=== PATIENT | male | born 1960 | race Caucasian/White ===

== ENCOUNTER 2018-08-11 12:07 | Inpatient (IN) | payer OTHER ==
--- NOTE | 2018-08-11 12:32 | PDOC ---
Rapid Medical Evaluation Chief Complaint: Edema Time Seen by Provider: 08/11/18 12:29 Medical Evaluation: Allergies Allergy/AdvReac Type Severity Reaction Status Date / Time No Known Allergies Allergy Verified 08/06/18 10:28 08/11/18 12:29 I have performed a brief in-person evaluation of this patient The patient present with a chief complaint of: wound to both lower extremities x [address] Madsen to admit to Dr. Mondragon service for iv antibiotics and further evaluation of wound Pertinent physical exam findings: NAD even and unlabored breathing dressing in place I have ordered the following: labs ordered The patient will proceed to the ED for further evaluation. Discharge Disposition - Diagnosis Wound infection - Referrals - Patient Instructions - Post Discharge Activity
[2018-08-11] MEDS ORDERED: VANCOMYCIN 1 GM in D5W (PRE-DOCKED) 1,000 MG/250 ML IVPB ONE (14:03)
[2018-08-11] MEDS ORDERED: PIPERACILLIN/TAZOB 3.375 GM 3.375 GM in DEXTROSE 5%-WATER - 50 ML IVPB SCH (14:15)
--- NOTE | 2018-08-11 15:05 | CON.ID ---
Consult Consult Specialty:: infectious diseases Referred by:: Reason for Consultation:: wound on both legs,probably osteo of the rt leg - History of Present Illness Chief Complaint: non healing wounds of the legs History of Present Illness: 57-year-old male presents with 2 wounds to his lower extremity one to his right foot and went to his left ankle both which he has received wound care and oral antibiotics without improvement. Patient denies fever but states his glucose has been in the 300s and states pain has increased to the areas. Patient denies fever, chills or weakness patient wound has been evaluated the wound on the right on the small toe with a hole beneath it which when probed reaches to bone which is osteo patient is going to get worked up with cx and also with mri to see how many bones are affected patient otherwise doing well - History Source History Provided By: Patient Limitations to Obtaining History: No Limitations - Alcohol/Substance Use Hx Alcohol Use: No - Smoking History Smoking history: Never smoked Have you smoked in the past 12 months: No Home Medications - Allergies Allergies/Adverse Reactions: Allergies Allergy/AdvReac Type Severity Reaction Status Date / Time No Known Allergies Allergy Verified 08/11/18 17:22 - Home Medications Home Medications: Ambulatory Orders RX: Ertapenem Sodium [Invanz -] 1 gm IVPB DAILY #30 vial 08/15/18 RX: Vancomycin HCl 1,250 mg IVPB Q24H #30 vial 08/15/18 Review of Systems - Review of Systems Constitutional: reports: No Symptoms Eyes: reports: No Symptoms HENT: reports: No Symptoms Neck: reports: No Symptoms Cardiovascular: reports: No Symptoms Respiratory: reports: No Symptoms Gastrointestinal: reports: No Symptoms Genitourinary: reports: No Symptoms Musculoskeletal: reports: Extremity Pain Integumentary: reports: Erythema, Wound, Other Neurological: reports: No Symptoms Endocrine: reports: No Symptoms Hematology/Lymphatic: reports: No Symptoms Psychiatric: reports: No Symptoms Physical Exam Vital Signs: Vital Signs Temperature 97.9 F 08/11/18 12:29 Pulse Rate 93 H 08/11/18 12:29 Respiratory Rate 20 08/11/18 12:29 Blood Pressure 111/77 08/11/18 12:29 O2 Sat by Pulse Oximetry (%) 98 08/11/18 12:29 Constitutional: Yes: Well Nourished, No Distress, Calm Eyes: Yes: Conjunctiva Clear Neck: Yes: Supple, Trachea Midline Cardiovascular: Yes: Regular Rate and Rhythm Respiratory: Yes: Regular, CTA Bilaterally Gastrointestinal: Yes: Normal Bowel Sounds, Soft Musculoskeletal: Yes: WNL Extremities: Yes: Erythema (left leg), Other Wound/Incision: Yes: Other (rt) Neurological: Yes: Alert, Oriented Psychiatric: Yes: Alert, Oriented Imaging - Results Chest X-ray: Report Reviewed, Image Reviewed Assessment/Plan wound infection rt foot osteo cellulitis of the left foot dm plan we will get mri of the foot will start on abx await for cx reports rest as per the team wound care
--- NOTE | 2018-08-11 15:16 | PDOC ---
History of Present Illness - General Chief Complaint: Wound Stated Complaint: ALEXANDREA SWOLLEN LEGS Time Seen by Provider: 08/11/18 12:29 History Source: Patient Exam Limitations: No Limitations - History of Present Illness Initial Comments: 08/11/18 14:17 57-year-old male presents to the ED for evaluation and admission sent over from wound care. Patient currently with 2 wounds to his lower extremity one to his right foot and went to his left ankle both which he has received wound care for an antibiotics without improvement. Patient denies fever but states his glucose has been in the 300s and states pain has increased to the areas. Patient denies fever, chills or weakness Timing/Duration: getting worse Severity: moderate Associated Symptoms: reports: other Past History - Travel Traveled outside of the country in the last 30 days: No Close contact w/someone who was outside of country & ill: No - Past Medical History Allergies/Adverse Reactions: Allergies Allergy/AdvReac Type Severity Reaction Status Date / Time No Known Allergies Allergy Verified 08/06/18 10:28 Home Medications: Ambulatory Orders Aspirin 81 mg PO DAILY 08/06/18 Humalog 10 units SCJ AC 08/06/18 Lantus 25 units SCJ DAILY 08/06/18 Lisinopril 1 tab PO DAILY 08/06/18 Torsemide DAILY 08/06/18 Cardiac Disorders: Yes (PPM/DEFIBRILLATOR) Diabetes: Yes HTN: Yes - Surgical History Cardiac Surgery: Yes (poacemaker/defibrillator) - Suicide/Smoking/Psychosocial Hx Smoking History: Never smoked Have you smoked in the past 12 months: No Information on smoking cessation initiated: No Hx Alcohol Use: No Drug/Substance Use Hx: No Patient Lives Alone: No Lives with/in: spouse/SO Review of Systems - Review of Systems Able to Perform ROS?: No Is the patient limited Lao proficient: No Constitutional: No: Symptoms Reported Respiratory: No: Symptoms reported Cardiac (ROS): No: Symptoms Reported Musculoskeletal: No: Symptoms Reported Integumentary: Yes: Other (open wounds) Hematologic/Lymphatic: No: Symptoms Reported *Physical Exam - Vital Signs Last Vital Signs Temp Pulse Resp BP Pulse Ox 97.9 F 93 H 20 111/77 98 08/11/18 12:29 08/11/18 12:29 08/11/18 12:29 08/11/18 12:29 08/11/18 12:29 - Physical Exam General Appearance: Yes: Nourished, Appropriately Dressed. No: Apparent Distress Respiratory/Chest: positive: Lungs Clear, Normal Breath Sounds. negative: Respiratory Distress, Accessory Muscle Use Cardiovascular: positive: Regular Rhythm, Regular Rate. negative: Murmur Vascular Pulses: Dorsalis-Pedis (R): 2+, Doralis-Pedis (L): 2+ Extremity: positive: Normal Capillary Refill. negative: Pedal Edema Integumentary: positive: Other (noted 1 x 2 cm open moist wound to the base of his right fifth toe. Surrounding skin intact. lateral aspect of left malleolus with open 4 x 4 cm moist wound without odor) ED Treatment Course - RADIOLOGY Radiology Studies Ordered: Category Date Time Status DUPLEX VASCUL US-1 LEG [US] Stat Ultrasound 08/11/18 13:58 Ordered Medical Decision Making - Medical Decision Making 08/11/18 14:22 Complaint: Nonhealing diabetic wound to his right foot and left ankle. Labs reviewed in patient with elevated CRP and ESR concerning for infection. X-ray reviewed with no obvious findings recommending MRI Exam. Patient with 2 nonhealing moist wounds to his right foot and left ankle. Plan: Labs, blood cultures, IV antibiotics, urine and will contact infectious disease as per wound care clinic recommendations 08/11/18 15:25 Negative for acute findings. Patient was seen by infectious disease physician and agrees with workup. Case discussed with Dr. wilde and accepted to service. *DC/Admit/Observation/Transfer Diagnosis at time of Disposition: Wound infection - Discharge Dispostion Decision to Admit order: Yes - Referrals - Patient Instructions - Post Discharge Activity
[2018-08-11] MEDS ORDERED: PIPERACILLIN/TAZOB 3.375 GM 3.375 GM/50 ML BAG IVPB ONE (15:56)
[2018-08-11 16:38] LABS: VENOUS PC02 59.1 mmHg (41-51); VENOUS PH 7.33 (7.31-7.41); VENOUS PO2 28.2 mmHg (30-40)
[2018-08-11 17:04] LABS: ALBUMIN 3.4 g/dl (3.4-5.0); ALK PHOS 141 U/L (45-117); ANION GAP 5 MMOL/L (8-16); BILIRUBIN,TOTAL 0.5 mg/dL (0.2-1); BLOOD UREA NITROGEN 34 mg/dL (7-18); CALCIUM 9.2 mg/dL (8.5-10.1); CHLORIDE 94 mmol/L (98-107); CO2 30 mmol/L (21-32); CREATININE 1.8 mg/dL (0.55-1.3); POTASSIUM 5.2 mmol/L (3.5-5.1); SGOT/AST 13 U/L (15-37); SGPT/ALT 18 U/L (13-61); SODIUM 129 mmol/L (136-145); TOT PROT 7.9 g/dl (6.4-8.2)
[2018-08-11 17:06] LABS: INR 1.09 (0.83-1.09); PROTHROMBIN TIME (PATIENT) 12.9 SEC (9.7-13.0)
[2018-08-11 17:14] LABS: GLUCOSE,RANDOM 398 mg/dL (74-106)
[2018-08-11] MEDS ORDERED: SODIUM CHLORIDE 1,000 ML IV STA (17:28)
[2018-08-11 18:29] LABS: BASO % 4.1 % (0-2.0); EOS % 3.7 % (0-4.5); HEMOGLOBIN 12.7 GM/dL (11.7-16.9); LYMPH % 17.6 % (8-40); MCHC 31.7 g/dl (32.0-35.9); MEAN CELL VOLUME 72.5 fl (80-96); MEAN PLT VOLUME 7.7 fl (7.5-11.1); MONO % 9.3 % (3.8-10.2); NEUT % 65.3 % (42.8-82.8); PLATELET COUNT 421 K/MM3 (134-434); RBC 5.52 M/mm3 (4.00-5.60); RDW 15.5 % (11.9-15.9); WHITE BLOOD COUNT 10.1 K/mm3 (4.0-10.0)
--- NOTE | 2018-08-11 20:06 | HP ---
Admitting History and Physical - Primary Care Physician PCP: Tyshawn Reynolds - Admission History of Present Illness: 57-year-old male presents to the ED for evaluation and admission sent over from wound care. Patient currently with 2 wounds to his lower extremity one to his right foot and went to his left ankle both which he has received wound care for an antibiotics without improvement. Patient denies fever but states his glucose has been in the 300s and states pain has increased to the areas. Patient denies fever, chills or weakness - Smoking History Smoking history: Never smoked Have you smoked in the past 12 months: No - Alcohol/Substance Use Hx Alcohol Use: No Home Medications - Allergies Allergies/Adverse Reactions: Allergies Allergy/AdvReac Type Severity Reaction Status Date / Time No Known Allergies Allergy Verified 08/11/18 17:22 - Home Medications Home Medications: Ambulatory Orders Unobtainable 08/11/18 Physical Examination Vital Signs: Vital Signs Temperature 98.0 F 08/11/18 18:23 Pulse Rate 90 08/11/18 18:23 Respiratory Rate 18 08/11/18 18:23 Blood Pressure 108/71 08/11/18 18:23 O2 Sat by Pulse Oximetry (%) 97 08/11/18 18:23 Constitutional: Yes: No Distress HENT: Yes: Atraumatic Neck: Yes: Supple Cardiovascular: Yes: Regular Rate and Rhythm Respiratory: Yes: CTA Bilaterally Gastrointestinal: Yes: Normal Bowel Sounds Extremities: Yes: Other (L ankle and R foot wound) Neurological: Yes: Alert, Oriented Labs: CBC, BMP 08/11/18 16:00 08/11/18 16:00 Problem List - Problems (1) Wound infection Assessment/Plan: L ankles r foot on abx wound care Code(s): T14.8XXA - OTHER INJURY OF UNSPECIFIED BODY REGION, INITIAL ENCOUNTER; L08.9 - LOCAL INFECTION OF THE SKIN AND SUBCUTANEOUS TISSUE, UNSP (2) Diabetes Assessment/Plan: on insulin and bgms Code(s): E11.9 - TYPE 2 DIABETES MELLITUS WITHOUT COMPLICATIONS Assessment/Plan Laboratory Tests 08/11/18 08/11/18 08/11/18 16:00 16:00 16:00 WBC 10.1 H RBC 5.52 Hgb 12.7 Hct 40.0 MCV 72.5 L MCH 23.0 L MCHC 31.7 L RDW 15.5 Plt Count 421 MPV 7.7 Absolute Neuts (auto) 6.6 Neutrophils % 65.3 Lymphocytes % 17.6 D Monocytes % 9.3 Eosinophils % 3.7 Basophils % 4.1 H D Nucleated RBC % 0 PT with INR 12.90 INR 1.09 PTT (Actin FS) 40.0 H VBG pH 7.33 POC VBG pCO2 59.1 H POC VBG pO2 28.2 L VBG HCO3 30.5 H VBG O2 Sat (John) 43.6 L VBG Base Excess 3.6 H Sodium Potassium Chloride Carbon Dioxide Anion Gap BUN Creatinine Creat Clearance w eGFR Random Glucose Calcium Total Bilirubin AST ALT Alkaline Phosphatase Total Protein Albumin 08/11/18 16:00 WBC RBC Hgb Hct MCV MCH MCHC RDW Plt Count MPV Absolute Neuts (auto) Neutrophils % Lymphocytes % Monocytes % Eosinophils % Basophils % Nucleated RBC % PT with INR INR PTT (Actin FS) VBG pH POC VBG pCO2 POC VBG pO2 VBG HCO3 VBG O2 Sat (John) VBG Base Excess Sodium 129 L Potassium 5.2 H Chloride 94 L Carbon Dioxide 30 Anion Gap 5 L BUN 34 H Creatinine 1.8 H Creat Clearance w eGFR 39.37 Random Glucose 398 H* Calcium 9.2 Total Bilirubin 0.5 AST 13 L ALT 18 Alkaline Phosphatase 141 H Total Protein 7.9 Albumin 3.4 Laboratory Tests 08/11/18 08/11/18 08/11/18 16:00 16:00 16:00 WBC 10.1 H RBC 5.52 Hgb 12.7 Hct 40.0 MCV 72.5 L MCH 23.0 L MCHC 31.7 L RDW 15.5 Plt Count 421 MPV 7.7 Absolute Neuts (auto) 6.6 Neutrophils % 65.3 Lymphocytes % 17.6 D Monocytes % 9.3 Eosinophils % 3.7 Basophils % 4.1 H D Nucleated RBC % 0 PT with INR 12.90 INR 1.09 PTT (Actin FS) 40.0 H VBG pH 7.33 POC VBG pCO2 59.1 H POC VBG pO2 28.2 L VBG HCO3 30.5 H VBG O2 Sat (John) 43.6 L VBG Base Excess 3.6 H Sodium Potassium Chloride Carbon Dioxide Anion Gap BUN Creatinine Creat Clearance w eGFR Random Glucose Calcium Total Bilirubin AST ALT Alkaline Phosphatase Total Protein Albumin 08/11/18 16:00 WBC RBC Hgb Hct MCV MCH MCHC RDW Plt Count MPV Absolute Neuts (auto) Neutrophils % Lymphocytes % Monocytes % Eosinophils % Basophils % Nucleated RBC % PT with INR INR PTT (Actin FS) VBG pH POC VBG pCO2 POC VBG pO2 VBG HCO3 VBG O2 Sat (John) VBG Base Excess Sodium 129 L Potassium 5.2 H Chloride 94 L Carbon Dioxide 30 Anion Gap 5 L BUN 34 H Creatinine 1.8 H Creat Clearance w eGFR 39.37 Random Glucose 398 H* Calcium 9.2 Total Bilirubin 0.5 AST 13 L ALT 18 Alkaline Phosphatase 141 H Total Protein 7.9 Albumin 3.4 Active Medications Generic Name Dose Route Start Last Admin Trade Name Freq PRN Reason Stop Dose Admin Acetaminophen 650 mg 08/11/18 20:07 Tylenol - PO Q6H PRN FEVER Al Hydroxide/Mg Hydroxide 30 ml 08/12/18 13:23 08/13/18 08:57 Mylanta Oral Suspension - PO 30 ml Q6H PRN Administration INDIGESTION Heparin Sodium (Porcine) 5,000 unit 08/11/18 22:00 08/14/18 10:18 Heparin - SQ 5,000 unit BID ANGELICA Administration Piperacillin Sod/Tazobactam 50 mls @ 100 mls/hr 08/11/18 21:30 08/14/18 13:59 Sod 2.25 gm/ Dextrose IVPB 100 mls/hr Q6H-IV ANGELICA Administration Protocol Insulin Aspart 1 vial 08/13/18 22:00 08/14/18 11:45 Novolog Vial Sliding Scale - SQ 8 units ACHS ANGELICA Administration Protocol Ondansetron HCl 4 mg 08/12/18 13:23 08/12/18 14:14 Zofran Injection IVPUSH 4 mg Q6H PRN Administration NAUSEA AND/OR VOMITING Pantoprazole Sodium 40 mg 08/12/18 13:30 08/14/18 10:18 Protonix - PO 40 mg DAILY ANGELICA Administration
[2018-08-11] MEDS ORDERED: ACETAMINOPHEN 325 MG TABLET (FP) PO PRN (20:07)
[2018-08-11] MEDS ORDERED: HEPARIN NA (PORCINE) 5,000 UNITS/ML 1ML VIAL SQ SCH (22:00)
[2018-08-11] MEDS ORDERED: DEXTROSE 5%-WATER - 50 ML IVPB ONE (22:31)
[2018-08-11] MEDS ORDERED: PIPERACILLIN/TAZOBACTAM 2.25 GM VIAL IVPB ONE (22:31)
[2018-08-11] MEDS: HEPARIN NA (PORCINE) 5,000 UNITS/ML 1ML VIAL SQ SCH (22:38)
[2018-08-11] MEDS: PIPERACILLIN/TAZOB 2.25 GM 2.25 GM in DEXTROSE 5%-WATER - 50 ML IVPB SCH (22:38)
[2018-08-12] MEDS ORDERED: PIPERACILLIN/TAZOBACTAM 2.25 GM VIAL IVPB ONE ×3 (02:29→14:30)
[2018-08-12] MEDS ORDERED: DEXTROSE 5%-WATER - 50 ML IVPB ONE ×3 (02:30→14:30)
[2018-08-12] MEDS: PIPERACILLIN/TAZOB 2.25 GM 2.25 GM in DEXTROSE 5%-WATER - 50 ML IVPB SCH ×4 (02:45→15:59)
[2018-08-12] MEDS: HEPARIN NA (PORCINE) 5,000 UNITS/ML 1ML VIAL SQ SCH (09:54)
--- NOTE | 2018-08-12 12:39 | PN ---
Progress Note, Physician History of Present Illness: patient feeling nauseous says he is throwing up - Current Medication List Current Medications: Active Medications Acetaminophen (Tylenol -) 650 mg PO Q6H PRN PRN Reason: FEVER Heparin Sodium (Porcine) (Heparin -) 5,000 unit SQ BID ANGELICA Last Admin: 08/12/18 09:54 Dose: 5,000 unit Piperacillin Sod/Tazobactam (Sod 2.25 gm/ Dextrose) 50 mls @ 100 mls/hr IVPB Q6H-IV ANGELICA; Protocol Last Admin: 08/12/18 09:54 Dose: 100 mls/hr - Objective Vital Signs: Vital Signs Temperature 99 F 08/12/18 05:48 Pulse Rate 90 08/12/18 05:48 Respiratory Rate 20 08/12/18 05:48 Blood Pressure 147/78 08/12/18 05:48 O2 Sat by Pulse Oximetry (%) 97 08/11/18 18:23 Constitutional: Yes: No Distress, Calm Cardiovascular: Yes: Regular Rate and Rhythm Respiratory: Yes: Regular, CTA Bilaterally Gastrointestinal: Yes: Normal Bowel Sounds, Soft Musculoskeletal: Yes: WNL Extremities: Yes: Other (osteo of the rt foot wounds on the left foot) Wound/Incision: Yes: Dressing Dry and Intact Neurological: Yes: Alert, Oriented Labs: CBC, BMP 08/11/18 16:00 08/11/18 16:00 INR, PTT INR 1.09 (0.83-1.09) 08/11/18 16:00 Assessment/Plan this patient with multiple medical problems who has wound going to the bone who was growing pseudomonas from the outside wound plan we will continue zosyn will get a mri of the leg rest as per the team will order esr and crp
[2018-08-12] MEDS ORDERED: ONDANSETRON 4 MG/2 ML VIAL IVPUSH PRN (13:23)
[2018-08-12] MEDS: MAG HYDROX/AL HYDROX/SIMETH 30 ML UNIT-DOSE CUP PO PRN (14:15)
[2018-08-12] MEDS: PANTOPRAZOLE 40 MG TABLET (FP) PO SCH (14:15)
--- NOTE | 2018-08-12 18:22 | PN ---
Progress Note, Physician - Current Medication List Current Medications: Active Medications Acetaminophen (Tylenol -) 650 mg PO Q6H PRN PRN Reason: FEVER Al Hydroxide/Mg Hydroxide (Mylanta Oral Suspension -) 30 ml PO Q6H PRN PRN Reason: INDIGESTION Last Admin: 08/12/18 14:15 Dose: 30 ml Heparin Sodium (Porcine) (Heparin -) 5,000 unit SQ BID ANGELICA Last Admin: 08/12/18 09:54 Dose: 5,000 unit Piperacillin Sod/Tazobactam (Sod 2.25 gm/ Dextrose) 50 mls @ 100 mls/hr IVPB Q6H-IV ANGELICA; Protocol Last Admin: 08/12/18 15:59 Dose: 100 mls/hr Ondansetron HCl (Zofran Injection) 4 mg IVPUSH Q6H PRN PRN Reason: NAUSEA AND/OR VOMITING Last Admin: 08/12/18 14:14 Dose: 4 mg Pantoprazole Sodium (Protonix -) 40 mg PO DAILY ANGELICA Last Admin: 08/12/18 14:15 Dose: 40 mg - Objective Vital Signs: Vital Signs Temperature 99 F 08/12/18 05:48 Pulse Rate 90 08/12/18 05:48 Respiratory Rate 20 08/12/18 05:48 Blood Pressure 147/78 08/12/18 05:48 O2 Sat by Pulse Oximetry (%) 97 08/11/18 18:23 Constitutional: Yes: No Distress HENT: Yes: Atraumatic Neck: Yes: Supple Cardiovascular: Yes: Regular Rate and Rhythm Respiratory: Yes: CTA Bilaterally Gastrointestinal: Yes: Normal Bowel Sounds Extremities: Yes: Other (b/l ankle wounds) Neurological: Yes: Alert, Oriented Labs: CBC, BMP 08/11/18 16:00 08/11/18 16:00 INR, PTT INR 1.09 (0.83-1.09) 08/11/18 16:00 Problem List - Problems (1) Wound infection Assessment/Plan: L ankles r foot on abx wound care Code(s): T14.8XXA - OTHER INJURY OF UNSPECIFIED BODY REGION, INITIAL ENCOUNTER; L08.9 - LOCAL INFECTION OF THE SKIN AND SUBCUTANEOUS TISSUE, UNSP (2) Diabetes Assessment/Plan: on insulin and bgms Code(s): E11.9 - TYPE 2 DIABETES MELLITUS WITHOUT COMPLICATIONS
[2018-08-13] MEDS ORDERED: PIPERACILLIN/TAZOBACTAM 2.25 GM VIAL IVPB ONE ×5 (00:31→21:42)
[2018-08-13] MEDS ORDERED: DEXTROSE 5%-WATER - 50 ML IVPB ONE ×5 (00:31→21:42)
[2018-08-13] MEDS: HEPARIN NA (PORCINE) 5,000 UNITS/ML 1ML VIAL SQ SCH ×3 (00:52→22:00)
[2018-08-13] MEDS: PIPERACILLIN/TAZOB 2.25 GM 2.25 GM in DEXTROSE 5%-WATER - 50 ML IVPB SCH ×5 (00:52→21:52)
[2018-08-13 07:09] LABS: EOS % 9.1 % (0-4.5); HEMATOCRIT 38.1 % (35.4-49); HEMOGLOBIN 12.2 GM/dL (11.7-16.9); LYMPH % 24.8 % (8-40); MCHC 32.1 g/dl (32.0-35.9); MEAN CELL VOLUME 71.8 fl (80-96); MEAN PLT VOLUME 7.7 fl (7.5-11.1); MONO % 8.6 % (3.8-10.2); NEUT % 56.5 % (42.8-82.8); PLATELET COUNT 447 K/MM3 (134-434); RBC 5.31 M/mm3 (4.00-5.60); RDW 15.7 % (11.9-15.9); WHITE BLOOD COUNT 8.5 K/mm3 (4.0-10.0)
[2018-08-13 07:37] LABS: ALBUMIN 3.1 g/dl (3.4-5.0); ALK PHOS 118 U/L (45-117); ANION GAP 7 MMOL/L (8-16); BILIRUBIN,TOTAL 0.5 mg/dL (0.2-1); BLOOD UREA NITROGEN 15 mg/dL (7-18); CALCIUM 8.6 mg/dL (8.5-10.1); CHLORIDE 103 mmol/L (98-107); CO2 26 mmol/L (21-32); CREATININE 1.5 mg/dL (0.55-1.3); GLUCOSE,RANDOM 213 mg/dL (74-106); POTASSIUM 4.7 mmol/L (3.5-5.1); SGOT/AST 13 U/L (15-37); SGPT/ALT 16 U/L (13-61); SODIUM 135 mmol/L (136-145); TOT PROT 7.1 g/dl (6.4-8.2)
[2018-08-13] MEDS: MAG HYDROX/AL HYDROX/SIMETH 30 ML UNIT-DOSE CUP PO PRN (08:57)
[2018-08-13] MEDS: PANTOPRAZOLE 40 MG TABLET (FP) PO SCH (09:00)
--- NOTE | 2018-08-13 10:58 | PN ---
Progress Note, Physician History of Present Illness: stable no new issues - Current Medication List Current Medications: Active Medications Acetaminophen (Tylenol -) 650 mg PO Q6H PRN PRN Reason: FEVER Al Hydroxide/Mg Hydroxide (Mylanta Oral Suspension -) 30 ml PO Q6H PRN PRN Reason: INDIGESTION Last Admin: 08/13/18 08:57 Dose: 30 ml Heparin Sodium (Porcine) (Heparin -) 5,000 unit SQ BID ANGELICA Last Admin: 08/13/18 09:11 Dose: 5,000 unit Piperacillin Sod/Tazobactam (Sod 2.25 gm/ Dextrose) 50 mls @ 100 mls/hr IVPB Q6H-IV ANGELICA; Protocol Last Admin: 08/13/18 08:58 Dose: 100 mls/hr Ondansetron HCl (Zofran Injection) 4 mg IVPUSH Q6H PRN PRN Reason: NAUSEA AND/OR VOMITING Last Admin: 08/12/18 14:14 Dose: 4 mg Pantoprazole Sodium (Protonix -) 40 mg PO DAILY ANGELICA Last Admin: 08/13/18 09:00 Dose: 40 mg - Objective Vital Signs: Vital Signs Temperature 98.3 F 08/13/18 09:00 Pulse Rate 72 08/13/18 09:00 Respiratory Rate 20 08/13/18 09:00 Blood Pressure 141/88 08/13/18 09:00 O2 Sat by Pulse Oximetry (%) 97 08/11/18 18:23 Constitutional: Yes: No Distress, Calm Cardiovascular: Yes: Regular Rate and Rhythm Respiratory: Yes: Regular, CTA Bilaterally Gastrointestinal: Yes: Normal Bowel Sounds, Soft Musculoskeletal: Yes: WNL Extremities: Yes: Other Wound/Incision: Yes: Dressing Dry and Intact Neurological: Yes: Alert, Oriented Psychiatric: Yes: Alert, Oriented Labs: CBC, BMP 08/13/18 05:30 08/13/18 05:30 INR, PTT INR 1.09 (0.83-1.09) 08/11/18 16:00 Assessment/Plan wound infection rt foot osteo cellulitis of the left foot dm plan will switch for patient to get a nuclear scan continue abx wound care await for cx once we have cx will decide final plan
[2018-08-13] MEDS ORDERED: INSULIN (NOVOLOG) ASPART 100 UNITS/ML 10ML VIAL SQ ONE (12:45)
[2018-08-13 15:26] VITALS: BMI 26.7
--- NOTE | 2018-08-13 17:26 | PN ---
Progress Note, Physician - Current Medication List Current Medications: Active Medications Acetaminophen (Tylenol -) 650 mg PO Q6H PRN PRN Reason: FEVER Al Hydroxide/Mg Hydroxide (Mylanta Oral Suspension -) 30 ml PO Q6H PRN PRN Reason: INDIGESTION Last Admin: 08/13/18 08:57 Dose: 30 ml Heparin Sodium (Porcine) (Heparin -) 5,000 unit SQ BID ANGELICA Last Admin: 08/13/18 09:11 Dose: 5,000 unit Piperacillin Sod/Tazobactam (Sod 2.25 gm/ Dextrose) 50 mls @ 100 mls/hr IVPB Q6H-IV ANGELICA; Protocol Last Admin: 08/13/18 14:42 Dose: 100 mls/hr Ondansetron HCl (Zofran Injection) 4 mg IVPUSH Q6H PRN PRN Reason: NAUSEA AND/OR VOMITING Last Admin: 08/12/18 14:14 Dose: 4 mg Pantoprazole Sodium (Protonix -) 40 mg PO DAILY ANGELICA Last Admin: 08/13/18 09:00 Dose: 40 mg - Objective Vital Signs: Vital Signs Temperature 98.3 F 08/13/18 09:00 Pulse Rate 72 08/13/18 09:00 Respiratory Rate 20 08/13/18 09:00 Blood Pressure 141/88 08/13/18 09:00 O2 Sat by Pulse Oximetry (%) 97 08/13/18 09:00 HENT: Yes: Atraumatic Neck: Yes: Supple Cardiovascular: Yes: Regular Rate and Rhythm Respiratory: Yes: CTA Bilaterally Gastrointestinal: Yes: Normal Bowel Sounds Extremities: Yes: Other (wound left ankle r foot) Edema: No Neurological: Yes: Alert, Oriented Labs: CBC, BMP 08/13/18 05:30 08/13/18 05:30 INR, PTT INR 1.09 (0.83-1.09) 08/11/18 16:00 Problem List - Problems (1) Wound infection Assessment/Plan: both ankles on abx wound care Code(s): T14.8XXA - OTHER INJURY OF UNSPECIFIED BODY REGION, INITIAL ENCOUNTER; L08.9 - LOCAL INFECTION OF THE SKIN AND SUBCUTANEOUS TISSUE, UNSP
[2018-08-13] MEDS: INSULIN SLIDING SCALE (NOVOLOG) 1 VIAL SQ SCH (22:01)
[2018-08-14] MEDS ORDERED: PIPERACILLIN/TAZOBACTAM 2.25 GM VIAL IVPB ONE ×3 (02:42→21:15)
[2018-08-14] MEDS ORDERED: DEXTROSE 5%-WATER - 50 ML IVPB ONE ×2 (02:43→21:16)
[2018-08-14] MEDS: PIPERACILLIN/TAZOB 2.25 GM 2.25 GM in DEXTROSE 5%-WATER - 50 ML IVPB SCH ×4 (02:49→21:28)
[2018-08-14] MEDS ORDERED: INSULIN (NOVOLOG) ASPART 100 UNITS/ML 10ML VIAL ONE (06:33)
[2018-08-14] MEDS: INSULIN SLIDING SCALE (NOVOLOG) 1 VIAL SQ SCH ×4 (06:37→21:28)
[2018-08-14] MEDS ORDERED: DEXTROSE 5%-WATER - 100 ML IVPB ONE (10:10)
[2018-08-14] MEDS: HEPARIN NA (PORCINE) 5,000 UNITS/ML 1ML VIAL SQ SCH ×2 (10:18→21:28)
[2018-08-14] MEDS: PANTOPRAZOLE 40 MG TABLET (FP) PO SCH (10:18)
--- NOTE | 2018-08-14 16:56 | PN ---
Progress Note, Physician - Current Medication List Current Medications: Active Medications Acetaminophen (Tylenol -) 650 mg PO Q6H PRN PRN Reason: FEVER Al Hydroxide/Mg Hydroxide (Mylanta Oral Suspension -) 30 ml PO Q6H PRN PRN Reason: INDIGESTION Last Admin: 08/13/18 08:57 Dose: 30 ml Heparin Sodium (Porcine) (Heparin -) 5,000 unit SQ BID [facility] Last Admin: 08/14/18 10:18 Dose: 5,000 unit Piperacillin Sod/Tazobactam (Sod 2.25 gm/ Dextrose) 50 mls @ 100 mls/hr IVPB Q6H-IV ANGELICA; Protocol Last Admin: 08/14/18 13:59 Dose: 100 mls/hr Insulin Aspart (Novolog Vial Sliding Scale -) 1 vial SQ ACHS [facility]; Protocol Last Admin: 08/14/18 11:45 Dose: 8 units Ondansetron HCl (Zofran Injection) 4 mg IVPUSH Q6H PRN PRN Reason: NAUSEA AND/OR VOMITING Last Admin: 08/12/18 14:14 Dose: 4 mg Pantoprazole Sodium (Protonix -) 40 mg PO DAILY [facility] Last Admin: 08/14/18 10:18 Dose: 40 mg - Objective Vital Signs: Vital Signs Temperature 97.5 F L 08/14/18 14:40 Pulse Rate 81 08/14/18 14:40 Respiratory Rate 20 08/14/18 06:00 Blood Pressure 148/83 08/14/18 14:40 O2 Sat by Pulse Oximetry (%) 97 08/13/18 09:00 Constitutional: Yes: No Distress HENT: Yes: Atraumatic Neck: Yes: Supple Cardiovascular: Yes: Regular Rate and Rhythm Respiratory: Yes: CTA Bilaterally Gastrointestinal: Yes: Normal Bowel Sounds Extremities: Yes: Other (left and and R foot wound) Neurological: Yes: Alert, Oriented Labs: CBC, BMP 08/13/18 05:30 08/13/18 05:30 INR, PTT INR 1.09 (0.83-1.09) 08/11/18 16:00 Problem List - Problems (1) Wound infection Assessment/Plan: L ankles..r foot on abx wound care Code(s): T14.8XXA - OTHER INJURY OF UNSPECIFIED BODY REGION, INITIAL ENCOUNTER; L08.9 - LOCAL INFECTION OF THE SKIN AND SUBCUTANEOUS TISSUE, UNSP (2) Diabetes Assessment/Plan: on insulin and bgms Code(s): E11.9 - TYPE 2 DIABETES MELLITUS WITHOUT COMPLICATIONS
--- NOTE | 2018-08-14 17:46 | PN ---
Progress Note, Physician History of Present Illness: patient doing well no new issues patient cannot get a mri calustrophobic - Current Medication List Current Medications: Active Medications Acetaminophen (Tylenol -) 650 mg PO Q6H PRN PRN Reason: FEVER Al Hydroxide/Mg Hydroxide (Mylanta Oral Suspension -) 30 ml PO Q6H PRN PRN Reason: INDIGESTION Last Admin: 08/13/18 08:57 Dose: 30 ml Heparin Sodium (Porcine) (Heparin -) 5,000 unit SQ BID ANGELICA Last Admin: 08/14/18 10:18 Dose: 5,000 unit Piperacillin Sod/Tazobactam (Sod 2.25 gm/ Dextrose) 50 mls @ 100 mls/hr IVPB Q6H-IV ANGELICA; Protocol Last Admin: 08/14/18 13:59 Dose: 100 mls/hr Insulin Aspart (Novolog Vial Sliding Scale -) 1 vial SQ ACHS ANGELICA; Protocol Last Admin: 08/14/18 17:22 Dose: 10 units Ondansetron HCl (Zofran Injection) 4 mg IVPUSH Q6H PRN PRN Reason: NAUSEA AND/OR VOMITING Last Admin: 08/12/18 14:14 Dose: 4 mg Pantoprazole Sodium (Protonix -) 40 mg PO DAILY ANGELICA Last Admin: 08/14/18 10:18 Dose: 40 mg - Objective Vital Signs: Vital Signs Temperature 97.5 F L 08/14/18 14:40 Pulse Rate 81 08/14/18 14:40 Respiratory Rate 20 08/14/18 06:00 Blood Pressure 148/83 08/14/18 14:40 O2 Sat by Pulse Oximetry (%) 97 08/13/18 09:00 Constitutional: Yes: Well Nourished, No Distress Neck: Yes: Supple Cardiovascular: Yes: Regular Rate and Rhythm Respiratory: Yes: Regular, CTA Bilaterally Musculoskeletal: Yes: WNL Extremities: Yes: Other Neurological: Yes: Alert, Oriented Psychiatric: Yes: Alert, Oriented Labs: CBC, BMP 08/13/18 05:30 08/13/18 05:30 INR, PTT INR 1.09 (0.83-1.09) 08/11/18 16:00 Assessment/Plan this patient with multiple medical problems who has wound going to the bone who was growing pseudomonas from the outside wound plan we will continue zosyn cannot get a mri ordered a stat triphase scan will also get a picc line tomorrow plan treatment rest as per the team
[2018-08-15] MEDS ORDERED: PIPERACILLIN/TAZOBACTAM 2.25 GM VIAL IVPB ONE ×2 (03:06→09:05)
[2018-08-15] MEDS ORDERED: DEXTROSE 5%-WATER - 50 ML IVPB ONE ×2 (03:06→09:06)
[2018-08-15] MEDS: PIPERACILLIN/TAZOB 2.25 GM 2.25 GM in DEXTROSE 5%-WATER - 50 ML IVPB SCH ×2 (03:07→09:19)
[2018-08-15] MEDS: INSULIN SLIDING SCALE (NOVOLOG) 1 VIAL SQ SCH ×3 (06:00→16:41)
[2018-08-15] MEDS: PANTOPRAZOLE 40 MG TABLET (FP) PO SCH (09:19)
[2018-08-15] MEDS: HEPARIN NA (PORCINE) 5,000 UNITS/ML 1ML VIAL SQ SCH (09:19)
[2018-08-15] MEDS ORDERED: INSULIN (NOVOLOG) ASPART 100 UNITS/ML 10ML VIAL ONE ×2 (11:18→16:37)
--- NOTE | 2018-08-15 12:53 | PN ---
Progress Note, Physician - Current Medication List Current Medications: Active Medications Acetaminophen (Tylenol -) 650 mg PO Q6H PRN PRN Reason: FEVER Al Hydroxide/Mg Hydroxide (Mylanta Oral Suspension -) 30 ml PO Q6H PRN PRN Reason: INDIGESTION Last Admin: 08/13/18 08:57 Dose: 30 ml Heparin Sodium (Porcine) (Heparin -) 5,000 unit SQ BID ANGELICA Last Admin: 08/15/18 09:19 Dose: 5,000 unit Piperacillin Sod/Tazobactam (Sod 2.25 gm/ Dextrose) 50 mls @ 100 mls/hr IVPB Q6H-IV ANGELICA; Protocol Last Admin: 08/15/18 09:19 Dose: 100 mls/hr Insulin Aspart (Novolog Vial Sliding Scale -) 1 vial SQ ACHS [facility]; Protocol Last Admin: 08/15/18 11:42 Dose: 4 units Ondansetron HCl (Zofran Injection) 4 mg IVPUSH Q6H PRN PRN Reason: NAUSEA AND/OR VOMITING Last Admin: 08/12/18 14:14 Dose: 4 mg Pantoprazole Sodium (Protonix -) 40 mg PO DAILY [facility] Last Admin: 08/15/18 09:19 Dose: 40 mg - Objective Vital Signs: Vital Signs Temperature 98.1 F 08/15/18 09:00 Pulse Rate 75 08/15/18 09:00 Respiratory Rate 20 08/15/18 09:00 Blood Pressure 143/83 08/15/18 09:00 O2 Sat by Pulse Oximetry (%) 97 08/13/18 09:00 Labs: CBC, BMP 08/13/18 05:30 08/13/18 05:30 INR, PTT INR 1.09 (0.83-1.09) 08/11/18 16:00 Problem List - Problems (1) Wound infection Code(s): T14.8XXA - OTHER INJURY OF UNSPECIFIED BODY REGION, INITIAL ENCOUNTER; L08.9 - LOCAL INFECTION OF THE SKIN AND SUBCUTANEOUS TISSUE, UNSP (2) Diabetes Code(s): E11.9 - TYPE 2 DIABETES MELLITUS WITHOUT COMPLICATIONS
--- NOTE | 2018-08-15 13:20 | PN ---
Progress Note, Physician History of Present Illness: patient stable no issues 1 st phase of scan done awaiting second phase - Current Medication List Current Medications: Active Medications Acetaminophen (Tylenol -) 650 mg PO Q6H PRN PRN Reason: FEVER Al Hydroxide/Mg Hydroxide (Mylanta Oral Suspension -) 30 ml PO Q6H PRN PRN Reason: INDIGESTION Last Admin: 08/13/18 08:57 Dose: 30 ml Heparin Sodium (Porcine) (Heparin -) 5,000 unit SQ BID ANGELICA Last Admin: 08/15/18 09:19 Dose: 5,000 unit Piperacillin Sod/Tazobactam (Sod 2.25 gm/ Dextrose) 50 mls @ 100 mls/hr IVPB Q6H-IV [facility]ELICA; Protocol Last Admin: 08/15/18 09:19 Dose: 100 mls/hr Insulin Aspart (Novolog Vial Sliding Scale -) 1 vial SQ ACHS [facility]; Protocol Last Admin: 08/15/18 11:42 Dose: 4 units Ondansetron HCl (Zofran Injection) 4 mg IVPUSH Q6H PRN PRN Reason: NAUSEA AND/OR VOMITING Last Admin: 08/12/18 14:14 Dose: 4 mg Pantoprazole Sodium (Protonix -) 40 mg PO DAILY ANGELICA Last Admin: 08/15/18 09:19 Dose: 40 mg - Objective Vital Signs: Vital Signs Temperature 98.1 F 08/15/18 09:00 Pulse Rate 75 08/15/18 09:00 Respiratory Rate 20 08/15/18 09:00 Blood Pressure 143/83 08/15/18 09:00 O2 Sat by Pulse Oximetry (%) 97 08/13/18 09:00 Constitutional: Yes: No Distress, Calm Cardiovascular: Yes: Regular Rate and Rhythm Respiratory: Yes: Regular, CTA Bilaterally Gastrointestinal: Yes: Normal Bowel Sounds, Soft Musculoskeletal: Yes: WNL Extremities: Yes: Other Neurological: Yes: Alert, Oriented Psychiatric: Yes: Alert, Oriented Labs: CBC, BMP 08/13/18 05:30 08/13/18 05:30 INR, PTT INR 1.09 (0.83-1.09) 08/11/18 16:00 Assessment/Plan patients repeat cx result noted all organisms noted no pseudomonas noted rt foot osteo Wound infection Code(s): T14.8XXA - OTHER INJURY OF UNSPECIFIED BODY REGION, INITIAL ENCOUNTER; L08.9 - LOCAL INFECTION OF THE SKIN AND SUBCUTANEOUS TISSUE, UNSP cellulitis of the leg pain legs plan after looking at all the cx reports patient will need two abx vanco daily and ertapenam daily both for a total duration of 5 weeks wound care rest as per the team patient will need cbc esr crp bmp weekly wound care rest as per the team
[2018-08-15] MEDS ORDERED: VANCOMYCIN HCL 1,250 MG in DEXTROSE 5%-WATER - 250 ML IVPB SCH (14:00)
[2018-08-15] MEDS ORDERED: ERTAPENEM SODIUM 1 GM in SODIUM CHLORIDE 50 ML IVPB SCH (14:00)
--- NOTE | 2018-08-15 14:06 | DS ---
Physical Examination Vital Signs: Vital Signs Temperature 98.1 F 08/15/18 09:00 Pulse Rate 75 08/15/18 09:00 Respiratory Rate 20 08/15/18 09:00 Blood Pressure 143/83 08/15/18 09:00 O2 Sat by Pulse Oximetry (%) 97 08/13/18 09:00 Labs: CBC, BMP 08/13/18 05:30 08/13/18 05:30 Discharge Summary Reason For Visit: LOCAL INFECTION OF WOUND Current Active Problems Diabetes (Acute) Wound infection (Acute) - Instructions Diet, Activity, Other Instructions: duration of iv antibiotics per ID - Home Medications Comprehensive Discharge Medication List: Ambulatory Orders Ertapenem Sodium [Invanz -] 1 gm IVPB DAILY #30 vial 08/15/18 Vancomycin HCl 1,250 mg IVPB Q24H #30 vial 08/15/18 dc
[2018-08-15 15:29] VITALS: BP 148/73; PULSE 94; TEMP 97.5
[2018-08-15] MEDS ORDERED: PT OWN MED DRAWER 7, Y5N ONE (16:17)
== END 2018-08-15 19:35 | disposition home or self-care (01) | DRG 638 ==
LOC: JER 12:07 → JERBED 15:16 → J6S 19:19
PROVIDERS: ADMIT Internal Medicine; ATTEND Internal Medicine
PROC: 02HV33Z Insertion of Infusion Device into Superior Vena Cava, Percutaneous Approach (ICD-10-PCS; principal; 2018-08-15)
PROC: B518ZZA Fluoroscopy of Superior Vena Cava, Guidance (ICD-10-PCS; 2018-08-15)
DX: E11.622 Type 2 diabetes mellitus with other skin ulcer (principal); L97.428 Non-pressure chronic ulcer of left heel and midfoot with other specified severity; L97.918 Non-pressure chronic ulcer of unspecified part of right lower leg with other specified severity; L03.116 Cellulitis of left lower limb; M86.8X7 Other osteomyelitis, ankle and foot; E11.621 Type 2 diabetes mellitus with foot ulcer; E11.65 Type 2 diabetes mellitus with hyperglycemia; B96.5 Pseudomonas (aeruginosa) (mallei) (pseudomallei) as the cause of diseases classified elsewhere; L08.9 Local infection of the skin and subcutaneous tissue, unspecified; Z95.810 Presence of automatic (implantable) cardiac defibrillator
CPT/HCPCS: 36415; 36558; 71046-TC-FY; 77001-TC-FY; 78315-TC; 80053; 82803; 82962; 83036; 85025; 85610; 85651; 85730; 86140; 87040; 87070; 87077; 87186; 87205; 93971-TC; 99283-25; A9503; C1751; G0463-25; J1644; J7030

== ENCOUNTER 2018-08-16 09:18 | Day surgery (SDC) | payer OTHER ==
[2018-08-16] MEDS ORDERED: ERTAPENEM SODIUM 1 GM in DEXTROSE 5%-WATER - 50 ML IVPB ONE (10:00)
[2018-08-16] MEDS ORDERED: VANCOMYCIN HCL 1,250 MG in DEXTROSE 5%-WATER - 250 ML IVPB ONE (10:00)
[2018-08-16] MEDS ORDERED: ERTAPENEM SODIUM 1 GM in SODIUM CHLORIDE 50 ML IVPB ONE (10:00)
[2018-08-16 12:59] VITALS: BP 130/69; PULSE 91; TEMP 98.1
== END 2018-08-16 12:30 | disposition home or self-care (01) ==
LOC: JINFUSION 09:18 → J7W 09:25 → JINFUSION 12:30
PROVIDERS: ATTEND Internal Medicine Infectious Disease
DX: E11.621 Type 2 diabetes mellitus with foot ulcer (principal); L97.428 Non-pressure chronic ulcer of left heel and midfoot with other specified severity; L97.918 Non-pressure chronic ulcer of unspecified part of right lower leg with other specified severity; L03.116 Cellulitis of left lower limb; M86.8X7 Other osteomyelitis, ankle and foot; B96.5 Pseudomonas (aeruginosa) (mallei) (pseudomallei) as the cause of diseases classified elsewhere
CPT/HCPCS: 96365; 96366; 96367

== ENCOUNTER 2018-08-17 08:31 | Day surgery (SDC) | payer OTHER ==
[2018-08-17] MEDS ORDERED: ERTAPENEM SODIUM 1 GM in SODIUM CHLORIDE 50 ML IVPB ONE (09:30)
[2018-08-17] MEDS ORDERED: VANCOMYCIN HCL 1,250 MG in DEXTROSE 5%-WATER - 250 ML IVPB ONE (09:45)
[2018-08-17] MEDS ORDERED: VANCOMYCIN 1 GM PREMIX - 1 GM/200 ML BAG IVPB ONE (09:45)
[2018-08-17 11:43] VITALS: TEMP 98.4
[2018-08-17 12:20] VITALS: BP 141/89; PULSE 91
== END 2018-08-17 12:08 | disposition home or self-care (01) ==
LOC: JINFUSION 08:31 → J7W 08:32 → JINFUSION 12:08
PROVIDERS: ATTEND Internal Medicine Infectious Disease
DX: E11.621 Type 2 diabetes mellitus with foot ulcer (principal); L97.428 Non-pressure chronic ulcer of left heel and midfoot with other specified severity; L97.918 Non-pressure chronic ulcer of unspecified part of right lower leg with other specified severity; L03.116 Cellulitis of left lower limb; M86.8X7 Other osteomyelitis, ankle and foot; B96.5 Pseudomonas (aeruginosa) (mallei) (pseudomallei) as the cause of diseases classified elsewhere
CPT/HCPCS: 96365; 96366; 96367

== ENCOUNTER 2018-08-18 09:50 | Day surgery (SDC) | payer OTHER ==
[2018-08-18] MEDS ORDERED: ERTAPENEM SODIUM 1 GM in SODIUM CHLORIDE 50 ML IVPB ONE (10:45)
[2018-08-18] MEDS ORDERED: VANCOMYCIN HCL 1,250 MG in SODIUM CHLORIDE 250 ML IVPB ONE (10:45)
[2018-08-18 11:06] VITALS: TEMP 97.5
[2018-08-18 13:29] VITALS: BP 114/77; PULSE 99
== END 2018-08-18 13:20 | disposition home or self-care (01) ==
LOC: JINFUSION 09:50
PROVIDERS: ATTEND Internal Medicine Infectious Disease
DX: E11.621 Type 2 diabetes mellitus with foot ulcer (principal); L97.428 Non-pressure chronic ulcer of left heel and midfoot with other specified severity; L97.918 Non-pressure chronic ulcer of unspecified part of right lower leg with other specified severity; L03.116 Cellulitis of left lower limb; M86.8X7 Other osteomyelitis, ankle and foot; B96.5 Pseudomonas (aeruginosa) (mallei) (pseudomallei) as the cause of diseases classified elsewhere
CPT/HCPCS: 96365; 96366; 96367; G0480

== ENCOUNTER 2018-08-19 08:51 | Day surgery (SDC) | payer OTHER ==
[2018-08-19] MEDS ORDERED: ERTAPENEM SODIUM 1 GM in SODIUM CHLORIDE 50 ML IVPB ONE (09:00)
[2018-08-19] MEDS ORDERED: SODIUM CHLORIDE IVPB ONE (09:00)
[2018-08-19] MEDS ORDERED: VANCOMYCIN IVPB ONE (09:00)
[2018-08-19 10:05] VITALS: TEMP 98
[2018-08-19 11:49] VITALS: BP 131/70; PULSE 94
== END 2018-08-19 11:50 | disposition home or self-care (01) ==
LOC: JINFUSION 08:51
PROVIDERS: ATTEND Internal Medicine Infectious Disease
DX: E11.621 Type 2 diabetes mellitus with foot ulcer (principal); L97.428 Non-pressure chronic ulcer of left heel and midfoot with other specified severity; L97.918 Non-pressure chronic ulcer of unspecified part of right lower leg with other specified severity; L03.116 Cellulitis of left lower limb; M86.8X7 Other osteomyelitis, ankle and foot; B96.5 Pseudomonas (aeruginosa) (mallei) (pseudomallei) as the cause of diseases classified elsewhere
CPT/HCPCS: 96365; 96366; 96367

== ENCOUNTER 2018-08-20 09:06 | Day surgery (SDC) | payer OTHER ==
[~2018-08-20 09:06] MED LIST: ERTAPENEM SODIUM 1 GM in SODIUM CHLORIDE 50 ML IVPB ONE; SODIUM CHLORIDE IVPB ONE; VANCOMYCIN IVPB ONE
[2018-08-20 09:34] LABS: HEMATOCRIT 38.5 % (35.4-49); HEMOGLOBIN 12.4 GM/dL (11.7-16.9); MCH 23.3 pg (25.7-33.7); MCHC 32.3 g/dl (32.0-35.9); MEAN CELL VOLUME 72.1 fl (80-96); MEAN PLT VOLUME 7.5 fl (7.5-11.1); PLATELET COUNT 430 K/MM3 (134-434); RBC 5.34 M/mm3 (4.00-5.60); WHITE BLOOD COUNT 9.2 K/mm3 (4.0-10.0)
[2018-08-20 09:53] LABS: ANION GAP 8 MMOL/L (8-16); BLOOD UREA NITROGEN 23 mg/dL (7-18); CALCIUM 8.8 mg/dL (8.5-10.1); CHLORIDE 103 mmol/L (98-107); CO2 27 mmol/L (21-32); CREATININE 1.8 mg/dL (0.55-1.3); GLUCOSE,RANDOM 292 mg/dL (74-106); POTASSIUM 4.7 mmol/L (3.5-5.1); SODIUM 137 mmol/L (136-145)
[2018-08-20 12:14] LABS: ERYTHROCYTE SEDIMENTATION RATE 62 mm/hr (0-20)
[2018-08-20 13:20] VITALS: BP 110/70; PULSE 88; TEMP 97
== END 2018-08-20 12:32 | disposition home or self-care (01) ==
LOC: JINFUSION 09:06
PROVIDERS: ATTEND Internal Medicine Infectious Disease
DX: E11.621 Type 2 diabetes mellitus with foot ulcer (principal); L97.428 Non-pressure chronic ulcer of left heel and midfoot with other specified severity; L97.918 Non-pressure chronic ulcer of unspecified part of right lower leg with other specified severity; L03.116 Cellulitis of left lower limb; M86.8X7 Other osteomyelitis, ankle and foot; B96.5 Pseudomonas (aeruginosa) (mallei) (pseudomallei) as the cause of diseases classified elsewhere
CPT/HCPCS: 11042; 11045; 36415; 80048; 85027; 85651; 86140; 96365; 96366; 96367; 96375; G0480

== ENCOUNTER 2018-08-21 09:16 | Day surgery (SDC) | payer OTHER ==
[2018-08-21 09:58] VITALS: TEMP 97.9
[2018-08-21 12:30] VITALS: BP 106/79; PULSE 96
== END 2018-08-21 12:15 | disposition home or self-care (01) ==
LOC: JINFUSION 09:16
PROVIDERS: ATTEND Internal Medicine Infectious Disease
DX: E11.621 Type 2 diabetes mellitus with foot ulcer (principal); L97.428 Non-pressure chronic ulcer of left heel and midfoot with other specified severity; L97.918 Non-pressure chronic ulcer of unspecified part of right lower leg with other specified severity; L03.116 Cellulitis of left lower limb; M86.8X7 Other osteomyelitis, ankle and foot; B96.5 Pseudomonas (aeruginosa) (mallei) (pseudomallei) as the cause of diseases classified elsewhere
CPT/HCPCS: 96365; 96366; 96367

== ENCOUNTER 2018-08-22 08:43 | Day surgery (SDC) | payer OTHER ==
[2018-08-22] MEDS ORDERED: ERTAPENEM SODIUM 1 GM in SODIUM CHLORIDE 50 ML IVPB ONE (08:45)
[2018-08-22] MEDS ORDERED: SODIUM CHLORIDE IVPB ONE (09:00)
[2018-08-22] MEDS ORDERED: VANCOMYCIN IVPB ONE (09:00)
[2018-08-22 15:38] VITALS: TEMP 98.1
[2018-08-22 15:46] VITALS: BP 112/72; PULSE 88
== END 2018-08-22 12:35 | disposition home or self-care (01) ==
LOC: JINFUSION 08:43
PROVIDERS: ATTEND Internal Medicine Infectious Disease
DX: E11.621 Type 2 diabetes mellitus with foot ulcer (principal); L97.428 Non-pressure chronic ulcer of left heel and midfoot with other specified severity; L97.918 Non-pressure chronic ulcer of unspecified part of right lower leg with other specified severity; L03.116 Cellulitis of left lower limb; M86.8X7 Other osteomyelitis, ankle and foot; B96.5 Pseudomonas (aeruginosa) (mallei) (pseudomallei) as the cause of diseases classified elsewhere
CPT/HCPCS: 96365; 96366; 96367; G0480

== ENCOUNTER 2018-08-23 09:18 | Day surgery (SDC) | payer OTHER ==
[2018-08-23] MEDS ORDERED: VANCOMYCIN HCL 1,250 MG in SODIUM CHLORIDE 250 ML IVPB ONE (10:00)
[2018-08-23] MEDS ORDERED: ERTAPENEM SODIUM 1 GM in SODIUM CHLORIDE 50 ML IVPB ONE (10:00)
[2018-08-23] MEDS ORDERED: SODIUM CHLORIDE IVPB ONE (10:15)
[2018-08-23] MEDS ORDERED: VANCOMYCIN IVPB ONE (10:15)
[2018-08-23 10:35] VITALS: TEMP 97.9
[2018-08-23 13:53] VITALS: BP 114/60; PULSE 78
== END 2018-08-23 14:00 | disposition home or self-care (01) ==
LOC: JINFUSION 09:18 → J7W 09:19 → JINFUSION 14:00
PROVIDERS: ATTEND Internal Medicine Infectious Disease
DX: E11.621 Type 2 diabetes mellitus with foot ulcer (principal); L97.428 Non-pressure chronic ulcer of left heel and midfoot with other specified severity; L97.918 Non-pressure chronic ulcer of unspecified part of right lower leg with other specified severity; L03.116 Cellulitis of left lower limb; M86.8X7 Other osteomyelitis, ankle and foot; B96.5 Pseudomonas (aeruginosa) (mallei) (pseudomallei) as the cause of diseases classified elsewhere
CPT/HCPCS: 96365; 96366; 96367

== ENCOUNTER 2018-08-24 10:06 | Day surgery (SDC) | payer OTHER ==
[2018-08-24] MEDS ORDERED: ERTAPENEM SODIUM 1 GM in SODIUM CHLORIDE 50 ML IVPB ONE (11:00)
[2018-08-24] MEDS ORDERED: SODIUM CHLORIDE IVPB ONE (11:00)
[2018-08-24] MEDS ORDERED: VANCOMYCIN IVPB ONE (11:00)
[2018-08-24 11:29] VITALS: TEMP 97.7
[2018-08-24 13:59] VITALS: BP 108/78; PULSE 85
== END 2018-08-24 13:37 | disposition home or self-care (01) ==
LOC: JINFUSION 10:06 → J7W 10:06 → JINFUSION 13:37
PROVIDERS: ATTEND Internal Medicine Infectious Disease
DX: E11.621 Type 2 diabetes mellitus with foot ulcer (principal); L97.428 Non-pressure chronic ulcer of left heel and midfoot with other specified severity; L97.918 Non-pressure chronic ulcer of unspecified part of right lower leg with other specified severity; L03.116 Cellulitis of left lower limb; M86.8X7 Other osteomyelitis, ankle and foot; B96.5 Pseudomonas (aeruginosa) (mallei) (pseudomallei) as the cause of diseases classified elsewhere
CPT/HCPCS: 96365; 96366; 96367

== ENCOUNTER 2018-08-25 09:28 | Day surgery (SDC) | payer OTHER ==
[2018-08-25] MEDS ORDERED: ERTAPENEM SODIUM 1 GM in SODIUM CHLORIDE 50 ML IVPB ONE (10:00)
[2018-08-25] MEDS ORDERED: SODIUM CHLORIDE IVPB ONE (10:00)
[2018-08-25] MEDS ORDERED: VANCOMYCIN IVPB ONE (10:00)
[2018-08-25 11:13] VITALS: TEMP 98.2
[2018-08-25 13:00] VITALS: BP 120/62
[2018-08-25 13:29] VITALS: PULSE 83
== END 2018-08-25 13:32 | disposition home or self-care (01) ==
LOC: JINFUSION 09:28
PROVIDERS: ATTEND Internal Medicine Infectious Disease
DX: E11.621 Type 2 diabetes mellitus with foot ulcer (principal); L97.428 Non-pressure chronic ulcer of left heel and midfoot with other specified severity; L97.918 Non-pressure chronic ulcer of unspecified part of right lower leg with other specified severity; L03.116 Cellulitis of left lower limb; M86.8X7 Other osteomyelitis, ankle and foot; B96.5 Pseudomonas (aeruginosa) (mallei) (pseudomallei) as the cause of diseases classified elsewhere
CPT/HCPCS: 96365; 96366; 96367

== ENCOUNTER 2018-08-26 09:06 | Day surgery (SDC) | payer OTHER ==
[2018-08-26 10:21] VITALS: TEMP 97.8
[2018-08-26 13:09] VITALS: BP 149/91; PULSE 89
== END 2018-08-26 13:08 | disposition home or self-care (01) ==
LOC: JINFUSION 09:06
PROVIDERS: ATTEND Internal Medicine Infectious Disease
DX: E11.621 Type 2 diabetes mellitus with foot ulcer (principal); L97.428 Non-pressure chronic ulcer of left heel and midfoot with other specified severity; L03.116 Cellulitis of left lower limb; M86.8X7 Other osteomyelitis, ankle and foot; B96.5 Pseudomonas (aeruginosa) (mallei) (pseudomallei) as the cause of diseases classified elsewhere
CPT/HCPCS: 96365; 96366; 96367

== ENCOUNTER 2018-08-27 09:40 | Day surgery (SDC) | payer OTHER ==
[2018-08-27 10:08] VITALS: TEMP 98.4
[2018-08-27 10:50] LABS: HEMATOCRIT 36.8 % (35.4-49); HEMOGLOBIN 11.7 GM/dL (11.7-16.9); MCH 23.1 pg (25.7-33.7); MCHC 31.9 g/dl (32.0-35.9); MEAN CELL VOLUME 72.5 fl (80-96); MEAN PLT VOLUME 8.2 fl (7.5-11.1); PLATELET COUNT 422 K/MM3 (134-434); RBC 5.07 M/mm3 (4.00-5.60); RDW 15.4 % (11.9-15.9); WHITE BLOOD COUNT 8.7 K/mm3 (4.0-10.0)
[2018-08-27 11:16] LABS: ANION GAP 6 MMOL/L (8-16); BLOOD UREA NITROGEN 25 mg/dL (7-18); CALCIUM 9.3 mg/dL (8.5-10.1); CHLORIDE 103 mmol/L (98-107); CO2 27 mmol/L (21-32); CREATININE 2.1 mg/dL (0.55-1.3); GLUCOSE,RANDOM 240 mg/dL (74-106); SODIUM 136 mmol/L (136-145)
[2018-08-27 12:48] LABS: ERYTHROCYTE SEDIMENTATION RATE 64 mm/hr (0-20)
[2018-08-27 12:50] VITALS: BP 113/70; PULSE 72
== END 2018-08-27 13:03 | disposition home or self-care (01) ==
LOC: JINFUSION 09:40
PROVIDERS: ATTEND Internal Medicine Infectious Disease
DX: E11.621 Type 2 diabetes mellitus with foot ulcer (principal); L97.428 Non-pressure chronic ulcer of left heel and midfoot with other specified severity; L03.116 Cellulitis of left lower limb; M86.8X7 Other osteomyelitis, ankle and foot; B96.5 Pseudomonas (aeruginosa) (mallei) (pseudomallei) as the cause of diseases classified elsewhere
CPT/HCPCS: 36415; 80048; 85027; 85651; 86140; 96365; 96366; 96367; G0480

== ENCOUNTER 2018-08-28 08:54 | Day surgery (SDC) | payer OTHER ==
[~2018-08-28 08:54] MED LIST changes: -SODIUM CHLORIDE IVPB ONE; -VANCOMYCIN IVPB ONE
[2018-08-28 10:40] VITALS: TEMP 98.6
[2018-08-28 10:49] VITALS: BP 124/86; PULSE 93
== END 2018-08-28 10:20 | disposition home or self-care (01) ==
LOC: JINFUSION 08:54
PROVIDERS: ATTEND Internal Medicine Infectious Disease
DX: E11.621 Type 2 diabetes mellitus with foot ulcer (principal); L97.428 Non-pressure chronic ulcer of left heel and midfoot with other specified severity; L03.116 Cellulitis of left lower limb; M86.8X7 Other osteomyelitis, ankle and foot; B96.5 Pseudomonas (aeruginosa) (mallei) (pseudomallei) as the cause of diseases classified elsewhere
CPT/HCPCS: 96365

== ENCOUNTER 2018-08-29 09:32 | Day surgery (SDC) | payer OTHER ==
[2018-08-29 10:39] VITALS: TEMP 97.8
[2018-08-29 11:38] VITALS: BP 130/84; PULSE 84
== END 2018-08-29 11:38 | disposition home or self-care (01) ==
LOC: JINFUSION 09:32
PROVIDERS: ATTEND Internal Medicine Infectious Disease
DX: E11.621 Type 2 diabetes mellitus with foot ulcer (principal); L97.428 Non-pressure chronic ulcer of left heel and midfoot with other specified severity; L03.116 Cellulitis of left lower limb; M86.8X7 Other osteomyelitis, ankle and foot; B96.5 Pseudomonas (aeruginosa) (mallei) (pseudomallei) as the cause of diseases classified elsewhere
CPT/HCPCS: 96365

== ENCOUNTER 2018-08-30 08:28 | Day surgery (SDC) | payer OTHER ==
[2018-08-30] MEDS ORDERED: VANCOMYCIN HCL 1,250 MG in DEXTROSE 5%-WATER - 250 ML IVPB SCH (10:00)
[2018-08-30] MEDS ORDERED: VANCOMYCIN HCL 1,250 MG in SODIUM CHLORIDE 250 ML IVPB SCH (10:00)
[2018-08-30] MEDS ORDERED: ERTAPENEM SODIUM 1 GM in SODIUM CHLORIDE 50 ML IVPB SCH (10:00)
[2018-08-30 12:01] VITALS: TEMP 97.8
[2018-08-30 12:03] VITALS: BP 126/74; PULSE 77
== END 2018-08-30 12:00 | disposition home or self-care (01) ==
LOC: J7W 08:28 → JINFUSION 08:28
PROVIDERS: ATTEND Internal Medicine Infectious Disease
DX: E11.621 Type 2 diabetes mellitus with foot ulcer (principal); L97.428 Non-pressure chronic ulcer of left heel and midfoot with other specified severity; L03.116 Cellulitis of left lower limb; M86.8X7 Other osteomyelitis, ankle and foot; B96.5 Pseudomonas (aeruginosa) (mallei) (pseudomallei) as the cause of diseases classified elsewhere
CPT/HCPCS: 96365; 96366; 96367

== ENCOUNTER 2018-08-31 08:58 | Day surgery (SDC) | payer OTHER | END 2018-08-31 13:25 | disposition left against medical advice (07) | LOC: JINFUSION 08:58 → J7W 08:58 → JINFUSION 13:25 ==

== ENCOUNTER 2018-09-01 09:18 | Day surgery (SDC) | payer OTHER | END 2018-09-01 09:55 | disposition still patient (30) | LOC: JINFUSION 09:18 ==

== ENCOUNTER 2018-09-01 10:16 | Observation (INO) | payer OTHER ==
[2018-09-01 10:21] VITALS: BMI 27.0
--- NOTE | 2018-09-01 11:11 | PDOC ---
History of Present Illness - General Chief Complaint: Blood Pressure Problem Stated Complaint: Blood Pressure Problem Time Seen by Provider: 09/01/18 11:10 History Source: Patient - History of Present Illness Initial Comments: 09/01/18 11:35 The patient is a 57 year old male with a PMH of HTN, IDDM, arrthymia (s/p PPM placement in March 2018)and R foot wound (currently recieving daily IV Abx through PICC line) presents to our ED from wound clinic following two low blood pressure readings (90's/70's) at 9:30 and 9:45 this morning. Denies any active medical complaints including lightheadedness, weakness, chest pain or shortness of breath. Endorses 1 week h/o hiccups. States he last took his medications, including his Lisinopril and Toresemide yesterday morning. H/o stress testing @ [facility] last year, does not know the result. Former smoker 1/2 ppd for 15 years. Family h/o significant for cardiac disease in mother. NKDA PMD: in [facility]: @ [facility] Past History - Past Medical History Allergies/Adverse Reactions: Allergies Allergy/AdvReac Type Severity Reaction Status Date / Time No Known Allergies Allergy Verified 09/01/18 10:17 Home Medications: Ambulatory Orders Ertapenem Sodium [Invanz -] 1 gm IVPB DAILY #30 vial 08/15/18 Vancomycin HCl 1,250 mg IVPB Q24H #30 vial 08/15/18 Insulin Lispro [Humalog] 20 unit SQ TID 08/18/18 Lisinopril [Zestril] 40 mg PO DAILY 08/18/18 Torsemide 20 mg PO DAILY 08/18/18 Aspirin Coated [Ecotrin -] 81 mg PO DAILY 09/01/18 Cardiac Disorders: Yes (PPM/DEFIBRILLATOR) COPD: No CHF: Yes Diabetes: Yes HTN: Yes Hypercholesterolemia: Yes - Surgical History Cardiac Surgery: Yes (poacemaker/defibrillator) - Immunization History Immunization Up to Date: Yes - Suicide/Smoking/Psychosocial Hx Smoking History: Former smoker Have you smoked in the past 12 months: No Information on smoking cessation initiated: No Hx Alcohol Use: No Drug/Substance Use Hx: No Review of Systems - Review of Systems Constitutional: No: Chills, Fever HEENTM: No: Recent change in vision Respiratory: No: Cough, Shortness of Breath, Wheezing, Hemoptysis Cardiac (ROS): No: Irregular Heart Rate, Lightheadedness, Palpitations, Syncope ABD/GI: No: Constipated, Diarrhea, Nausea, Vomiting : No: Burning, Dysuria *Physical Exam - Vital Signs Last Vital Signs Temp Pulse Resp BP Pulse Ox 97.8 F 99 H 19 106/78 100 09/01/18 10:18 09/01/18 10:18 09/01/18 10:18 09/01/18 10:18 09/01/18 10:18 - Physical Exam General Appearance: Yes: Nourished, Appropriately Dressed HEENT: positive: Normal Voice, Hearing Grossly Normal Neck: positive: Trachea midline, Supple Respiratory/Chest: positive: Lungs Clear, Normal Breath Sounds. negative: Crackles, Wheezing Cardiovascular: positive: S1, S2. negative: Edema, JVD Gastrointestinal/Abdominal: positive: Normal Bowel Sounds, Soft Musculoskeletal: negative: CVA Tenderness (R), CVA Tenderness (L) Extremity: positive: Normal Capillary Refill, Normal Inspection Integumentary: positive: Normal Color, Dry, Warm Neurologic: positive: emergency medicine medical director II-XII NML intact, Fully Oriented, Alert Heart Score/ECG Review - ECG Impressions Comment:: 09/01/18 13:01 NSR, HR 92 normal intervals, no deviations, RBB, no JD/STD/TWI ED Treatment Course - LABORATORY CBC & Chemistry Diagram: 09/01/18 13:34 09/01/18 13:34 Medical Decision Making - Medical Decision Making 09/01/18 11:35 57 year old male w/isolated episodes of hypotension. Multiple cardiac RF including smoking, IDDM. Hiccups as anginal equivalent? BP stable @ presentation 115/86. Will obtain EKG, Troponin, CBC/CMP, CXR. Likely disposition is admission 09/01/18 13:01 EKG as documented in EMR - no acute ischemia 09/01/18 13:07 Repeat BP 124/98 Patient remains asymptomatic 09/01/18 13:25 Troponin 0.09 - ? ischemic deand CBC, CMP, Mg pending Cardiac monitoring Heart Score 4 Patient requires admission for further cardiac evaluation 09/01/18 14:17 Dr. Bruce @ bedside Case d/w Dr. Reynolds, accepts for tele obs admisison; requests Dr. Haji cardiolgy 09/01/18 14:20 Patient counseled on plan of care; amenable to admission 09/01/18 16:30 Patient's worsening Cr (1.6 --> 2.4) over the last 1 month suggestive of ischemic demand 2/2 to worsening renal function Clinical Impression: Elevated Troponin 2/2 Ischemic Demand vs. possible NSTEMI *DC/Admit/Observation/Transfer Diagnosis at time of Disposition: Elevated troponin - Discharge Dispostion Condition at time of disposition: Fair Decision to Admit order: No - Referrals - Patient Instructions - Post Discharge Activity
[2018-09-01 13:41] LABS: BASO % 1.3 % (0-2.0); EOS % 12.9 % (0-4.5); HEMATOCRIT 38.6 % (35.4-49); HEMOGLOBIN 12.4 GM/dL (11.7-16.9); LYMPH % 17.2 % (8-40); MCH 23.1 pg (25.7-33.7); MCHC 32.1 g/dl (32.0-35.9); MEAN CELL VOLUME 72.1 fl (80-96); MEAN PLT VOLUME 7.5 fl (7.5-11.1); MONO % 10.1 % (3.8-10.2); NEUT % 58.5 % (42.8-82.8); PLATELET COUNT 425 K/MM3 (134-434); RBC 5.36 M/mm3 (4.00-5.60); RDW 15.2 % (11.9-15.9); WHITE BLOOD COUNT 9.1 K/mm3 (4.0-10.0)
[2018-09-01 14:04] LABS: INR 1.07 (0.83-1.09); PROTHROMBIN TIME (PATIENT) 12.6 SEC (9.7-13.0)
[2018-09-01 14:06] LABS: ACTIVATED PTT 41.3 SECONDS (25.2-36.5)
[2018-09-01 14:10] LABS: ALBUMIN 3.4 g/dl (3.4-5.0); ALK PHOS 146 U/L (45-117); ANION GAP 8 MMOL/L (8-16); BILIRUBIN,TOTAL 0.4 mg/dL (0.2-1); BLOOD UREA NITROGEN 35 mg/dL (7-18); CALCIUM 9.5 mg/dL (8.5-10.1); CHLORIDE 101 mmol/L (98-107); CO2 28 mmol/L (21-32); CREATININE 2.4 mg/dL (0.55-1.3); GLUCOSE,RANDOM 281 mg/dL (74-106); MAGNESIUM 2.5 mg/dL (1.8-2.4); POTASSIUM 4.8 mmol/L (3.5-5.1); SGOT/AST 14 U/L (15-37); SGPT/ALT 16 U/L (13-61); SODIUM 137 mmol/L (136-145); TOT PROT 7.9 g/dl (6.4-8.2)
--- NOTE | 2018-09-01 14:16 | EKG ---
Test Reason : Blood Pressure : / mmHG Vent. Rate : 092 BPM Atrial Rate : 092 BPM P-R Int : 156 ms QRS Dur : 132 ms QT Int : 372 ms P-R-T Axes : 060 034 034 degrees QTc Int : 460 ms NORMAL SINUS RHYTHM RIGHT BUNDLE BRANCH BLOCK ABNORMAL ECG WHEN COMPARED WITH ECG OF 03-APR-2005 09:16, RIGHT BUNDLE BRANCH BLOCK HAS REPLACED INCOMPLETE RIGHT BUNDLE BRANCH BLOCK Confirmed by GALE VINCENT MD ([id number]) on 09/01/2018 2:16:25 PM Referred By: Confirmed By:GALE VINCENT MD
--- NOTE | 2018-09-01 14:42 | PDOC ---
Documentation entered by Nori Carrillo SCRIBE, acting as scribe for Ellen Galicia MD. Ellen Galicia MD: This documentation has been prepared by the Gerardo garcia Sammi, SCRIBE, under my direction and personally reviewed by me in its entirety. I confirm that the documentation accurately reflects all work, treatment, procedures, and medical decision making performed by me. Attending Attestation - Resident Resident Name: Airam Armendariz - ED Attending Attestation I have performed the following: I have examined & evaluated the patient, The case was reviewed & discussed with the resident, I agree w/resident's findings & plan, Exceptions are as noted - HPI HPI: 09/01/18 13:20 The patient is a 57 year old male, with a significant PMH of HTN, IDDM, and right foot wound, who presents from infusion center to the emergency department for evaluation of low blood pressure (90/70) in bilateral arms, earlier this morning. Patient states he last took his BP medication yesterday afternoon, as he takes all his medications in the afternoon. Patient denies changes in medication or daily living. Denies any complaints at this time. Per staff at daily infusion center, pt's BP's are usually higher prompting them to send pt down. The patient denies chest pain, shortness of breath, headache and dizziness. Denies fever, chills, nausea, vomit, diarrhea and constipation. Denies dysuria, frequency, urgency and hematuria. Allergies: NKA - Physicial Exam PE: 09/01/18 14:34 agree with resident exam - Medical Decision Making 09/01/18 14:35 57yo M hx HTN, DM, on abx daily for diabetic food wound presents to the ED for hypotension, otherwise asymptomatic In the ED, he is borderline hypotensive to 106/78, otherwise normal vitals Exam wnl Labs remarkable for elevated creatinine 2.4, up from 2 Troponin leak 0.06, possible demand? EKG non ischemic Plan to observe pt, admit for rpt trops Case discussed with Dr. Reynolds, accepted for admission. Heart Score/ECG Review #1 09/01/18 14:33 Twelve-lead EKG was performed and reviewed by me. Normal sinus rhythm, rate 92. Normal axis. Right bundle branch block. No ST elevations.
--- NOTE | 2018-09-01 16:31 | HP ---
Admitting History and Physical - Primary Care Physician PCP: Tyshawn Reynolds - Admission History of Present Illness: 57 year old male with a PMH of HTN, IDDM, arrthymia (s/p PPM placement in March 2018)and R foot wound (currently recieving daily IV Abx through PICC line) presents to our ED from wound clinic following two low blood pressure readings (90's/70's) at 9:30 and 9:45 this morning. Denies any active medical complaints including lightheadedness, weakness, chest pain or shortness of breath. Endorses 1 week h/o hiccups. States he last took his medications, including his Lisinopril and Toresemide yesterday morning. H/o stress testing @ [facility] last year, does not know the result. Former smoker 1/2 ppd for 15 years. Family h/o significant for cardiac disease in mother. - Past Medical History Endocrine: Yes: Diabetes Mellitus - Smoking History Smoking history: Former smoker Have you smoked in the past 12 months: No - Alcohol/Substance Use Hx Alcohol Use: No Home Medications - Allergies Allergies/Adverse Reactions: Allergies Allergy/AdvReac Type Severity Reaction Status Date / Time No Known Allergies Allergy Verified 09/01/18 10:17 - Home Medications Home Medications: Ambulatory Orders Ertapenem Sodium [Invanz -] 1 gm IVPB DAILY #30 vial 08/15/18 Vancomycin HCl 1,250 mg IVPB Q24H #30 vial 08/15/18 Insulin Lispro [Humalog] 20 unit SQ TID 08/18/18 Lisinopril [Zestril] 40 mg PO DAILY 08/18/18 Torsemide 20 mg PO DAILY 08/18/18 Aspirin Coated [Ecotrin -] 81 mg PO DAILY 09/01/18 Physical Examination Vital Signs: Vital Signs Temperature 97.8 F 09/01/18 10:18 Pulse Rate 99 H 09/01/18 10:21 Respiratory Rate 09/01/18 10:21 Blood Pressure 106/78 09/01/18 10:18 O2 Sat by Pulse Oximetry (%) 100 09/01/18 10:21 Constitutional: Yes: No Distress HENT: Yes: Atraumatic Neck: Yes: Supple Cardiovascular: Yes: Regular Rate and Rhythm Respiratory: Yes: CTA Bilaterally Gastrointestinal: Yes: Normal Bowel Sounds Extremities: Yes: WNL Neurological: Yes: Alert, Oriented Labs: CBC, BMP 09/01/18 13:34 09/01/18 13:34 Imaging - Results X-ray: Report Reviewed Problem List - Problems (1) Diabetes Assessment/Plan: continue homemeds bgwi Code(s): E11.9 - TYPE 2 DIABETES MELLITUS WITHOUT COMPLICATIONS (2) Wound infection Assessment/Plan: iv abx per id Code(s): T14.8XXA - OTHER INJURY OF UNSPECIFIED BODY REGION, INITIAL ENCOUNTER; L08.9 - LOCAL INFECTION OF THE SKIN AND SUBCUTANEOUS TISSUE, UNSP Assessment/Plan Laboratory Tests 09/01/18 09/01/18 09/01/18 12:10 13:34 13:34 WBC 9.1 RBC 5.36 Hgb 12.4 Hct 38.6 MCV 72.1 L MCH 23.1 L MCHC 32.1 RDW 15.2 Plt Count 425 MPV 7.5 Absolute Neuts (auto) 5.3 Neutrophils % 58.5 Lymphocytes % 17.2 D Monocytes % 10.1 Eosinophils % 12.9 H Basophils % 1.3 Nucleated RBC % 0 PT with INR INR PTT (Actin FS) Sodium 137 Potassium 4.8 Chloride 101 Carbon Dioxide 28 Anion Gap 8 BUN 35 H Creatinine 2.4 H Creat Clearance w eGFR 28.25 Random Glucose 281 H Calcium 9.5 Magnesium 2.5 H Total Bilirubin 0.4 AST 14 L ALT 16 Alkaline Phosphatase 146 H Creatine Kinase 30 Troponin I 0.06 H Total Protein 7.9 Albumin 3.4 09/01/18 13:40 WBC RBC Hgb Hct MCV MCH MCHC RDW Plt Count MPV Absolute Neuts (auto) Neutrophils % Lymphocytes % Monocytes % Eosinophils % Basophils % Nucleated RBC % PT with INR 12.60 INR 1.07 PTT (Actin FS) 41.3 H Sodium Potassium Chloride Carbon Dioxide Anion Gap BUN Creatinine Creat Clearance w eGFR Random Glucose Calcium Magnesium Total Bilirubin AST ALT Alkaline Phosphatase Creatine Kinase Troponin I Total Protein Albumin
--- NOTE | 2018-09-01 22:14 | CON.ID ---
Consult - Alcohol/Substance Use Hx Alcohol Use: No - Smoking History Smoking history: Former smoker Have you smoked in the past 12 months: No Home Medications - Allergies Allergies/Adverse Reactions: Allergies Allergy/AdvReac Type Severity Reaction Status Date / Time No Known Allergies Allergy Verified 09/01/18 10:17 - Home Medications Home Medications: Ambulatory Orders RX: Ertapenem Sodium [Invanz -] 1 gm IVPB DAILY #30 vial 08/15/18 RX: Vancomycin HCl 1,250 mg IVPB Q24H #30 vial 08/15/18 Insulin Lispro [Humalog] 20 unit SQ TID 08/18/18 Lisinopril [Zestril] 40 mg PO DAILY 08/18/18 RX: Torsemide 20 mg PO DAILY 08/18/18 Aspirin Coated [Ecotrin -] 81 mg PO DAILY 09/01/18 Physical Exam Vital Signs: Vital Signs Temperature 97.8 F 09/01/18 10:18 Pulse Rate 105 H 09/01/18 18:21 Respiratory Rate 18 09/01/18 16:35 Blood Pressure 131/77 09/01/18 18:21 O2 Sat by Pulse Oximetry (%) 97 09/01/18 16:35 Labs: CBC, BMP 09/01/18 13:34 09/01/18 13:34
[2018-09-01] MEDS: HEPARIN NA (PORCINE) 5,000 UNITS/ML 1ML VIAL SQ SCH (23:00)
[2018-09-01] MEDS ORDERED: INSULIN (NOVOLOG) ASPART 100 UNITS/ML 10ML VIAL ONE (23:40)
[2018-09-01] MEDS ORDERED: HEPARIN NA (PORCINE) 5,000 UNITS/ML 1ML VIAL ONE (23:40)
[2018-09-01] MEDS: INSULIN SLIDING SCALE (NOVOLOG) 1 VIAL SQ SCH (23:48)
[2018-09-02] MEDS: INSULIN SLIDING SCALE (NOVOLOG) 1 VIAL SQ SCH (06:25)
[2018-09-02 08:02] LABS: BASO % 0.6 % (0-2.0); EOS % 13.6 % (0-4.5); HEMATOCRIT 35.1 % (35.4-49); HEMOGLOBIN 11.4 GM/dL (11.7-16.9); LYMPH % 9.7 % (8-40); MCH 23.2 pg (25.7-33.7); MCHC 32.5 g/dl (32.0-35.9); MEAN CELL VOLUME 71.3 fl (80-96); MEAN PLT VOLUME 7.4 fl (7.5-11.1); MONO % 9.7 % (3.8-10.2); NEUT % 66.4 % (42.8-82.8); PLATELET COUNT 393 K/MM3 (134-434); RBC 4.92 M/mm3 (4.00-5.60); WHITE BLOOD COUNT 7.5 K/mm3 (4.0-10.0)
[2018-09-02 08:31] VITALS: BP 132/97; PULSE 107; TEMP 97.5
[2018-09-02 08:32] LABS: ALBUMIN 2.8 g/dl (3.4-5.0); ALK PHOS 127 U/L (45-117); ANION GAP 7 MMOL/L (8-16); BILIRUBIN,TOTAL 0.5 mg/dL (0.2-1); BLOOD UREA NITROGEN 31 mg/dL (7-18); CHLORIDE 103 mmol/L (98-107); CO2 25 mmol/L (21-32); CREATININE 1.8 mg/dL (0.55-1.3); GLUCOSE,RANDOM 204 mg/dL (74-106); POTASSIUM 4.7 mmol/L (3.5-5.1); SGOT/AST 10 U/L (15-37); SGPT/ALT 15 U/L (13-61); SODIUM 134 mmol/L (136-145); TOT PROT 6.8 g/dl (6.4-8.2)
[2018-09-02] MEDS: HEPARIN NA (PORCINE) 5,000 UNITS/ML 1ML VIAL SQ SCH (09:13)
[2018-09-02] MEDS ORDERED: FLU VACCINE QUAD 60 MCG/0.5 ML (MDV 18-19) IM ONE (10:00)
[2018-09-02] MEDS ORDERED: LISINOPRIL 20 MG TABLET (FP) PO SCH (10:00)
[2018-09-02] MEDS ORDERED: PNEUMOC 13-VAL CONJ-DIP CRM/PF 0.5 ML DISP.SYRIN IM ONE (10:00)
[2018-09-02] MEDS ORDERED: PATIENT'S OWN MEDICATION (NON-FORMULARY) (Lisinopril [Zestril] 40 MG) PO SCH (10:00)
[2018-09-02] MEDS ORDERED: TORSEMIDE 20 MG TABLET (FP) PO SCH (10:00)
--- NOTE | 2018-09-02 17:34 | DS ---
Physical Examination Vital Signs: Vital Signs Temperature 97.5 F L 09/02/18 08:30 Pulse Rate 107 H 09/02/18 08:30 Respiratory Rate 20 09/02/18 08:30 Blood Pressure 132/97 09/02/18 08:30 O2 Sat by Pulse Oximetry (%) 99 09/01/18 23:51 Labs: CBC, BMP 09/02/18 07:08 09/02/18 07:08 Discharge Summary Reason For Visit: ELEVATED TROPONIN LEVEL Condition: Fair - Instructions Disposition: AGAINST MEDICAL ADVICE - Home Medications Comprehensive Discharge Medication List: Ambulatory Orders Ertapenem Sodium [Invanz -] 1 gm IVPB DAILY #30 vial 08/15/18 Vancomycin HCl 1,250 mg IVPB Q24H #30 vial 08/15/18 Insulin Lispro [Humalog] 20 unit SQ TID 08/18/18 Lisinopril [Zestril] 40 mg PO DAILY 08/18/18 Torsemide 20 mg PO DAILY 08/18/18 Aspirin Coated [Ecotrin -] 81 mg PO DAILY 09/01/18 ama
== END 2018-09-02 09:40 | disposition left against medical advice (07) ==
LOC: JER 10:16 → JERBED 14:17 → J4W 09-02 01:30
PROVIDERS: ADMIT Internal Medicine; ATTEND Internal Medicine
PROC: 3E013VG Introduction of Insulin into Subcutaneous Tissue, Percutaneous Approach (ICD-10-PCS; principal; 2018-09-01)
DX: R77.8 Other specified abnormalities of plasma proteins (principal); E11.621 Type 2 diabetes mellitus with foot ulcer; L97.428 Non-pressure chronic ulcer of left heel and midfoot with other specified severity; I11.0 Hypertensive heart disease with heart failure; E78.5 Hyperlipidemia, unspecified; I49.9 Cardiac arrhythmia, unspecified; I50.9 Heart failure, unspecified; F17.210 Nicotine dependence, cigarettes, uncomplicated; Z95.810 Presence of automatic (implantable) cardiac defibrillator; Z79.4 Long term (current) use of insulin; Z79.82 Long term (current) use of aspirin
CPT/HCPCS: 36415; 71045-TC-FY; 80053; 82550; 82962; 83735; 84484; 85025; 85610; 85730; 93005; 93010; 96372; 99285-25; G0378; J1644

== ENCOUNTER → 2018-09-02 | Day surgery (SDC) | payer OTHER ==
[2018-09-02 11:08] VITALS: BP 131/79; PULSE 117
== END | disposition home or self-care (01) ==
LOC: JRADIR 09:33 → JINFUSION 09:33
PROVIDERS: ATTEND Internal Medicine Infectious Disease
PROC: 0JPT0XZ Removal of Tunneled Vascular Access Device from Trunk Subcutaneous Tissue and Fascia, Open Approach (ICD-10-PCS; principal; 2018-09-02)
DX: Z45.2 Encounter for adjustment and management of vascular access device (principal)
CPT/HCPCS: 36589

== ENCOUNTER 2018-09-11 11:46 | Inpatient (IN) | payer OTHER ==
[2018-09-11] MEDS ORDERED: SODIUM CHLORIDE 2,381 ML IV ONE (12:39)
--- NOTE | 2018-09-11 12:39 | PDOC ---
History of Present Illness - General Chief Complaint: PICC Line Insertion Stated Complaint: PICC LINE Time Seen by Provider: 09/11/18 12:30 History Source: Patient Exam Limitations: No Limitations - History of Present Illness Initial Comments: 09/11/18 12:45 57 yo M with a hx of HTN, IDDM, arrythmia (pacemaker placement Mar 2018), and hx of IVabx for chronic wound infection (pt states using meropenem and vancomycin from August 03 to September 02 that was removed due to picc line clogged) presents to the emergency department from [facility] for admission for IVabx due to persistence of drainage and wounds. Per the patient, he feels well save for a hives like rash that broke out 2 days ago originating from the right thigh throughout the body with pruritis. Denies use of new detergents, new environmental exposures, and new medications. The patient states he left AMA from his recent admission (discharged 09/02/2018) due to a desire to be treated by his PMD (Dr. Santiago). He denies the following: fever, chills, nausea, vomiting, visual disturbances, chest pain, SOB, ear/nose/mouth pain, abdominal pain, dysuria, hematuria, diarrhea, constipation, leg pain/ swelling, and hematochezia. Endorses decreased urinary output. Meds: lisinopril, torosimide, and lisinopril Allergies: NKDA Social: Denies tobacco, alcohol, and substance abuse. Past History - Past Medical History Allergies/Adverse Reactions: Allergies Allergy/AdvReac Type Severity Reaction Status Date / Time No Known Allergies Allergy Verified 09/11/18 13:53 Home Medications: Ambulatory Orders Lisinopril [Zestril] 40 mg PO DAILY 08/18/18 Torsemide 20 mg PO DAILY 08/18/18 Aspirin Coated [Ecotrin -] 81 mg PO DAILY 09/01/18 Cardiac Disorders: Yes (PPM/DEFIBRILLATOR) COPD: No CHF: Yes Diabetes: Yes HTN: Yes Hypercholesterolemia: Yes - Surgical History Cardiac Surgery: Yes (poacemaker/defibrillator) - Immunization History Immunization Up to Date: Yes - Suicide/Smoking/Psychosocial Hx Smoking History: Unknown if ever smoked Have you smoked in the past 12 months: Yes Information on smoking cessation initiated: No Hx Alcohol Use: No Drug/Substance Use Hx: No Hx Substance Use Treatment: No Review of Systems - Review of Systems Able to Perform ROS?: Yes Is the patient limited German proficient: No Constitutional: No: Chills, Diaphoresis, Fever HEENTM: No: Eye Pain, Recent change in vision, Ear Pain, Nose Pain, Throat Pain Respiratory: No: Cough, Shortness of Breath, SOB with Exertion Cardiac (ROS): No: Chest Pain, Lightheadedness, Palpitations, Syncope, Chest Tightness ABD/GI: No: Constipated, Diarrhea, Nausea, Poor Appetite, Poor Fluid Intake, Rectal Bleeding, Vomiting, Tarry Stools : No: Burning, Dysuria, Hematuria, Incontinence Musculoskeletal: No: Back Pain, Joint Pain, Neck Pain Integumentary: Yes: Pruritus, Rash. No: Bruising, Erythema Neurological: No: Headache, Numbness, Tingling, Tremors, Dizziness Psychiatric: No: Stressors, Change in Appetite Endocrine: No: Unexplained Weight Gain Hematologic/Lymphatic: No: Anemia *Physical Exam - Vital Signs Last Vital Signs Temp Pulse Resp BP Pulse Ox 98.3 F 98 H 16 98/63 100 09/11/18 11:52 09/11/18 11:52 09/11/18 11:52 09/11/18 11:52 09/11/18 11:52 - Physical Exam General Appearance: Yes: Nourished, Appropriately Dressed. No: Apparent Distress, Intoxicated HEENT: positive: EOMI, HIRA, Normal Voice, Symmetrical, Pharynx Normal, Hearing Grossly Normal. negative: Pale Conjunctivae, Scleral Icterus (R), Scleral Icterus (L), Muffled/Hoarse voice, Pharyngeal Erythema, Tonsillar Exudate, Tonsillar Erythema, Excessive drooling Neck: positive: Trachea midline, Supple. negative: Tender, Lymphadenopathy (R) , Lymphadenopathy (L), Tender lateral, Tender midline Respiratory/Chest: positive: Lungs Clear, Normal Breath Sounds. negative: Chest Tender, Respiratory Distress, Accessory Muscle Use Cardiovascular: positive: Regular Rhythm, Regular Rate, S1, S2. negative: Systolic Murmur Gastrointestinal/Abdominal: positive: Normal Bowel Sounds, Flat, Soft. negative : Tender, Distended, Guarding, Rebound Lymphatic: negative: Adenopathy Musculoskeletal: positive: Normal Inspection. negative: CVA Tenderness, Vertebral Tenderness Extremity: positive: Normal Capillary Refill, Normal Range of Motion, Other ( right lateral at 5th metatarsal punctate wound with pus drainage without surrounding erythema. left lateral ankle superior to lateral malleolus with surrounding erythema without pus drainage. no red streaks bilaterally. ). negative: Normal Inspection, Tender Integumentary: positive: Normal Color, Dry, Warm, Hives (throughout body), Other (scab right chest where picc line was taken out) Neurologic: positive: bander II-XII NML intact, Fully Oriented, Alert, Normal Mood/ Affect, Normal Response, Motor Strength 09/14 ED Treatment Course - LABORATORY CBC & Chemistry Diagram: 09/13/18 06:45 09/14/18 07:12 Medical Decision Making - Medical Decision Making 09/11/18 12:58 57 yo M with a hx of HTN, IDDM, arrythmia (pacemaker placement Mar 2018), and hx of IVabx for chronic wound infection (pt states using meropenem and vancomycin from August 03 to September 02 that was removed due to picc line clogged) presents to the emergency department from [facility] for admission for IVabx due to persistence of drainage and wounds. Initial vitals; Initial Vital Signs Temp Pulse Resp BP Pulse Ox 98.3 F 98 H 16 98/63 100 09/11/18 11:52 09/11/18 11:52 09/11/18 11:52 09/11/18 11:52 09/11/18 11:52 Work up: Patient presents to the emergency department with a rash consistent with hives to be admitted for IVabx. Ddx for hives: patient did not start new medications and no new environmental exposures however he did have an STEPHANIE during last admission possibly hives due to uremia. ddx for wound infections; patient has borderline hypotension and tachycardia afebrile orally. will do septic workup due to concerns stemming from failure to complete abx course and recent hospital admission. septic order set will be ordered along with the additionals : foot xray right, ankle foot on left, esr, crp. Interventions: 30 cc/kg NS 0.9% and diphenhydramine 25 mg Laboratory Tests 09/11/18 09/11/18 09/11/18 13:23 13:23 13:23 WBC 8.3 RBC 5.21 Hgb 11.7 Hct 37.1 MCV 71.1 L MCH 22.4 L MCHC 31.5 L RDW 14.8 Plt Count 480 H D MPV 7.6 Absolute Neuts (auto) 4.5 Neutrophils % 54.3 Neutrophils % (Manual) 59.4 Band Neutrophils % 0.0 Lymphocytes % 13.9 D Lymphocytes % (Manual) 11.9 Monocytes % 9.4 Monocytes % (Manual) 8 Eosinophils % 20.4 H* Eosinophils % (Manual) 18.8 H Basophils % 2.0 D Basophils % (Manual) 1.0 Myelocytes % (Man) 0 Promyelocytes % (Man) 0 Blast Cells % (Manual) 0 Nucleated RBC % 0 Metamyelocytes 0 Hypochromia 1+ Platelet Estimate Normal Polychromasia 0 Poikilocytosis 0 Anisocytosis 1+ Microcytosis 1+ Macrocytosis 0 ESR PT with INR 12.90 INR 1.09 PTT (Actin FS) 36.8 H Sodium 135 L Potassium 5.8 H Chloride 104 Carbon Dioxide 24 Anion Gap 7 L BUN 42 H Creatinine 2.3 H Creat Clearance w eGFR 29.67 Random Glucose 282 H Lactic Acid Calcium 9.2 Total Bilirubin 0.3 AST 9 L ALT 16 Alkaline Phosphatase 120 H Creatine Kinase 45 Troponin I 0.04 C-Reactive Protein Total Protein 7.4 Albumin 3.2 L Urine Color Urine Appearance Urine pH Ur Specific [place] Urine Protein Urine Glucose (UA) Urine Ketones Urine Blood Urine Nitrite Urine Bilirubin Urine Urobilinogen Ur Leukocyte Esterase 09/11/18 09/11/18 09/11/18 13:23 13:23 13:49 WBC RBC Hgb Hct MCV MCH MCHC RDW Plt Count MPV Absolute Neuts (auto) Neutrophils % Neutrophils % (Manual) Band Neutrophils % Lymphocytes % Lymphocytes % (Manual) Monocytes % Monocytes % (Manual) Eosinophils % Eosinophils % (Manual) Basophils % Basophils % (Manual) Myelocytes % (Man) Promyelocytes % (Man) Blast Cells % (Manual) Nucleated RBC % Metamyelocytes Hypochromia Platelet Estimate Polychromasia Poikilocytosis Anisocytosis Microcytosis Macrocytosis ESR 62 H PT with INR INR PTT (Actin FS) Sodium Potassium Chloride Carbon Dioxide Anion Gap BUN Creatinine Creat Clearance w eGFR Random Glucose Lactic Acid 2.1 H Calcium Total Bilirubin AST ALT Alkaline Phosphatase Creatine Kinase Troponin I C-Reactive Protein 3.4 H Total Protein Albumin Urine Color Urine Appearance Urine pH Ur Specific [place] Urine Protein Urine Glucose (UA) Urine Ketones Urine Blood Urine Nitrite Urine Bilirubin Urine Urobilinogen Ur Leukocyte Esterase 09/11/18 09/11/18 14:40 16:50 WBC RBC Hgb Hct MCV MCH MCHC RDW Plt Count MPV Absolute Neuts (auto) Neutrophils % Neutrophils % (Manual) Band Neutrophils % Lymphocytes % Lymphocytes % (Manual) Monocytes % Monocytes % (Manual) Eosinophils % Eosinophils % (Manual) Basophils % Basophils % (Manual) Myelocytes % (Man) Promyelocytes % (Man) Blast Cells % (Manual) Nucleated RBC % Metamyelocytes Hypochromia Platelet Estimate Polychromasia Poikilocytosis Anisocytosis Microcytosis Macrocytosis ESR PT with INR INR PTT (Actin FS) Sodium Potassium Chloride Carbon Dioxide Anion Gap BUN Creatinine Creat Clearance w eGFR Random Glucose Lactic Acid 2.2 H* Calcium Total Bilirubin AST ALT Alkaline Phosphatase Creatine Kinase Troponin I C-Reactive Protein Total Protein Albumin Urine Color Yellow Urine Appearance Clear Urine pH 5.5 Ur Specific [place] 1.021 Urine Protein Negative Urine Glucose (UA) 3+ H Urine Ketones Negative Urine Blood Negative Urine Nitrite Negative Urine Bilirubin Negative Urine Urobilinogen 0.2 Ur Leukocyte Esterase Negative elevation in lactic acid, CRP, ESR, eosinophils. no rise in troponin. patient has an STEPHANIE. Patient is to be admitted by Dr. Reynolds for IVabx with early presentation of sepsis. Patient was accepted for admission. Dispo: Admission *DC/Admit/Observation/Transfer Diagnosis at time of Disposition: Wound infection Diabetes Qualifiers: Diabetes mellitus type: other specified (including RANDA) Diabetes mellitus [facility] insulin use: unspecified [facility] insulin use status Diabetes mellitus complication status: with unspecified complications Qualified Code(s): E13.8 - Other specified diabetes mellitus with unspecified complications - Discharge Dispostion Condition at time of disposition: Stable - Referrals - Patient Instructions - Post Discharge Activity
[2018-09-11] MEDS ORDERED: diphenhydrAMINE HCL 12.5 MG/5 ML UNIT-DOSE CUPS PO ONE (13:08)
[2018-09-11] MEDS ORDERED: ERTAPENEM SODIUM 1 GM in SODIUM CHLORIDE 50 ML IVPB ONE (13:26)
[2018-09-11] MEDS ORDERED: VANCOMYCIN 1 GM in D5W (PRE-DOCKED) 1,000 MG/250 ML IVPB ONE (13:26)
[2018-09-11] MEDS ORDERED: diphenhydrAMINE HCL 25 MG CAPSULE (FP) PO ONE ×2 (13:39→16:15)
[2018-09-11 13:40] LABS: EOS % 20.4 % (0-4.5); HEMATOCRIT 37.1 % (35.4-49); HEMOGLOBIN 11.7 GM/dL (11.7-16.9); LYMPH % 13.9 % (8-40); MCH 22.4 pg (25.7-33.7); MCHC 31.5 g/dl (32.0-35.9); MEAN CELL VOLUME 71.1 fl (80-96); MEAN PLT VOLUME 7.6 fl (7.5-11.1); MONO % 9.4 % (3.8-10.2); NEUT % 54.3 % (42.8-82.8); PLATELET COUNT 480 K/MM3 (134-434); RBC 5.21 M/mm3 (4.00-5.60); RDW 14.8 % (11.9-15.9); WHITE BLOOD COUNT 8.3 K/mm3 (4.0-10.0)
[2018-09-11] MEDS ORDERED: ERTAPENEM SODIUM 1 GM VIAL ONE (13:43)
[2018-09-11] MEDS ORDERED: VANCOMYCIN 1 GRAM (PRE-DOCKED) 1,000 MG/250 ML BAG IVPB ONE (13:43)
[2018-09-11 13:58] LABS: INR 1.09 (0.83-1.09); PROTHROMBIN TIME (PATIENT) 12.9 SEC (9.7-13.0)
[2018-09-11 14:01] LABS: ACTIVATED PTT 36.8 SECONDS (25.2-36.5)
[2018-09-11 14:19] LABS: ALBUMIN 3.2 g/dl (3.4-5.0); ALK PHOS 120 U/L (45-117); ANION GAP 7 MMOL/L (8-16); BILIRUBIN,TOTAL 0.3 mg/dL (0.2-1); BLOOD UREA NITROGEN 42 mg/dL (7-18); CALCIUM 9.2 mg/dL (8.5-10.1); CHLORIDE 104 mmol/L (98-107); CO2 24 mmol/L (21-32); CREATININE 2.3 mg/dL (0.55-1.3); GLUCOSE,RANDOM 282 mg/dL (74-106); POTASSIUM 5.8 mmol/L (3.5-5.1); SGOT/AST 9 U/L (15-37); SGPT/ALT 16 U/L (13-61); SODIUM 135 mmol/L (136-145); TOT PROT 7.4 g/dl (6.4-8.2)
--- NOTE | 2018-09-11 14:23 | PDOC ---
Documentation entered by Bogdan Santana SCRIBE, acting as scribe for Howard Llanes MD. Howard Llanes MD: This documentation has been prepared by the Max garcia Nirvannie, SCRIBE, under my direction and personally reviewed by me in its entirety. I confirm that the documentation accurately reflects all work, treatment, procedures, and medical decision making performed by me. Attending Attestation - Resident Resident Name: Sam Arguelles - ED Attending Attestation I have performed the following: I have examined & evaluated the patient, The case was reviewed & discussed with the resident, I agree w/resident's findings & plan - HPI HPI: 09/11/18 13:58 CC: Picc Line insertion and Rash HPI: The patient is a 57 year old male, with a significant past medical history of HTN, IDDM, and right foot wound (blt LE wounds, recent admission for IV meropenem and vancomycin, signed out AMA 09/02), who presents to the emergency department with, a worsening lower extremity wounds with associated 2 days of a diffuse itchy rash to the trunk and blt lower and upper extremity. Patient endorses signing out AMA prior to the full completion of IV antibiotics because he wanted his private housekeeper/custodian/laundry worker to evaluate him. He endorses going to wound clinic yesterday at which time he was advised to report to the ED for admission under Dr. Reynolds with ID, Dr. Bruce, consult for Picc line placement. He denies any recent fevers, chills, headache or dizziness. He denies any recent nausea, vomit, diarrhea or constipation. He denies any recent chest pain or shortness of breath. He denies any recent dysuria, frequency, urgency or hematuria. Allergies: NKDA - Physicial Exam PE: 09/11/18 13:58 Exam: Vitals: Triage Vital signs reviewed General Appearance: no acute distress, well nourished well developed, Head: Atraumatic, normocephalic Neck: Supple;No Nuchal rigidity Chest Wall: Nontender Cardiac: Regular rate and rhythm, no murmurs, no rubs, no gallops, Lungs: Clear to auscultation bilateral, good air movement bilaterally, Abdomen: Soft, nondistended, normal bowel sounds, nontender to palpation Rectal: Exam deferred Extremities: Full range of motion to all extremities, no cyanosis, clubbing, or edema Skin: +Maculopapular rash to the trunk, arms, and legs with areas of excoriation. Neuro: AOX3; Cranial Nerves 2-12 grossly intact, Strength intact to all extremities, Sensation intact to all extremities Psych: normal mood, normal affect - Medical Decision Making 09/11/18 16:49 57 years old with 2 diabetic foot ulcers signed out from the hospital AGAINST MEDICAL ADVICE 3 presents for PICC line placement and IV antibiotics Case discussed with admitting provider and infections disease
[2018-09-11 14:54] LABS: ANISOCYTOSIS 1+; MACROCYTOSIS 0; PLATELET ESTIMATE NORMAL
[2018-09-11 15:06] LABS: PH,URINE 5.5 (5.0-8.0); URINE APPEARANCE CLEAR; URINE BILIRUBIN NEGATIVE (NEGATIVE); URINE COLOR YELLOW; URINE GLUCOSE (UA) 3+ (NEGATIVE); URINE KETONE NEGATIVE (NEGATIVE); URINE LEUK ESTERASE NEGATIVE (NEGATIVE); URINE NITRITE NEGATIVE (NEGATIVE); URINE PROTEIN NEGATIVE (NEGATIVE); URINE UROBILINOGEN 0.2 mg/dL (0.2-1.0)
--- NOTE | 2018-09-11 17:05 | HP ---
Admitting History and Physical - Primary Care Physician PCP: Tyshawn Reynolds - Admission History of Present Illness: 57 year old male, with a significant past medical history of HTN, IDDM, and right foot wound (blt LE wounds, recent admission for IV meropenem and vancomycin, signed out AMA 09/02), who presents to the emergency department with , a worsening lower extremity wounds with associated 2 days of a diffuse itchy rash to the trunk and blt lower and upper extremity. Patient endorses signing out AMA prior to the full completion of IV antibiotics because he wanted his private planning specialist to evaluate him. He endorses going to wound clinic yesterday at which time he was advised to report to the ED for admission under Dr. Reynolds with ID, Dr. Bruce, consult for Picc line placement. - Past Medical History Cardiovascular: Yes: HTN Endocrine: Yes: Diabetes Mellitus - Smoking History Smoking history: Former smoker Have you smoked in the past 12 months: Yes - Alcohol/Substance Use Hx Alcohol Use: No Home Medications - Allergies Allergies/Adverse Reactions: Allergies Allergy/AdvReac Type Severity Reaction Status Date / Time No Known Allergies Allergy Verified 09/11/18 13:53 - Home Medications Home Medications: Ambulatory Orders Lisinopril [Zestril] 40 mg PO DAILY 08/18/18 Torsemide 20 mg PO DAILY 08/18/18 Aspirin Coated [Ecotrin -] 81 mg PO DAILY 09/01/18 Physical Examination Vital Signs: Vital Signs Temperature 98.4 F 09/11/18 15:50 Pulse Rate 100 H 09/11/18 15:50 Respiratory Rate 18 09/11/18 15:50 Blood Pressure 144/92 09/11/18 15:50 O2 Sat by Pulse Oximetry (%) 97 09/11/18 16:00 Constitutional: Yes: No Distress HENT: Yes: Atraumatic Neck: Yes: Supple Cardiovascular: Yes: Regular Rate and Rhythm Respiratory: Yes: CTA Bilaterally Gastrointestinal: Yes: Normal Bowel Sounds Extremities: Yes: Other (b/l dennis cellulitis) Integumentary: Yes: Rash (on face and body) Neurological: Yes: Alert, Oriented Labs: CBC, BMP 09/11/18 13:23 09/11/18 13:23 Imaging - Results X-ray: Report Reviewed Problem List - Problems (1) Diabetes Assessment/Plan: monitor bgm Code(s): E11.9 - TYPE 2 DIABETES MELLITUS WITHOUT COMPLICATIONS Qualifiers: Diabetes mellitus type: other specified (including RANDA) Diabetes mellitus correction insulin use: unspecified correction insulin use status Diabetes mellitus complication status: with unspecified complications Qualified Code(s) : E13.8 - Other specified diabetes mellitus with unspecified complications (2) Wound infection Assessment/Plan: iv abx id on board Code(s): T14.8XXA - OTHER INJURY OF UNSPECIFIED BODY REGION, INITIAL ENCOUNTER; L08.9 - LOCAL INFECTION OF THE SKIN AND SUBCUTANEOUS TISSUE, UNSP (3) Rash and nonspecific skin eruption Assessment/Plan: on atarax derm consult ordered Code(s): R21 - RASH AND OTHER NONSPECIFIC SKIN ERUPTION Assessment/Plan Laboratory Tests 09/11/18 09/11/18 09/11/18 13:23 13:23 13:23 WBC 8.3 RBC 5.21 Hgb 11.7 Hct 37.1 MCV 71.1 L MCH 22.4 L MCHC 31.5 L RDW 14.8 Plt Count 480 H D MPV 7.6 Absolute Neuts (auto) 4.5 Neutrophils % 54.3 Neutrophils % (Manual) 59.4 Band Neutrophils % 0.0 Lymphocytes % 13.9 D Lymphocytes % (Manual) 11.9 Monocytes % 9.4 Monocytes % (Manual) 8 Eosinophils % 20.4 H* Eosinophils % (Manual) 18.8 H Basophils % 2.0 D Basophils % (Manual) 1.0 Myelocytes % (Man) 0 Promyelocytes % (Man) 0 Blast Cells % (Manual) 0 Nucleated RBC % 0 Metamyelocytes 0 Hypochromia 1+ Platelet Estimate Normal Polychromasia 0 Poikilocytosis 0 Anisocytosis 1+ Microcytosis 1+ Macrocytosis 0 ESR PT with INR 12.90 INR 1.09 PTT (Actin FS) 36.8 H Sodium 135 L Potassium 5.8 H Chloride 104 Carbon Dioxide 24 Anion Gap 7 L BUN 42 H Creatinine 2.3 H Creat Clearance w eGFR 29.67 Random Glucose 282 H Lactic Acid Calcium 9.2 Total Bilirubin 0.3 AST 9 L ALT 16 Alkaline Phosphatase 120 H Creatine Kinase 45 Troponin I 0.04 Total Protein 7.4 Albumin 3.2 L Urine Color Urine Appearance Urine pH Ur Specific [place] Urine Protein Urine Glucose (UA) Urine Ketones Urine Blood Urine Nitrite Urine Bilirubin Urine Urobilinogen Ur Leukocyte Esterase 09/11/18 09/11/18 09/11/18 13:23 13:23 14:40 WBC RBC Hgb Hct MCV MCH MCHC RDW Plt Count MPV Absolute Neuts (auto) Neutrophils % Neutrophils % (Manual) Band Neutrophils % Lymphocytes % Lymphocytes % (Manual) Monocytes % Monocytes % (Manual) Eosinophils % Eosinophils % (Manual) Basophils % Basophils % (Manual) Myelocytes % (Man) Promyelocytes % (Man) Blast Cells % (Manual) Nucleated RBC % Metamyelocytes Hypochromia Platelet Estimate Polychromasia Poikilocytosis Anisocytosis Microcytosis Macrocytosis ESR 62 H PT with INR INR PTT (Actin FS) Sodium Potassium Chloride Carbon Dioxide Anion Gap BUN Creatinine Creat Clearance w eGFR Random Glucose Lactic Acid 2.1 H Calcium Total Bilirubin AST ALT Alkaline Phosphatase Creatine Kinase Troponin I Total Protein Albumin Urine Color Yellow Urine Appearance Clear Urine pH 5.5 Ur Specific [place] 1.021 Urine Protein Negative Urine Glucose (UA) 3+ H Urine Ketones Negative Urine Blood Negative Urine Nitrite Negative Urine Bilirubin Negative Urine Urobilinogen 0.2 Ur Leukocyte Esterase Negative Active Medications Generic Name Dose Route Start Last Admin Trade Name Freq PRN Reason Stop Dose Admin Acetaminophen 1,000 mg 09/11/18 19:50 09/11/18 20:02 Ofirmev Injection - IVPB 1,000 mg Q6H PRN Administration FEVER Aspirin 81 mg 09/12/18 10:00 09/12/18 10:54 Ecotrin - PO 81 mg DAILY ANGELICA Administration Heparin Sodium (Porcine) 5,000 unit 09/11/18 22:00 09/12/18 10:54 Heparin - SQ 5,000 unit BID ANGELICA Administration Hydroxyzine HCl 25 mg 09/11/18 19:51 09/12/18 17:39 Atarax - PO 25 mg TID PRN Administration FOR ITCHING Sodium Chloride 1,000 mls @ 100 mls/hr 09/11/18 20:00 09/12/18 20:29 Normal Saline - IV 100 mls/hr ASDIR ANGELICA Administration Ertapenem 1 gm/ Sodium 50 mls @ 100 mls/hr 09/12/18 12:00 09/12/18 12:00 Chloride IVPB 100 mls/hr DAILY ANGELICA Administration Lisinopril 40 mg 09/12/18 10:00 09/12/18 10:54 Prinivil PO 40 mg DAILY ANGELICA Administration Torsemide 20 mg 09/12/18 10:00 09/12/18 10:55 Demadex - PO 20 mg DAILY ANGELICA Administration
[2018-09-11] MEDS ORDERED: ACETAMINOPHEN 1000 MG/100 ML VIAL (NON FORMULARY) IVPB PRN (19:50)
[2018-09-11] MEDS ORDERED: SODIUM POLYSTYRENE SULFONATE 15 GM/60 ML BOTTLE PO ONE (19:51)
[2018-09-11] MEDS: SODIUM CHLORIDE 1,000 ML IV SCH (20:02)
[2018-09-11] MEDS: HEPARIN NA (PORCINE) 5,000 UNITS/ML 1ML VIAL SQ SCH (22:01)
[2018-09-12] MEDS: SODIUM CHLORIDE 1,000 ML IV SCH ×2 (05:15→20:29)
[2018-09-12] MEDS ORDERED: PT OWN MED DRAWER 7, Y5N ONE ×3 (05:56→12:42)
--- NOTE | 2018-09-12 10:48 | CON.ID ---
Consult Consult Specialty:: infectious diseases Referred by:: Reason for Consultation:: rash,non healing wounds - History of Present Illness Chief Complaint: non healing wounds of the legs - Past Medical History Cardio/Vascular: Yes: HTN Endocrine: Yes: Diabetes Mellitus - Alcohol/Substance Use Hx Alcohol Use: No - Smoking History Smoking history: Former smoker Have you smoked in the past 12 months: Yes Home Medications - Allergies Allergies/Adverse Reactions: Allergies Allergy/AdvReac Type Severity Reaction Status Date / Time No Known Allergies Allergy Verified 09/11/18 13:53 - Home Medications Home Medications: Ambulatory Orders Lisinopril [Zestril] 40 mg PO DAILY 08/18/18 Torsemide 20 mg PO DAILY 08/18/18 Aspirin Coated [Ecotrin -] 81 mg PO DAILY 09/01/18 Physical Exam Vital Signs: Vital Signs Temperature 100 F H 09/12/18 06:13 Pulse Rate 77 09/12/18 06:13 Respiratory Rate 20 09/12/18 06:13 Blood Pressure 112/70 09/12/18 06:13 O2 Sat by Pulse Oximetry (%) 95 09/11/18 21:00 Labs: CBC, BMP 09/11/18 13:23 09/11/18 13:23
[2018-09-12] MEDS: LISINOPRIL 20 MG TABLET (FP) PO SCH (10:54)
[2018-09-12] MEDS: ASPIRIN COATED 81 MG TABLET.EC PO SCH (10:54)
[2018-09-12] MEDS: HEPARIN NA (PORCINE) 5,000 UNITS/ML 1ML VIAL SQ SCH ×2 (10:54→22:11)
[2018-09-12] MEDS: TORSEMIDE 20 MG TABLET (FP) PO SCH (10:55)
[2018-09-12] MEDS ORDERED: VANCOMYCIN 1 GRAM (PRE-DOCKED) 1,000 MG/250 ML BAG IVPB ONE (11:15)
--- NOTE | 2018-09-12 11:18 | PN ---
Progress Note, Physician History of Present Illness: feeling better - Current Medication List Current Medications: Active Medications Acetaminophen (Ofirmev Injection -) 1,000 mg IVPB Q6H PRN PRN Reason: FEVER Last Admin: 09/11/18 20:02 Dose: 1,000 mg Aspirin (Ecotrin -) 81 mg PO DAILY [facility] Last Admin: 09/12/18 10:54 Dose: 81 mg Heparin Sodium (Porcine) (Heparin -) 5,000 unit SQ BID [facility] Last Admin: 09/12/18 10:54 Dose: 5,000 unit Hydroxyzine HCl (Atarax -) 25 mg PO TID PRN PRN Reason: FOR ITCHING Sodium Chloride (Normal Saline -) 1,000 mls @ 100 mls/hr IV ASDIR [facility] Last Admin: 09/12/18 05:15 Dose: 100 mls/hr Ertapenem 1 gm/ Sodium (Chloride) 50 mls @ 100 mls/hr IVPB DAILY [facility] Vancomycin HCl (Vancomycin (Pre-Docked)) 1,000 mg in 250 mls @ 166.667 mls/hr IVPB ONCE ONE; Protocol Stop: 09/12/18 12:44 Lisinopril (Prinivil) 40 mg PO DAILY [facility] Last Admin: 09/12/18 10:54 Dose: 40 mg Torsemide (Demadex -) 20 mg PO DAILY [facility] Last Admin: 09/12/18 10:55 Dose: 20 mg - Objective Vital Signs: Vital Signs Temperature 100 F H 09/12/18 06:13 Pulse Rate 77 09/12/18 06:13 Respiratory Rate 20 09/12/18 06:13 Blood Pressure 112/70 09/12/18 06:13 O2 Sat by Pulse Oximetry (%) 95 09/11/18 21:00 Constitutional: Yes: Calm HENT: Yes: Atraumatic Neck: Yes: Supple Cardiovascular: Yes: Regular Rate and Rhythm Respiratory: Yes: CTA Bilaterally Gastrointestinal: Yes: Normal Bowel Sounds Extremities: Yes: WNL Edema: No Peripheral Pulses WNL: Yes Integumentary: Yes: Rash (all over body) Neurological: Yes: Alert, Oriented Labs: CBC, BMP 09/11/18 13:23 09/11/18 13:23 INR, PTT INR 1.09 (0.83-1.09) 09/11/18 13:23 Problem List - Problems (1) Diabetes Assessment/Plan: monitor bgm Code(s): E11.9 - TYPE 2 DIABETES MELLITUS WITHOUT COMPLICATIONS Qualifiers: Diabetes mellitus type: other specified (including RANDA) Diabetes mellitus personnel manager insulin use: unspecified personnel manager insulin use status Diabetes mellitus complication status: with unspecified complications Qualified Code(s) : E13.8 - Other specified diabetes mellitus with unspecified complications (2) Wound infection Assessment/Plan: iv abx id on board Code(s): T14.8XXA - OTHER INJURY OF UNSPECIFIED BODY REGION, INITIAL ENCOUNTER; L08.9 - LOCAL INFECTION OF THE SKIN AND SUBCUTANEOUS TISSUE, UNSP (3) Rash and nonspecific skin eruption Assessment/Plan: on atarax awaiting derm to see patient on steroids Code(s): R21 - RASH AND OTHER NONSPECIFIC SKIN ERUPTION
[2018-09-12] MEDS: ERTAPENEM SODIUM 1 GM in SODIUM CHLORIDE 50 ML IVPB SCH (12:00)
[2018-09-12] MEDS: hydrOXYzine HCL 25 MG TABLET (FP) PO PRN (17:39)
[2018-09-12] MEDS ORDERED: methylPREDNISolone NA SUCC 125 MG/2 ML VIAL IVPUSH ONE (19:45)
[2018-09-13] MEDS: hydrOXYzine HCL 25 MG TABLET (FP) PO PRN ×2 (06:23→21:04)
[2018-09-13] MEDS: SODIUM CHLORIDE 1,000 ML IV SCH (06:28)
[2018-09-13] MEDS ORDERED: PT OWN MED DRAWER 7, Y5N ONE ×2 (10:26→14:46)
[2018-09-13] MEDS: HEPARIN NA (PORCINE) 5,000 UNITS/ML 1ML VIAL SQ SCH ×2 (10:37→21:06)
[2018-09-13] MEDS: ASPIRIN COATED 81 MG TABLET.EC PO SCH (10:37)
[2018-09-13] MEDS: LISINOPRIL 20 MG TABLET (FP) PO SCH ×2 (10:37→10:46)
[2018-09-13] MEDS: TORSEMIDE 20 MG TABLET (FP) PO SCH (10:38)
[2018-09-13] MEDS: ERTAPENEM SODIUM 1 GM in SODIUM CHLORIDE 50 ML IVPB SCH (10:38)
[2018-09-13] MEDS ORDERED: CALAMINE 8% TOPICAL LOTION 177 ML BOTTLE TP SCH (11:45)
[2018-09-13] MEDS ORDERED: LIDOCAINE HCL 1%, 10 MG/ML (20ML VIAL) ONE (11:49)
--- NOTE | 2018-09-13 11:59 | PN ---
Progress Note, Physician History of Present Illness: still with diffuse rash skin on case low suspicion of drug rash - Current Medication List Current Medications: Active Medications Acetaminophen (Ofirmev Injection -) 1,000 mg IVPB Q6H PRN PRN Reason: FEVER Last Admin: 09/11/18 20:02 Dose: 1,000 mg Aspirin (Ecotrin -) 81 mg PO DAILY [facility] Last Admin: 09/13/18 10:37 Dose: 81 mg Calamine (Calamine 8% Topical Lotion -) 1 applic TP BID [facility] Heparin Sodium (Porcine) (Heparin -) 5,000 unit SQ BID [facility] Last Admin: 09/13/18 10:37 Dose: 5,000 unit Hydroxyzine HCl (Atarax -) 25 mg PO TID PRN PRN Reason: FOR ITCHING Last Admin: 09/13/18 06:23 Dose: 25 mg Sodium Chloride (Normal Saline -) 1,000 mls @ 100 mls/hr IV ASDIR [facility] Last Admin: 09/13/18 06:28 Dose: 100 mls/hr Ertapenem 1 gm/ Sodium (Chloride) 50 mls @ 100 mls/hr IVPB DAILY [facility] Last Admin: 09/13/18 10:38 Dose: 100 mls/hr Lisinopril (Prinivil) 40 mg PO DAILY [facility] Last Admin: 09/13/18 10:46 Dose: Not Given Prednisone (Deltasone -) 40 mg PO DAILY [facility] Torsemide (Demadex -) 20 mg PO DAILY [facility] Last Admin: 09/13/18 10:38 Dose: 20 mg - Objective Vital Signs: Vital Signs Temperature 97.5 F L 09/13/18 06:00 Pulse Rate 64 09/13/18 06:00 Respiratory Rate 18 09/13/18 06:00 Blood Pressure 108/69 09/13/18 06:00 O2 Sat by Pulse Oximetry (%) 98 09/12/18 20:37 Constitutional: Yes: No Distress, Calm Cardiovascular: Yes: Regular Rate and Rhythm Respiratory: Yes: Regular, CTA Bilaterally Gastrointestinal: Yes: Normal Bowel Sounds, Soft Musculoskeletal: Yes: WNL Extremities: Yes: Other Integumentary: Yes: Rash, Other (diffuse maculopapular rash) Neurological: Yes: Alert, Oriented Psychiatric: Yes: Alert, Oriented Labs: CBC, BMP 09/11/18 13:23 09/11/18 13:23 INR, PTT INR 1.09 (0.83-1.09) 09/11/18 13:23 Assessment/Plan osteo of the rt foot drug rash renal failure facial swelling plan will order stat labs get cardiology to evaluate the patient nephrology also will order abx after i see the labs will stop all abx for now
[2018-09-13 12:16] LABS: HEMOGLOBIN 11.3 GM/dL (11.7-16.9); LYMPH % 14.9 % (8-40); MONO % 2.1 % (3.8-10.2)
[2018-09-13 12:18] LABS: BASO % 0.7 % (0-2.0); HEMATOCRIT 36.5 % (35.4-49); MCH 22.4 pg (25.7-33.7); MCHC 31.1 g/dl (32.0-35.9); MEAN CELL VOLUME 71.9 fl (80-96); MEAN PLT VOLUME 8.1 fl (7.5-11.1); NEUT % 81.3 % (42.8-82.8); PLATELET COUNT 338 K/MM3 (134-434); RBC 5.07 M/mm3 (4.00-5.60); RDW 14.7 % (11.9-15.9)
--- NOTE | 2018-09-13 12:32 | CONSULT ---
Consult Consult Specialty:: Dermatology - History Source History Provided By: Patient - Past Medical History Cardio/Vascular: Yes: HTN Endocrine: Yes: Diabetes Mellitus - Alcohol/Substance Use Hx Alcohol Use: No - Smoking History Smoking history: Former smoker Have you smoked in the past 12 months: Yes Home Medications - Allergies Allergies/Adverse Reactions: Allergies Allergy/AdvReac Type Severity Reaction Status Date / Time No Known Allergies Allergy Verified 09/11/18 13:53 - Home Medications Home Medications: Ambulatory Orders Lisinopril [Zestril] 40 mg PO DAILY 08/18/18 Torsemide 20 mg PO DAILY 08/18/18 Aspirin Coated [Ecotrin -] 81 mg PO DAILY 09/01/18 Physical Exam Vital Signs: Vital Signs Temperature 97.5 F L 09/13/18 06:00 Pulse Rate 64 09/13/18 06:00 Respiratory Rate 18 09/13/18 06:00 Blood Pressure 108/69 09/13/18 06:00 O2 Sat by Pulse Oximetry (%) 98 09/12/18 20:37 Labs: CBC, BMP 09/11/18 13:23 09/11/18 13:23 Assessment/Plan 57 yr old man with a medical history of DM, HTN, arrythmia, and chronic ulcer on ankle. Patient reports having had a rash two days prior to his hospitalization. Patient had been off of antibiotics for 5 to 7 days prior to the appearance of the eruption. Patient has no history of new foods , products , medication or OTC preparations. R/O allergic reaction? eczema . Patient has close skin to skin contact with friend who has no skin eruption or pruritis. therefore doubt scabies. generalized eruption papular with multiple excoriations sparing areas between fingers and umbilical area Consent for Biopsy obtained from patient. Left inner forearm prepped and cleaned . 1% lidocaine infiltrated into superficial dermis. #15 blade used to obtain a shave biopsy of the eruption Hemostasis maintained and bandage placed. Specimen submitted to Pathology Please apply triamcinolone cream to affected area and continue prednisone tapering as needed
[2018-09-13] MEDS: predniSONE 20 MG TABLET (UD) PO SCH (12:33)
[2018-09-13 12:38] LABS: ANION GAP 9 MMOL/L (8-16); BLOOD UREA NITROGEN 28 mg/dL (7-18); CALCIUM 8.5 mg/dL (8.5-10.1); CHLORIDE 104 mmol/L (98-107); CO2 23 mmol/L (21-32); CREATININE 2.1 mg/dL (0.55-1.3); POTASSIUM 5.3 mmol/L (3.5-5.1); SODIUM 137 mmol/L (136-145)
[2018-09-13 12:44] LABS: GLUCOSE,RANDOM 309 mg/dL (74-106)
--- NOTE | 2018-09-13 13:19 | PN ---
Progress Note, Physician History of Present Illness: feeling better - Current Medication List Current Medications: Active Medications Acetaminophen (Ofirmev Injection -) 1,000 mg IVPB Q6H PRN PRN Reason: FEVER Last Admin: 09/11/18 20:02 Dose: 1,000 mg Aspirin (Ecotrin -) 81 mg PO DAILY [facility] Last Admin: 09/13/18 10:37 Dose: 81 mg Heparin Sodium (Porcine) (Heparin -) 5,000 unit SQ BID [facility] Last Admin: 09/13/18 10:37 Dose: 5,000 unit Hydroxyzine HCl (Atarax -) 25 mg PO TID PRN PRN Reason: FOR ITCHING Last Admin: 09/13/18 06:23 Dose: 25 mg Sodium Chloride (Normal Saline -) 1,000 mls @ 100 mls/hr IV ASDIR [facility] Last Admin: 09/13/18 06:28 Dose: 100 mls/hr Lisinopril (Prinivil) 40 mg PO DAILY [facility] Last Admin: 09/13/18 10:46 Dose: Not Given Prednisone (Deltasone -) 40 mg PO DAILY [facility] Last Admin: 09/13/18 12:33 Dose: 40 mg Torsemide (Demadex -) 20 mg PO DAILY [facility] Last Admin: 09/13/18 10:38 Dose: 20 mg Triamcinolone Acetonide (Aristocort 0.1% Cream -) 1 applic TP BID [facility] - Objective Vital Signs: Vital Signs Temperature 97.5 F L 09/13/18 06:00 Pulse Rate 64 09/13/18 06:00 Respiratory Rate 18 09/13/18 06:00 Blood Pressure 108/69 09/13/18 06:00 O2 Sat by Pulse Oximetry (%) 98 09/12/18 20:37 Constitutional: Yes: No Distress HENT: Yes: Other (rash much metter) Neck: Yes: Supple Cardiovascular: Yes: Regular Rate and Rhythm Respiratory: Yes: CTA Bilaterally Gastrointestinal: Yes: Normal Bowel Sounds Extremities: Yes: WNL Edema: No Peripheral Pulses WNL: Yes Neurological: Yes: Alert, Oriented Labs: CBC, BMP 09/13/18 06:45 09/13/18 06:45 INR, PTT INR 1.09 (0.83-1.09) 09/11/18 13:23 Problem List - Problems (1) Diabetes Assessment/Plan: monitor bgm on insulin Code(s): E11.9 - TYPE 2 DIABETES MELLITUS WITHOUT COMPLICATIONS Qualifiers: Diabetes mellitus type: other specified (including RANDA) Diabetes mellitus long distance operator insulin use: unspecified long-term insulin use status Diabetes mellitus complication status: with unspecified complications Qualified Code(s) : E13.8 - Other specified diabetes mellitus with unspecified complications (2) Wound infection Assessment/Plan: iv abx id on board Code(s): T14.8XXA - OTHER INJURY OF UNSPECIFIED BODY REGION, INITIAL ENCOUNTER; L08.9 - LOCAL INFECTION OF THE SKIN AND SUBCUTANEOUS TISSUE, UNSP (3) Rash and nonspecific skin eruption Assessment/Plan: on atarax derm consult ordered on steroids Code(s): R21 - RASH AND OTHER NONSPECIFIC SKIN ERUPTION (4) CKD (chronic kidney disease) Code(s): N18.9 - CHRONIC KIDNEY DISEASE, UNSPECIFIED (5) HTN (hypertension) Code(s): I10 - ESSENTIAL (PRIMARY) HYPERTENSION
[2018-09-13] MEDS: TRIAMCINOLONE ACET 0.1% CREAM 15 GM TUBE TP SCH ×2 (14:48→21:04)
--- NOTE | 2018-09-13 15:53 | CONSULT ---
Consult Consult Specialty:: Nephrology Reason for Consultation:: CKD - History of Present Illness Chief Complaint: sent in from wound care History of Present Illness: Pt is a 57 year old male with pmhx of HTN, DM, CKD, and arrythmia who was sent in from wound care for non healing wounds. He complains of a rash that is diffuse. It began about 5 days ago. He was found to have elevated creatinine and I was called to evaluate him. He has history of CKD and follows with Dr Basurto. He denies dysuria or hematuria. He denies fevers or chills. He denies nsaid use. He had a biopsy of the rash. - History Source History Provided By: Patient - Past Medical History Cardio/Vascular: Yes: HTN Renal/: Yes: Renal Calculi Endocrine: Yes: Diabetes Mellitus - Alcohol/Substance Use Hx Alcohol Use: No - Smoking History Smoking history: Former smoker Have you smoked in the past 12 months: Yes Home Medications - Allergies Allergies/Adverse Reactions: Allergies Allergy/AdvReac Type Severity Reaction Status Date / Time No Known Allergies Allergy Verified 09/11/18 13:53 - Home Medications Home Medications: Ambulatory Orders Lisinopril [Zestril] 40 mg PO DAILY 08/18/18 Torsemide 20 mg PO DAILY 08/18/18 Aspirin Coated [Ecotrin -] 81 mg PO DAILY 09/01/18 Family Disease History - Family Disease History Family History: Denies Review of Systems - Review of Systems Constitutional: reports: Malaise. denies: Chills Eyes: reports: No Symptoms HENT: reports: No Symptoms Neck: reports: No Symptoms Cardiovascular: reports: No Symptoms Respiratory: reports: No Symptoms Gastrointestinal: reports: No Symptoms Genitourinary: reports: No Symptoms Musculoskeletal: reports: No Symptoms Integumentary: reports: Rash Hematology/Lymphatic: reports: No Symptoms Psychiatric: reports: No Symptoms Physical Exam Vital Signs: Vital Signs Temperature 98.0 F 09/13/18 15:26 Pulse Rate 100 H 09/13/18 15:26 Respiratory Rate 18 09/13/18 15:26 Blood Pressure 104/73 09/13/18 15:26 O2 Sat by Pulse Oximetry (%) 98 09/13/18 09:00 Constitutional: Yes: Calm Eyes: Yes: Conjunctiva Clear HENT: Yes: Atraumatic Cardiovascular: Yes: S1, S2 Respiratory: Yes: CTA Bilaterally Gastrointestinal: Yes: Soft Renal/: Yes: WNL Musculoskeletal: Yes: WNL Edema: LLE: Trace, RLE: Trace Integumentary: Yes: Rash Neurological: Yes: Oriented Labs: CBC, BMP 09/13/18 06:45 09/13/18 06:45 Laboratory Tests 08/13/18 08/20/18 08/27/18 05:30 09:23 10:32 Sodium Potassium Creatinine 1.5 H 1.8 H 2.1 H Urine Protein Urine Glucose (UA) Urine Blood 09/01/18 09/02/18 09/11/18 13:34 07:08 13:23 Sodium Potassium Creatinine 2.4 H 1.8 H 2.3 H Urine Protein Urine Glucose (UA) Urine Blood 09/11/18 09/13/18 14:40 06:45 Sodium 137 Potassium 5.3 H Creatinine 2.1 H Urine Protein Negative Urine Glucose (UA) 3+ H Urine Blood Negative Imaging - Results Chest X-ray: Report Reviewed Problem List - Problems (1) CKD (chronic kidney disease) Code(s): N18.9 - CHRONIC KIDNEY DISEASE, UNSPECIFIED (2) Diabetes Code(s): E11.9 - TYPE 2 DIABETES MELLITUS WITHOUT COMPLICATIONS Qualifiers: Diabetes mellitus type: other specified (including RANDA) Diabetes mellitus fci insulin use: unspecified fci insulin use status Diabetes mellitus complication status: with unspecified complications Qualified Code(s) : E13.8 - Other specified diabetes mellitus with unspecified complications (3) Rash and nonspecific skin eruption Code(s): R21 - RASH AND OTHER NONSPECIFIC SKIN ERUPTION Assessment/Plan Current Medications Generic Name Dose Route Start Last Admin Trade Name Candi PRN Reason Stop Dose Admin Acetaminophen 1,000 mg 09/11/18 19:50 09/11/18 20:02 Ofirmev Injection - IVPB 1,000 mg Q6H PRN Administration FEVER Aspirin 81 mg 09/12/18 10:00 09/13/18 10:37 Ecotrin - PO 81 mg DAILY [facility] Administration Heparin Sodium (Porcine) 5,000 unit 09/11/18 22:00 09/13/18 10:37 Heparin - SQ 5,000 unit BID [facility] Administration Hydroxyzine HCl 25 mg 09/11/18 19:51 09/13/18 06:23 Atarax - PO 25 mg TID PRN Administration FOR ITCHING Insulin Aspart 1 vial 09/13/18 16:30 Novolog Vial Sliding Scale - SQ ACHS [facility] Protocol Lisinopril 40 mg 09/12/18 10:00 09/13/18 10:46 Prinivil PO Not Given DAILY [facility] Prednisone 40 mg 09/13/18 11:45 09/13/18 12:33 Deltasone - PO 40 mg DAILY [facility] Administration Torsemide 20 mg 09/12/18 10:00 09/13/18 10:38 Demadex - PO 20 mg DAILY [facility] Administration Triamcinolone Acetonide 1 applic 09/13/18 12:15 09/13/18 14:48 Aristocort 0.1% Cream - TP 1 applic BID [facility] Administration Impression 1. CKD 2. hyperkalemia 3. rash 4. DM 5. HTN Plan - ua neg for blood or protein - check renal ultrasound - low potassium diet - potassium improving - will give fluid as it will help drive down potassium - hold lisinopril as bp is low and K is high - repeat labs in am - follow skin biopsy
[2018-09-13] MEDS ORDERED: SODIUM CHLORIDE 0.45% 1,000 ML IV SCH (16:30)
[2018-09-13] MEDS: INSULIN SLIDING SCALE (NOVOLOG) 1 VIAL SQ SCH ×2 (19:03→21:07)
[2018-09-14] MEDS: INSULIN SLIDING SCALE (NOVOLOG) 1 VIAL SQ SCH ×4 (06:47→22:19)
[2018-09-14 08:07] LABS: ALBUMIN 2.7 g/dl (3.4-5.0); ALK PHOS 96 U/L (45-117); ANION GAP 9 MMOL/L (8-16); BILIRUBIN,TOTAL 0.7 mg/dL (0.2-1); BLOOD UREA NITROGEN 39 mg/dL (7-18); CALCIUM 8.6 mg/dL (8.5-10.1); CHLORIDE 102 mmol/L (98-107); CO2 26 mmol/L (21-32); CREATININE 2.2 mg/dL (0.55-1.3); POTASSIUM 4.7 mmol/L (3.5-5.1); SGOT/AST 11 U/L (15-37); SGPT/ALT 14 U/L (13-61); SODIUM 136 mmol/L (136-145); TOT PROT 6.3 g/dl (6.4-8.2)
[2018-09-14 08:34] LABS: GLUCOSE,RANDOM 395 mg/dL (74-106)
[2018-09-14] MEDS: ASPIRIN COATED 81 MG TABLET.EC PO SCH (10:46)
[2018-09-14] MEDS: TORSEMIDE 20 MG TABLET (FP) PO SCH (10:46)
[2018-09-14] MEDS: predniSONE 20 MG TABLET (UD) PO SCH (10:46)
[2018-09-14] MEDS: HEPARIN NA (PORCINE) 5,000 UNITS/ML 1ML VIAL SQ SCH ×2 (10:47→22:18)
[2018-09-14] MEDS: TRIAMCINOLONE ACET 0.1% CREAM 15 GM TUBE TP SCH ×2 (10:47→22:18)
--- NOTE | 2018-09-14 11:04 | PN ---
Progress Note, Physician History of Present Illness: patient stable swelling of the face looks better rash looks better drying out still itching - Current Medication List Current Medications: Active Medications Acetaminophen (Ofirmev Injection -) 1,000 mg IVPB Q6H PRN PRN Reason: FEVER Last Admin: 09/11/18 20:02 Dose: 1,000 mg Aspirin (Ecotrin -) 81 mg PO DAILY [facility] Last Admin: 09/14/18 10:46 Dose: 81 mg Heparin Sodium (Porcine) (Heparin -) 5,000 unit SQ BID [facility] Last Admin: 09/14/18 10:47 Dose: Not Given Hydroxyzine HCl (Atarax -) 25 mg PO TID PRN PRN Reason: FOR ITCHING Last Admin: 09/13/18 21:04 Dose: 25 mg Sodium Chloride (1/2 Normal Saline) 1,000 mls @ 50 mls/hr IV ASDIR [facility] Stop: 09/14/18 16:20 Last Admin: 09/13/18 19:11 Dose: 50 mls/hr Insulin Aspart (Novolog Vial Sliding Scale -) 1 vial SQ ACHS [facility]; Protocol Last Admin: 09/14/18 06:47 Dose: 14 units Prednisone (Deltasone -) 40 mg PO DAILY [facility] Last Admin: 09/14/18 10:46 Dose: 40 mg Torsemide (Demadex -) 20 mg PO DAILY [facility] Last Admin: 09/14/18 10:46 Dose: 20 mg Triamcinolone Acetonide (Aristocort 0.1% Cream -) 1 applic TP BID [facility] Last Admin: 09/14/18 10:47 Dose: 1 applic - Objective Vital Signs: Vital Signs Temperature 97.7 F 09/14/18 06:00 Pulse Rate 93 H 09/14/18 06:00 Respiratory Rate 20 09/14/18 06:00 Blood Pressure 116/75 09/14/18 06:00 O2 Sat by Pulse Oximetry (%) 98 09/13/18 21:00 Constitutional: Yes: Calm, Mild Distress Cardiovascular: Yes: S1, S2 Respiratory: Yes: Regular, CTA Bilaterally Gastrointestinal: Yes: Normal Bowel Sounds, Soft Musculoskeletal: Yes: WNL Extremities: Yes: Other Integumentary: Yes: Rash Neurological: Yes: Alert, Oriented Psychiatric: Yes: Alert, Oriented Labs: CBC, BMP 09/13/18 06:45 09/14/18 07:12 INR, PTT INR 1.09 (0.83-1.09) 09/11/18 13:23 Assessment/Plan osteo of the rt foot drug rash renal failure facial swelling plan will continue holding abx for today will restart it tomorrow and see await for biopsy results nephro on case
[2018-09-14] MEDS ORDERED: INSULIN (NOVOLOG) ASPART 100 UNITS/ML 10ML VIAL ONE (12:06)
--- NOTE | 2018-09-14 18:48 | PN ---
Progress Note, Physician History of Present Illness: Pt seen and examined at bedside. He is awake and alert. He denies shortness of breath. - Current Medication List Current Medications: Active Medications Acetaminophen (Ofirmev Injection -) 1,000 mg IVPB Q6H PRN PRN Reason: FEVER Last Admin: 09/11/18 20:02 Dose: 1,000 mg Aspirin (Ecotrin -) 81 mg PO DAILY [facility] Last Admin: 09/14/18 10:46 Dose: 81 mg Heparin Sodium (Porcine) (Heparin -) 5,000 unit SQ BID [facility] Last Admin: 09/14/18 10:47 Dose: Not Given Hydroxyzine HCl (Atarax -) 25 mg PO TID PRN PRN Reason: FOR ITCHING Last Admin: 09/13/18 21:04 Dose: 25 mg Insulin Aspart (Novolog Vial Sliding Scale -) 1 vial SQ ACHS [facility]; Protocol Last Admin: 09/14/18 17:01 Dose: 12 units Prednisone (Deltasone -) 40 mg PO DAILY [facility] Last Admin: 09/14/18 10:46 Dose: 40 mg Torsemide (Demadex -) 20 mg PO DAILY [facility] Last Admin: 09/14/18 10:46 Dose: 20 mg Triamcinolone Acetonide (Aristocort 0.1% Cream -) 1 applic TP BID [facility] Last Admin: 09/14/18 10:47 Dose: 1 applic - Objective Vital Signs: Vital Signs Temperature 97.4 F L 09/14/18 15:38 Pulse Rate 80 09/14/18 15:38 Respiratory Rate 20 09/14/18 15:38 Blood Pressure 114/74 09/14/18 15:38 O2 Sat by Pulse Oximetry (%) 98 09/14/18 09:00 Constitutional: Yes: Calm Eyes: Yes: Conjunctiva Clear HENT: Yes: Atraumatic Cardiovascular: Yes: S1, S2 Respiratory: Yes: CTA Bilaterally Gastrointestinal: Yes: Soft Genitourinary: Yes: WNL Musculoskeletal: Yes: WNL Edema: No Integumentary: Yes: Rash Neurological: Yes: Oriented Psychiatric: Yes: Oriented Labs: CBC, BMP 09/13/18 06:45 09/14/18 07:12 INR, PTT INR 1.09 (0.83-1.09) 09/11/18 13:23 Problem List - Problems (1) CKD (chronic kidney disease) Code(s): N18.9 - CHRONIC KIDNEY DISEASE, UNSPECIFIED (2) Diabetes Code(s): E11.9 - TYPE 2 DIABETES MELLITUS WITHOUT COMPLICATIONS Qualifiers: Diabetes mellitus type: other specified (including RANDA) 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 insulin use status Diabetes mellitus complication status: with unspecified complications Qualified Code(s) : E13.8 - Other specified diabetes mellitus with unspecified complications (3) Rash and nonspecific skin eruption Code(s): R21 - RASH AND OTHER NONSPECIFIC SKIN ERUPTION Assessment/Plan Current Medications Generic Name Dose Route Start Last Admin Trade Name Freq PRN Reason Stop Dose Admin Acetaminophen 1,000 mg 09/11/18 19:50 09/11/18 20:02 Ofirmev Injection - IVPB 1,000 mg Q6H PRN Administration FEVER Aspirin 81 mg 09/12/18 10:00 09/14/18 10:46 Ecotrin - PO 81 mg DAILY [facility] Administration Heparin Sodium (Porcine) 5,000 unit 09/11/18 22:00 09/14/18 10:47 Heparin - SQ Not Given BID [facility] Hydroxyzine HCl 25 mg 09/11/18 19:51 09/13/18 21:04 Atarax - PO 25 mg TID PRN Administration FOR ITCHING Insulin Aspart 1 vial 09/13/18 16:30 09/14/18 17:01 Novolog Vial Sliding Scale - SQ 12 units ACHS [facility] Administration Protocol Prednisone 40 mg 09/13/18 11:45 09/14/18 10:46 Deltasone - PO 40 mg DAILY [facility] Administration Torsemide 20 mg 09/12/18 10:00 09/14/18 10:46 Demadex - PO 20 mg DAILY [facility] Administration Triamcinolone Acetonide 1 applic 09/13/18 12:15 09/14/18 10:47 Aristocort 0.1% Cream - TP 1 applic BID [facility] Administration Impression 1. CKD 2. hyperkalemia 3. rash 4. DM 5. HTN Plan - potassium is improved - repeat labs in am - renal ultrasound reviewed - ua neg for blood or protein - low potassium diet - hold lisinopril as bp is low and K is high - follow skin biopsy
[2018-09-14 21:22] LABS: BASO % 0.4 % (0-2.0); EOS % 5.4 % (0-4.5); HEMATOCRIT 35.4 % (35.4-49); HEMOGLOBIN 11.2 GM/dL (11.7-16.9); LYMPH % 8.7 % (8-40); MCH 22.6 pg (25.7-33.7); MCHC 31.6 g/dl (32.0-35.9); MEAN CELL VOLUME 71.4 fl (80-96); MONO % 4.1 % (3.8-10.2); NEUT % 81.4 % (42.8-82.8); PLATELET COUNT 418 K/MM3 (134-434); RBC 4.96 M/mm3 (4.00-5.60); RDW 14.9 % (11.9-15.9); WHITE BLOOD COUNT 9.3 K/mm3 (4.0-10.0)
--- NOTE | 2018-09-14 21:42 | PN ---
Progress Note, Physician History of Present Illness: No new complaints - Current Medication List Current Medications: Active Medications Acetaminophen (Ofirmev Injection -) 1,000 mg IVPB Q6H PRN PRN Reason: FEVER Last Admin: 09/11/18 20:02 Dose: 1,000 mg Aspirin (Ecotrin -) 81 mg PO DAILY [facility] Last Admin: 09/14/18 10:46 Dose: 81 mg Heparin Sodium (Porcine) (Heparin -) 5,000 unit SQ BID [facility] Last Admin: 09/14/18 10:47 Dose: Not Given Hydroxyzine HCl (Atarax -) 25 mg PO TID PRN PRN Reason: FOR ITCHING Last Admin: 09/13/18 21:04 Dose: 25 mg Insulin Aspart (Novolog Vial Sliding Scale -) 1 vial SQ ACHS [facility]; Protocol Last Admin: 09/14/18 17:01 Dose: 12 units Prednisone (Deltasone -) 40 mg PO DAILY [facility] Last Admin: 09/14/18 10:46 Dose: 40 mg Torsemide (Demadex -) 20 mg PO DAILY [facility] Last Admin: 09/14/18 10:46 Dose: 20 mg Triamcinolone Acetonide (Aristocort 0.1% Cream -) 1 applic TP BID [facility] Last Admin: 09/14/18 10:47 Dose: 1 applic - Objective Vital Signs: Vital Signs Temperature 97.5 F L 09/14/18 18:30 Pulse Rate 86 09/14/18 18:30 Respiratory Rate 20 09/14/18 18:30 Blood Pressure 117/69 09/14/18 18:30 O2 Sat by Pulse Oximetry (%) 98 09/14/18 09:00 Constitutional: Yes: Well Nourished Cardiovascular: Yes: WNL, Regular Rate and Rhythm Respiratory: Yes: WNL, Regular, CTA Bilaterally Gastrointestinal: Yes: WNL, Normal Bowel Sounds, Soft Edema: No Integumentary: Yes: Other (generalized eczematous papular rash) Labs: CBC, BMP 09/13/18 06:45 09/14/18 07:12 INR, PTT INR 1.09 (0.83-1.09) 09/11/18 13:23 Problem List - Problems (1) Rash and nonspecific skin eruption Assessment/Plan: Derm consult noted Cont prednisone Cont atarax Code(s): R21 - RASH AND OTHER NONSPECIFIC SKIN ERUPTION (2) HTN (hypertension) Assessment/Plan: BP slightly on hypotensive side Lisinopril was held Cont demedex Code(s): I10 - ESSENTIAL (PRIMARY) HYPERTENSION (3) CKD (chronic kidney disease) Code(s): N18.9 - CHRONIC KIDNEY DISEASE, UNSPECIFIED (4) Diabetes Assessment/Plan: Cont sliding scale w/ coverage Code(s): E11.9 - TYPE 2 DIABETES MELLITUS WITHOUT COMPLICATIONS Qualifiers: Diabetes mellitus type: other specified (including RANDA) Diabetes mellitus senior living insulin use: unspecified senior living insulin use status Diabetes mellitus complication status: with unspecified complications Qualified Code(s) : E13.8 - Other specified diabetes mellitus with unspecified complications (5) Wound infection Code(s): T14.8XXA - OTHER INJURY OF UNSPECIFIED BODY REGION, INITIAL ENCOUNTER; L08.9 - LOCAL INFECTION OF THE SKIN AND SUBCUTANEOUS TISSUE, UNSP
[2018-09-14 21:52] LABS: ALBUMIN 2.9 g/dl (3.4-5.0); ALK PHOS 99 U/L (45-117); ANION GAP 9 MMOL/L (8-16); BILIRUBIN,TOTAL 0.2 mg/dL (0.2-1); BLOOD UREA NITROGEN 44 mg/dL (7-18); CALCIUM 8.8 mg/dL (8.5-10.1); CHLORIDE 99 mmol/L (98-107); CO2 28 mmol/L (21-32); CREATININE 2.5 mg/dL (0.55-1.3); POTASSIUM 5.2 mmol/L (3.5-5.1); SGOT/AST 7 U/L (15-37); SGPT/ALT 18 U/L (13-61); SODIUM 136 mmol/L (136-145); TOT PROT 6.5 g/dl (6.4-8.2)
[2018-09-14 22:00] LABS: GLUCOSE,RANDOM 449 mg/dL (74-106)
[2018-09-15] MEDS: INSULIN SLIDING SCALE (NOVOLOG) 1 VIAL SQ SCH ×4 (06:43→22:19)
[2018-09-15] MEDS ORDERED: INSULIN (NOVOLOG) ASPART 100 UNITS/ML 10ML VIAL ONE ×2 (06:49→11:46)
[2018-09-15 07:50] LABS: ANION GAP 9 MMOL/L (8-16); BLOOD UREA NITROGEN 40 mg/dL (7-18); CALCIUM 8.9 mg/dL (8.5-10.1); CHLORIDE 103 mmol/L (98-107); CO2 24 mmol/L (21-32); CREATININE 2.1 mg/dL (0.55-1.3); GLUCOSE,RANDOM 242 mg/dL (74-106); POTASSIUM 4.2 mmol/L (3.5-5.1); SODIUM 136 mmol/L (136-145)
[2018-09-15] MEDS: predniSONE 20 MG TABLET (UD) PO SCH (10:27)
[2018-09-15] MEDS: HEPARIN NA (PORCINE) 5,000 UNITS/ML 1ML VIAL SQ SCH ×2 (10:28→22:10)
[2018-09-15] MEDS: ASPIRIN COATED 81 MG TABLET.EC PO SCH (10:28)
[2018-09-15] MEDS: TRIAMCINOLONE ACET 0.1% CREAM 15 GM TUBE TP SCH ×2 (10:29→22:20)
[2018-09-15] MEDS ORDERED: PT OWN MED DRAWER 7, Y5N ONE ×2 (10:47→15:28)
[2018-09-15] MEDS: TORSEMIDE 20 MG TABLET (FP) PO SCH (11:34)
--- NOTE | 2018-09-15 13:40 | PN ---
Progress Note, Physician History of Present Illness: rash looks much better itching better awaiting for skin biopsy results patient feels much better puffiness of the face improved - Current Medication List Current Medications: Active Medications Acetaminophen (Ofirmev Injection -) 1,000 mg IVPB Q6H PRN PRN Reason: FEVER Last Admin: 09/11/18 20:02 Dose: 1,000 mg Aspirin (Ecotrin -) 81 mg PO DAILY [facility] Last Admin: 09/15/18 10:28 Dose: 81 mg Heparin Sodium (Porcine) (Heparin -) 5,000 unit SQ BID [facility] Last Admin: 09/15/18 10:28 Dose: Not Given Hydroxyzine HCl (Atarax -) 25 mg PO TID PRN PRN Reason: FOR ITCHING Last Admin: 09/13/18 21:04 Dose: 25 mg Insulin Aspart (Novolog Vial Sliding Scale -) 1 vial SQ ACHS [facility]; Protocol Last Admin: 09/15/18 11:49 Dose: 10 units Prednisone (Deltasone -) 40 mg PO DAILY [facility] Last Admin: 09/15/18 10:27 Dose: 40 mg Torsemide (Demadex -) 20 mg PO DAILY [facility] Last Admin: 09/15/18 11:34 Dose: 20 mg Triamcinolone Acetonide (Aristocort 0.1% Cream -) 1 applic TP BID [facility] Last Admin: 09/15/18 10:29 Dose: 1 applic - Objective Vital Signs: Vital Signs Temperature 97.2 F L 09/15/18 10:00 Pulse Rate 78 09/15/18 10:00 Respiratory Rate 20 09/15/18 10:00 Blood Pressure 134/82 09/15/18 10:00 O2 Sat by Pulse Oximetry (%) 97 09/14/18 21:00 Constitutional: Yes: No Distress, Calm Cardiovascular: Yes: S1, S2 Respiratory: Yes: Regular, CTA Bilaterally Gastrointestinal: Yes: Normal Bowel Sounds, Soft Musculoskeletal: Yes: WNL Extremities: Yes: Other Integumentary: Yes: Rash Wound/Incision: Yes: Clean/Dry Neurological: Yes: Alert, Oriented Psychiatric: Yes: Alert, Oriented Labs: CBC, BMP 09/13/18 06:45 09/15/18 06:30 INR, PTT INR 1.09 (0.83-1.09) 09/11/18 13:23 Assessment/Plan osteo of the rt foot drug rash renal failure facial swelling plan will start patient on abx now will see if patient has any side effects rest as per the team await for skin biopsy
[2018-09-15] MEDS ORDERED: VANCOMYCIN 1 GRAM (PRE-DOCKED) 1,000 MG/250 ML BAG IVPB ONE (14:00)
--- NOTE | 2018-09-15 14:05 | PN ---
Progress Note, Physician History of Present Illness: Pt seen and examined at bedside. He is awake and alert. He feels that the itching is improved. - Current Medication List Current Medications: Active Medications Acetaminophen (Ofirmev Injection -) 1,000 mg IVPB Q6H PRN PRN Reason: FEVER Last Admin: 09/11/18 20:02 Dose: 1,000 mg Aspirin (Ecotrin -) 81 mg PO DAILY [facility] Last Admin: 09/15/18 10:28 Dose: 81 mg Heparin Sodium (Porcine) (Heparin -) 5,000 unit SQ BID [facility] Last Admin: 09/15/18 10:28 Dose: Not Given Hydroxyzine HCl (Atarax -) 25 mg PO TID PRN PRN Reason: FOR ITCHING Last Admin: 09/13/18 21:04 Dose: 25 mg Ertapenem 1 gm/ Sodium (Chloride) 50 mls @ 100 mls/hr IVPB DAILY [facility] Vancomycin HCl (Vancomycin (Pre-Docked)) 1,000 mg in 250 mls @ 166.667 mls/hr IVPB ONCE ONE; Protocol Stop: 09/15/18 15:29 Insulin Aspart (Novolog Vial Sliding Scale -) 1 vial SQ ACHS [facility]; Protocol Last Admin: 09/15/18 11:49 Dose: 10 units Prednisone (Deltasone -) 40 mg PO DAILY [facility] Last Admin: 09/15/18 10:27 Dose: 40 mg Torsemide (Demadex -) 20 mg PO DAILY [facility] Last Admin: 09/15/18 11:34 Dose: 20 mg Triamcinolone Acetonide (Aristocort 0.1% Cream -) 1 applic TP BID [facility] Last Admin: 09/15/18 10:29 Dose: 1 applic - Objective Vital Signs: Vital Signs Temperature 97.2 F L 09/15/18 10:00 Pulse Rate 78 09/15/18 10:00 Respiratory Rate 20 09/15/18 10:00 Blood Pressure 134/82 09/15/18 10:00 O2 Sat by Pulse Oximetry (%) 97 09/15/18 09:00 Constitutional: Yes: Calm Eyes: Yes: Conjunctiva Clear HENT: Yes: Atraumatic Neck: Yes: Supple Cardiovascular: Yes: S1, S2 Respiratory: Yes: CTA Bilaterally Gastrointestinal: Yes: Normal Bowel Sounds, Soft Genitourinary: Yes: WNL Musculoskeletal: Yes: WNL Edema: No Integumentary: Yes: Rash Neurological: Yes: Oriented Psychiatric: Yes: Oriented Labs: CBC, BMP 09/13/18 06:45 09/15/18 06:30 INR, PTT INR 1.09 (0.83-1.09) 09/11/18 13:23 Problem List - Problems (1) CKD (chronic kidney disease) Code(s): N18.9 - CHRONIC KIDNEY DISEASE, UNSPECIFIED (2) Diabetes Code(s): E11.9 - TYPE 2 DIABETES MELLITUS WITHOUT COMPLICATIONS Qualifiers: Diabetes mellitus type: other specified (including RANDA) Diabetes mellitus prison insulin use: unspecified termite helper insulin use status Diabetes mellitus complication status: with unspecified complications Qualified Code(s) : E13.8 - Other specified diabetes mellitus with unspecified complications (3) Rash and nonspecific skin eruption Code(s): R21 - RASH AND OTHER NONSPECIFIC SKIN ERUPTION Assessment/Plan Current Medications Generic Name Dose Route Start Last Admin Trade Name Freq PRN Reason Stop Dose Admin Acetaminophen 1,000 mg 09/11/18 19:50 09/11/18 20:02 Ofirmev Injection - IVPB 1,000 mg Q6H PRN Administration FEVER Aspirin 81 mg 09/12/18 10:00 09/15/18 10:28 Ecotrin - PO 81 mg DAILY ANGELICA Administration Heparin Sodium (Porcine) 5,000 unit 09/11/18 22:00 09/15/18 10:28 Heparin - SQ Not Given BID ANGELICA Hydroxyzine HCl 25 mg 09/11/18 19:51 09/13/18 21:04 Atarax - PO 25 mg TID PRN Administration FOR ITCHING Ertapenem 1 gm/ Sodium 50 mls @ 100 mls/hr 09/15/18 14:30 Chloride IVPB DAILY [facility] Vancomycin HCl 1,000 mg in 250 mls @ 166.667 mls/hr 09/15/18 14:00 Vancomycin (Pre-Docked) IVPB 09/15/18 15:29 ONCE ONE Protocol Insulin Aspart 1 vial 09/13/18 16:30 09/15/18 11:49 Novolog Vial Sliding Scale - SQ 10 units ACHS ANGELICA Administration Protocol Prednisone 40 mg 09/13/18 11:45 09/15/18 10:27 Deltasone - PO 40 mg DAILY ANGELICA Administration Torsemide 20 mg 09/12/18 10:00 09/15/18 11:34 Demadex - PO 20 mg DAILY ANGELICA Administration Triamcinolone Acetonide 1 applic 09/13/18 12:15 09/15/18 10:29 Aristocort 0.1% Cream - TP 1 applic BID ANGELICA Administration Impression 1. CKD 2. hyperkalemia 3. rash 4. DM 5. HTN Plan - renal function stabilizing - follow up skin biopsy - ua negative for active sediment, neg blood or protein - low potassium diet - hold lisinopril as bp is low and K is high
[2018-09-15] MEDS: ERTAPENEM SODIUM 1 GM in SODIUM CHLORIDE 50 ML IVPB SCH (15:32)
--- NOTE | 2018-09-15 17:18 | PN ---
Progress Note, Physician History of Present Illness: feeling better - Current Medication List Current Medications: Active Medications Acetaminophen (Ofirmev Injection -) 1,000 mg IVPB Q6H PRN PRN Reason: FEVER Last Admin: 09/11/18 20:02 Dose: 1,000 mg Aspirin (Ecotrin -) 81 mg PO DAILY [facility] Last Admin: 09/15/18 10:28 Dose: 81 mg Heparin Sodium (Porcine) (Heparin -) 5,000 unit SQ BID [facility] Last Admin: 09/15/18 10:28 Dose: Not Given Hydroxyzine HCl (Atarax -) 25 mg PO TID PRN PRN Reason: FOR ITCHING Last Admin: 09/13/18 21:04 Dose: 25 mg Ertapenem 1 gm/ Sodium (Chloride) 50 mls @ 100 mls/hr IVPB DAILY [facility] Last Admin: 09/15/18 15:32 Dose: 100 mls/hr Insulin Aspart (Novolog Vial Sliding Scale -) 1 vial SQ ACHS [facility]; Protocol Last Admin: 09/15/18 16:53 Dose: 14 units Prednisone (Deltasone -) 40 mg PO DAILY [facility] Last Admin: 09/15/18 10:27 Dose: 40 mg Torsemide (Demadex -) 20 mg PO DAILY [facility] Last Admin: 09/15/18 11:34 Dose: 20 mg Triamcinolone Acetonide (Aristocort 0.1% Cream -) 1 applic TP BID [facility] Last Admin: 09/15/18 10:29 Dose: 1 applic - Objective Vital Signs: Vital Signs Temperature 97.3 F L 09/15/18 14:40 Pulse Rate 101 H 09/15/18 14:40 Respiratory Rate 22 H 09/15/18 14:40 Blood Pressure 109/80 09/15/18 14:40 O2 Sat by Pulse Oximetry (%) 97 09/15/18 09:00 HENT: Yes: WNL Neck: Yes: Supple Cardiovascular: Yes: Regular Rate and Rhythm Respiratory: Yes: CTA Bilaterally Gastrointestinal: Yes: Normal Bowel Sounds Extremities: Yes: WNL Edema: No Peripheral Pulses WNL: Yes Neurological: Yes: Alert, Oriented Labs: CBC, BMP 09/13/18 06:45 09/15/18 06:30 INR, PTT INR 1.09 (0.83-1.09) 09/11/18 13:23 Problem List - Problems (1) Diabetes Assessment/Plan: monitor bgm Code(s): E11.9 - TYPE 2 DIABETES MELLITUS WITHOUT COMPLICATIONS Qualifiers: Diabetes mellitus type: other specified (including RANDA) Diabetes mellitus jail insulin use: unspecified exterminator helper insulin use status Diabetes mellitus complication status: with unspecified complications Qualified Code(s) : E13.8 - Other specified diabetes mellitus with unspecified complications (2) Wound infection Assessment/Plan: iv abx id on board Code(s): T14.8XXA - OTHER INJURY OF UNSPECIFIED BODY REGION, INITIAL ENCOUNTER; L08.9 - LOCAL INFECTION OF THE SKIN AND SUBCUTANEOUS TISSUE, UNSP (3) Rash and nonspecific skin eruption Assessment/Plan: on atarax skin biopsy done results pending on steroids Code(s): R21 - RASH AND OTHER NONSPECIFIC SKIN ERUPTION
[2018-09-16] MEDS: INSULIN SLIDING SCALE (NOVOLOG) 1 VIAL SQ SCH ×4 (06:00→21:51)
[2018-09-16] MEDS: TORSEMIDE 20 MG TABLET (FP) PO SCH (09:08)
[2018-09-16] MEDS: ASPIRIN COATED 81 MG TABLET.EC PO SCH (09:08)
[2018-09-16] MEDS: HEPARIN NA (PORCINE) 5,000 UNITS/ML 1ML VIAL SQ SCH ×2 (09:08→21:51)
[2018-09-16] MEDS: predniSONE 20 MG TABLET (UD) PO SCH (09:08)
[2018-09-16] MEDS: TRIAMCINOLONE ACET 0.1% CREAM 15 GM TUBE TP SCH ×2 (09:09→21:54)
[2018-09-16] MEDS ORDERED: PT OWN MED DRAWER 7, Y5N ONE ×3 (09:10→16:41)
[2018-09-16] MEDS: ERTAPENEM SODIUM 1 GM in SODIUM CHLORIDE 50 ML IVPB SCH (09:22)
[2018-09-16] MEDS ORDERED: INSULIN (NOVOLOG) ASPART 100 UNITS/ML 10ML VIAL ONE (11:59)
--- NOTE | 2018-09-16 12:36 | PN ---
Progress Note, Physician History of Present Illness: patient doing well no new issues rash present - Current Medication List Current Medications: Active Medications Acetaminophen (Ofirmev Injection -) 1,000 mg IVPB Q6H PRN PRN Reason: FEVER Last Admin: 09/11/18 20:02 Dose: 1,000 mg Aspirin (Ecotrin -) 81 mg PO DAILY [facility] Last Admin: 09/16/18 09:08 Dose: 81 mg Heparin Sodium (Porcine) (Heparin -) 5,000 unit SQ BID [facility] Last Admin: 09/16/18 09:08 Dose: 5,000 unit Hydroxyzine HCl (Atarax -) 25 mg PO TID PRN PRN Reason: FOR ITCHING Last Admin: 09/13/18 21:04 Dose: 25 mg Ertapenem 1 gm/ Sodium (Chloride) 50 mls @ 100 mls/hr IVPB DAILY [facility] Last Admin: 09/16/18 09:22 Dose: 100 mls/hr Insulin Aspart (Novolog Vial Sliding Scale -) 1 vial SQ ACHS [facility]; Protocol Last Admin: 09/16/18 12:10 Dose: 8 units Prednisone (Deltasone -) 40 mg PO DAILY [facility] Last Admin: 09/16/18 09:08 Dose: 40 mg Torsemide (Demadex -) 20 mg PO DAILY [facility] Last Admin: 09/16/18 09:08 Dose: 20 mg Triamcinolone Acetonide (Aristocort 0.1% Cream -) 1 applic TP BID [facility] Last Admin: 09/16/18 09:09 Dose: 1 applic - Objective Vital Signs: Vital Signs Temperature 97.1 F L 09/16/18 09:10 Pulse Rate 101 H 09/16/18 09:10 Respiratory Rate 18 09/16/18 09:10 Blood Pressure 126/73 09/16/18 09:10 O2 Sat by Pulse Oximetry (%) 97 09/15/18 09:00 Constitutional: Yes: No Distress, Calm Cardiovascular: Yes: Regular Rate and Rhythm Respiratory: Yes: Regular, CTA Bilaterally Gastrointestinal: Yes: Normal Bowel Sounds, Soft Musculoskeletal: Yes: WNL Extremities: Yes: Other Neurological: Yes: Alert, Oriented Psychiatric: Yes: Alert, Oriented Labs: CBC, BMP 09/13/18 06:45 09/15/18 17:30 INR, PTT INR 1.09 (0.83-1.09) 09/11/18 13:23 Assessment/Plan osteo of the rt foot drug rash renal failure facial swelling plan patient needs to be on vanco 750 mg daily ertapenam 1 gm daily cbc bmp esr crp weekly
[2018-09-16] MEDS ORDERED: ACETAMINOPHEN 325 MG TABLET (FP) PO PRN (14:07)
--- NOTE | 2018-09-16 14:09 | PN ---
Progress Note, Physician History of Present Illness: feeling better - Current Medication List Current Medications: Active Medications Acetaminophen (Ofirmev Injection -) 1,000 mg IVPB Q6H PRN PRN Reason: FEVER Last Admin: 09/11/18 20:02 Dose: 1,000 mg Acetaminophen (Tylenol -) 650 mg PO Q6H PRN PRN Reason: PAIN 1-5 Aspirin (Ecotrin -) 81 mg PO DAILY [facility] Last Admin: 09/16/18 09:08 Dose: 81 mg Heparin Sodium (Porcine) (Heparin -) 5,000 unit SQ BID [facility] Last Admin: 09/16/18 09:08 Dose: 5,000 unit Hydroxyzine HCl (Atarax -) 25 mg PO TID PRN PRN Reason: FOR ITCHING Last Admin: 09/13/18 21:04 Dose: 25 mg Ertapenem 1 gm/ Sodium (Chloride) 50 mls @ 100 mls/hr IVPB DAILY [facility] Last Admin: 09/16/18 09:22 Dose: 100 mls/hr Vancomycin HCl 750 mg/ (Dextrose) 250 mls @ 250 mls/hr IVPB Q24H [facility]; Protocol Insulin Aspart (Novolog Vial Sliding Scale -) 1 vial SQ ACHS [facility]; Protocol Last Admin: 09/16/18 12:10 Dose: 8 units Prednisone (Deltasone -) 40 mg PO DAILY [facility] Last Admin: 09/16/18 09:08 Dose: 40 mg Torsemide (Demadex -) 20 mg PO DAILY [facility] Last Admin: 09/16/18 09:08 Dose: 20 mg Triamcinolone Acetonide (Aristocort 0.1% Cream -) 1 applic TP BID [facility] Last Admin: 09/16/18 09:09 Dose: 1 applic - Objective Vital Signs: Vital Signs Temperature 97.1 F L 09/16/18 09:10 Pulse Rate 101 H 09/16/18 09:10 Respiratory Rate 18 09/16/18 09:10 Blood Pressure 126/73 09/16/18 09:10 O2 Sat by Pulse Oximetry (%) 97 09/15/18 09:00 Constitutional: Yes: No Distress HENT: Yes: Atraumatic Neck: Yes: Supple Cardiovascular: Yes: Regular Rate and Rhythm Respiratory: Yes: CTA Bilaterally Gastrointestinal: Yes: Normal Bowel Sounds Extremities: Yes: WNL Edema: No Peripheral Pulses WNL: Yes Neurological: Yes: Alert, Oriented Labs: CBC, BMP 09/13/18 06:45 09/15/18 17:30 INR, PTT INR 1.09 (0.83-1.09) 09/11/18 13:23 Problem List - Problems (1) Diabetes Assessment/Plan: monitor bgm insulin sliding scale Code(s): E11.9 - TYPE 2 DIABETES MELLITUS WITHOUT COMPLICATIONS Qualifiers: Diabetes mellitus type: other specified (including RANDA) Diabetes mellitus correction insulin use: unspecified manager long term care insulin use status Diabetes mellitus complication status: with unspecified complications Qualified Code(s) : E13.8 - Other specified diabetes mellitus with unspecified complications (2) Wound infection Assessment/Plan: iv abx id on board Code(s): T14.8XXA - OTHER INJURY OF UNSPECIFIED BODY REGION, INITIAL ENCOUNTER; L08.9 - LOCAL INFECTION OF THE SKIN AND SUBCUTANEOUS TISSUE, UNSP (3) Rash and nonspecific skin eruption Assessment/Plan: on atarax skin biopsy done results pending on steroids Code(s): R21 - RASH AND OTHER NONSPECIFIC SKIN ERUPTION
[2018-09-16 15:05] VITALS: BMI 26.3
--- NOTE | 2018-09-16 15:44 | PN ---
Progress Note, Physician History of Present Illness: Pt seen and examined at bedside. He feels that rash is improving. - Current Medication List Current Medications: Active Medications Acetaminophen (Tylenol -) 650 mg PO Q6H PRN PRN Reason: FEVER Aspirin (Ecotrin -) 81 mg PO DAILY [facility] Last Admin: 09/16/18 09:08 Dose: 81 mg Heparin Sodium (Porcine) (Heparin -) 5,000 unit SQ BID [facility] Last Admin: 09/16/18 09:08 Dose: 5,000 unit Hydroxyzine HCl (Atarax -) 25 mg PO TID PRN PRN Reason: FOR ITCHING Last Admin: 09/13/18 21:04 Dose: 25 mg Ertapenem 1 gm/ Sodium (Chloride) 50 mls @ 100 mls/hr IVPB DAILY [facility] Last Admin: 09/16/18 09:22 Dose: 100 mls/hr Vancomycin HCl 750 mg/ (Dextrose) 250 mls @ 250 mls/hr IVPB Q24H [facility]; Protocol Insulin Aspart (Novolog Vial Sliding Scale -) 1 vial SQ ACHS [facility]; Protocol Last Admin: 09/16/18 12:10 Dose: 8 units Prednisone (Deltasone -) 40 mg PO DAILY [facility] Last Admin: 09/16/18 09:08 Dose: 40 mg Torsemide (Demadex -) 20 mg PO DAILY [facility] Last Admin: 09/16/18 09:08 Dose: 20 mg Triamcinolone Acetonide (Aristocort 0.1% Cream -) 1 applic TP BID [facility] Last Admin: 09/16/18 09:09 Dose: 1 applic - Objective Vital Signs: Vital Signs Temperature 97.5 F L 09/16/18 14:25 Pulse Rate 123 H 09/16/18 14:25 Respiratory Rate 22 H 09/16/18 14:25 Blood Pressure 137/77 09/16/18 14:25 O2 Sat by Pulse Oximetry (%) 97 09/15/18 09:00 Constitutional: Yes: Calm Eyes: Yes: Conjunctiva Clear HENT: Yes: Atraumatic Neck: Yes: Supple Cardiovascular: Yes: S1, S2 Respiratory: Yes: CTA Bilaterally Gastrointestinal: Yes: Soft Genitourinary: Yes: WNL Musculoskeletal: Yes: WNL Extremities: Yes: WNL Edema: No Neurological: Yes: Oriented Psychiatric: Yes: Oriented Labs: CBC, BMP 09/13/18 06:45 09/15/18 17:30 INR, PTT INR 1.09 (0.83-1.09) 09/11/18 13:23 Problem List - Problems (1) CKD (chronic kidney disease) Code(s): N18.9 - CHRONIC KIDNEY DISEASE, UNSPECIFIED (2) Diabetes Code(s): E11.9 - TYPE 2 DIABETES MELLITUS WITHOUT COMPLICATIONS Qualifiers: Diabetes mellitus type: other specified (including RANDA) Diabetes mellitus half-way insulin use: 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 CKD 2. hyperkalemia 3. rash 4. DM 5. HTN Plan - called pathology, skin biopsy not ready yet - check bmp - monitor bp - jose on hold - ua negative for active sediment, neg blood or protein
[2018-09-16] MEDS ORDERED: VANCOMYCIN 750 MG in DEXTROSE 5%-WATER - 250 ML IVPB SCH (16:00)
[2018-09-17] MEDS: INSULIN SLIDING SCALE (NOVOLOG) 1 VIAL SQ SCH ×2 (06:19→12:11)
[2018-09-17 09:05] VITALS: BP 125/83; PULSE 94; TEMP 97.9
[2018-09-17] MEDS: ERTAPENEM SODIUM 1 GM in SODIUM CHLORIDE 50 ML IVPB SCH (11:49)
[2018-09-17] MEDS: predniSONE 20 MG TABLET (UD) PO SCH (11:50)
[2018-09-17] MEDS: TORSEMIDE 20 MG TABLET (FP) PO SCH (11:50)
[2018-09-17] MEDS: HEPARIN NA (PORCINE) 5,000 UNITS/ML 1ML VIAL SQ SCH (11:50)
[2018-09-17] MEDS: ASPIRIN COATED 81 MG TABLET.EC PO SCH (11:50)
[2018-09-17] MEDS: TRIAMCINOLONE ACET 0.1% CREAM 15 GM TUBE TP SCH (12:12)
--- NOTE | 2018-09-17 12:14 | PN ---
Progress Note, Physician History of Present Illness: patient stable no new issues rash has improved - Current Medication List Current Medications: Active Medications Acetaminophen (Tylenol -) 650 mg PO Q6H PRN PRN Reason: FEVER Aspirin (Ecotrin -) 81 mg PO DAILY [facility] Last Admin: 09/17/18 11:50 Dose: 81 mg Heparin Sodium (Porcine) (Heparin -) 5,000 unit SQ BID [facility] Last Admin: 09/17/18 11:50 Dose: 5,000 unit Hydroxyzine HCl (Atarax -) 25 mg PO TID PRN PRN Reason: FOR ITCHING Last Admin: 09/13/18 21:04 Dose: 25 mg Ertapenem 1 gm/ Sodium (Chloride) 50 mls @ 100 mls/hr IVPB DAILY [facility] Last Admin: 09/17/18 11:49 Dose: 100 mls/hr Vancomycin HCl 750 mg/ (Dextrose) 250 mls @ 250 mls/hr IVPB Q24H [facility]; Protocol Last Admin: 09/16/18 17:15 Dose: 250 mls/hr Insulin Aspart (Novolog Vial Sliding Scale -) 1 vial SQ ACHS [facility]; Protocol Last Admin: 09/17/18 12:11 Dose: 6 units Prednisone (Deltasone -) 40 mg PO DAILY [facility] Last Admin: 09/17/18 11:50 Dose: 40 mg Torsemide (Demadex -) 20 mg PO DAILY [facility] Last Admin: 09/17/18 11:50 Dose: 20 mg Triamcinolone Acetonide (Aristocort 0.1% Cream -) 1 applic TP BID [facility] Last Admin: 09/17/18 12:12 Dose: 1 applic - Objective Vital Signs: Vital Signs Temperature 97.9 F 09/17/18 08:55 Pulse Rate 94 H 09/17/18 08:55 Respiratory Rate 18 09/17/18 08:55 Blood Pressure 125/83 09/17/18 08:55 O2 Sat by Pulse Oximetry (%) 97 09/16/18 21:00 Constitutional: Yes: No Distress, Calm Cardiovascular: Yes: Regular Rate and Rhythm Respiratory: Yes: Regular, CTA Bilaterally Gastrointestinal: Yes: Normal Bowel Sounds, Soft Musculoskeletal: Yes: WNL Extremities: Yes: WNL Neurological: Yes: Alert, Oriented Psychiatric: Yes: Alert, Oriented Labs: CBC, BMP 09/13/18 06:45 09/15/18 17:30 INR, PTT INR 1.09 (0.83-1.09) 09/11/18 13:23 Assessment/Plan osteo of the rt foot drug rash renal failure facial swelling plan patient needs to be on vanco 750 mg daily ertapenam 1 gm daily cbc bmp esr crp weekly rest as per the team
--- NOTE | 2018-09-17 12:51 | PN ---
Progress Note, Physician History of Present Illness: Pt seen and examined at bedside. He is awake and appears comfortable. He denies shortness of breath. - Current Medication List Current Medications: Active Medications Acetaminophen (Tylenol -) 650 mg PO Q6H PRN PRN Reason: FEVER Aspirin (Ecotrin -) 81 mg PO DAILY [facility] Last Admin: 09/17/18 11:50 Dose: 81 mg Heparin Sodium (Porcine) (Heparin -) 5,000 unit SQ BID [facility] Last Admin: 09/17/18 11:50 Dose: 5,000 unit Hydroxyzine HCl (Atarax -) 25 mg PO TID PRN PRN Reason: FOR ITCHING Last Admin: 09/13/18 21:04 Dose: 25 mg Ertapenem 1 gm/ Sodium (Chloride) 50 mls @ 100 mls/hr IVPB DAILY [facility] Last Admin: 09/17/18 11:49 Dose: 100 mls/hr Vancomycin HCl 750 mg/ (Dextrose) 250 mls @ 250 mls/hr IVPB Q24H [facility]; Protocol Last Admin: 09/16/18 17:15 Dose: 250 mls/hr Insulin Aspart (Novolog Vial Sliding Scale -) 1 vial SQ ACHS [facility]; Protocol Last Admin: 09/17/18 12:11 Dose: 6 units Prednisone (Deltasone -) 40 mg PO DAILY [facility] Last Admin: 09/17/18 11:50 Dose: 40 mg Torsemide (Demadex -) 20 mg PO DAILY [facility] Last Admin: 09/17/18 11:50 Dose: 20 mg Triamcinolone Acetonide (Aristocort 0.1% Cream -) 1 applic TP BID [facility] Last Admin: 09/17/18 12:12 Dose: 1 applic - Objective Vital Signs: Vital Signs Temperature 97.9 F 09/17/18 08:55 Pulse Rate 94 H 09/17/18 08:55 Respiratory Rate 18 09/17/18 08:55 Blood Pressure 125/83 09/17/18 08:55 O2 Sat by Pulse Oximetry (%) 97 09/16/18 21:00 Constitutional: Yes: Calm Eyes: Yes: Conjunctiva Clear HENT: Yes: Atraumatic Neck: Yes: Supple Cardiovascular: Yes: S1, S2 Respiratory: Yes: CTA Bilaterally Gastrointestinal: Yes: Soft Genitourinary: Yes: WNL Musculoskeletal: Yes: WNL Edema: No Integumentary: Yes: Rash Neurological: Yes: Oriented Psychiatric: Yes: Oriented Labs: CBC, BMP 09/13/18 06:45 09/15/18 17:30 INR, PTT INR 1.09 (0.83-1.09) 09/11/18 13:23 Problem List - Problems (1) CKD (chronic kidney disease) Code(s): N18.9 - CHRONIC KIDNEY DISEASE, UNSPECIFIED (2) Diabetes Code(s): E11.9 - TYPE 2 DIABETES MELLITUS WITHOUT COMPLICATIONS Qualifiers: Diabetes mellitus type: other specified (including RANDA) Diabetes mellitus [facility] insulin use: unspecified [facility] insulin use status Diabetes mellitus complication status: with unspecified complications Qualified Code(s) : E13.8 - Other specified diabetes mellitus with unspecified complications (3) Rash and nonspecific skin eruption Code(s): R21 - RASH AND OTHER NONSPECIFIC SKIN ERUPTION Assessment/Plan Current Medications Generic Name Dose Route Start Last Admin Trade Name Freq PRN Reason Stop Dose Admin Acetaminophen 650 mg 09/16/18 14:07 Tylenol - PO Q6H PRN FEVER Aspirin 81 mg 09/12/18 10:00 09/17/18 11:50 Ecotrin - PO 81 mg DAILY ANGELICA Administration Heparin Sodium (Porcine) 5,000 unit 09/11/18 22:00 09/17/18 11:50 Heparin - SQ 5,000 unit BID ANGELICA Administration Hydroxyzine HCl 25 mg 09/11/18 19:51 09/13/18 21:04 Atarax - PO 25 mg TID PRN Administration FOR ITCHING Ertapenem 1 gm/ Sodium 50 mls @ 100 mls/hr 09/15/18 14:30 09/17/18 11:49 Chloride IVPB 100 mls/hr DAILY ANGELICA Administration Vancomycin HCl 750 mg/ 250 mls @ 250 mls/hr 09/16/18 16:00 09/16/18 17:15 Dextrose IVPB 250 mls/hr Q24H ANGELICA Administration Protocol Insulin Aspart 1 vial 09/13/18 16:30 09/17/18 12:11 Novolog Vial Sliding Scale - SQ 6 units ACHS ANGELICA Administration Protocol Prednisone 40 mg 09/13/18 11:45 09/17/18 11:50 Deltasone - PO 40 mg DAILY ANG[facility]ICA Administration Torsemide 20 mg 09/12/18 10:00 09/17/18 11:50 Demadex - PO 20 mg DAILY [facility] Administration Triamcinolone Acetonide 1 applic 09/13/18 12:15 09/17/18 12:12 Aristocort 0.1% Cream - TP 1 applic BID ANGELICA Administration Impression 1. CKD 2. hyperkalemia 3. rash 4. DM 5. HTN Plan - follow up biopsy - monitor renal function - no new labs - monitor bp - jose on hold
--- NOTE | 2018-09-17 16:51 | DS ---
Physical Examination Vital Signs: Vital Signs Temperature 97.9 F 09/17/18 10:00 Pulse Rate 94 H 09/17/18 10:00 Respiratory Rate 18 09/17/18 10:00 Blood Pressure 125/83 09/17/18 10:00 O2 Sat by Pulse Oximetry (%) 99 09/17/18 09:00 Constitutional: Yes: No Distress HENT: Yes: Atraumatic Neck: Yes: Supple Cardiovascular: Yes: Regular Rate and Rhythm Respiratory: Yes: CTA Bilaterally Gastrointestinal: Yes: Normal Bowel Sounds Extremities: Yes: WNL Edema: No Peripheral Pulses WNL: Yes Neurological: Yes: Alert, Oriented Labs: CBC, BMP 09/13/18 06:45 09/15/18 17:30 Discharge Summary Reason For Visit: LOCAL INFECTION OF WOUND,DIABETES MELLITUS Condition: Stable - Instructions Diet, Activity, Other Instructions: ANTIBIOTICS PER ID Referrals: Madison Maravilla MD [Staff Physician] - Arnold Bruce MD [Staff Physician] - Tyshawn Reynolds MD [Staff Physician] - Gennaro Noble MD [Staff Physician] - Disposition: HOME - Home Medications Comprehensive Discharge Medication List: Ambulatory Orders Torsemide 20 mg PO DAILY 08/18/18 Aspirin Coated [Ecotrin -] 81 mg PO DAILY 09/01/18 Ertapenem Sodium [Invanz -] 1 gm IVPB DAILY #7 vial 09/16/18 Prednisone 10 mg PO ASDIR #30 tablet 09/16/18 Triamcinolone 0.1% Cream [Aristocort 0.1% Cream -] 1 applic TP BID #1 applic 11/28 Vancomycin 750 mg IVPB Q24H #7 vial 09/16/18 dc home fu id and pmd
--- NOTE | 2018-09-23 17:57 | PATH ---
Surgical Pathology Report Patient Name: FRAZANA RUBALCAVA Med. Rec. #: [id number] /Age/Gender: 1960 (Age: 57) / M Account: [id number] Location: [address] [place] [address]/[facility] Taken: 09/13/2018 Received: 09/15/2018 Reported: 09/23/2018 Physicians: Alejandra Belle M.D. 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 Comments In addition to spongiosis, there are also a few necrotic keratinocytes in the epidermis. In the context of an acute, widespread eruption, this is probably a spongiotic drug eruption. The histologic differential diagnosis includes an eczematous dermatitis such as allergic contact dermatitis or atopic dermatitis. Case sent for consultation to Dr. Luis Barcenas from [facility], [place], [place] ([id number]), the diagnosis above reflects his opinion. Electronically Signed Leyla Barton M.D. Microscopic Description There is psoriasiform epidermal hyperplasia with spongiosis and mounds of parakeratosis. There is a perivascular infiltrate of small lymphocytes associated with eosinophils and a small number of neutrophils. There are a few individual necrotic keratinocytes in the epidermis. Gross Description eceived in formalin, labeled with the patient's name and indicated on the requisition to be a skin biopsy from the left inner forearm, is a 0.6 x 0.3 cm wing skin shave. The epidermal surface is grossly unremarkable. The base is inked green and the specimen is submitted in toto in one cassette. 09/15/2018 [facility]09/15/2018
== END 2018-09-17 15:32 | disposition home or self-care (01) | DRG 638 ==
LOC: JER 11:46 → JERBED 14:06 → J5S 15:28 → OBSVTOIN 17:05
PROVIDERS: ADMIT Internal Medicine; ATTEND Internal Medicine
PROC: 0HBCXZX Excision of Left Upper Arm Skin, External Approach, Diagnostic (ICD-10-PCS; principal; 2018-09-13)
PROC: 0JH63XZ Insertion of Tunneled Vascular Access Device into Chest Subcutaneous Tissue and Fascia, Percutaneous Approach (ICD-10-PCS; 2018-09-16)
DX: E11.69 Type 2 diabetes mellitus with other specified complication (principal); L97.518 Non-pressure chronic ulcer of other part of right foot with other specified severity; M86.8X7 Other osteomyelitis, ankle and foot; E11.621 Type 2 diabetes mellitus with foot ulcer; R21 Rash and other nonspecific skin eruption; L08.9 Local infection of the skin and subcutaneous tissue, unspecified; I12.9 Hypertensive chronic kidney disease with stage 1 through stage 4 chronic kidney disease, or unspecified chronic kidney disease; E11.22 Type 2 diabetes mellitus with diabetic chronic kidney disease; N18.9 Chronic kidney disease, unspecified; E87.5 Hyperkalemia; R60.9 Edema, unspecified; Z95.0 Presence of cardiac pacemaker; Z87.891 Personal history of nicotine dependence; Z87.442 Personal history of urinary calculi; Z79.4 Long term (current) use of insulin
CPT/HCPCS: 36415; 36558; 71046-TC-FY; 73610-TC-LT-FY; 73630-TC-LT; 73630-TC-RT-FY; 76775-TC; 77001-TC-FY; 80048; 80053; 81003; 82550; 82947; 82962; 83605; 84484; 85025; 85610; 85651; 85730; 86140; 87040; 87070; 87077; 87086; 87205; 88305-TC; 99283-25; C1751; G0378; G0463-25; G0480; J0131; J1644; J7030

== ENCOUNTER 2018-09-18 09:39 | Day surgery (SDC) | payer OTHER ==
[2018-09-18] MEDS ORDERED: VANCOMYCIN 750 MG in DEXTROSE 5%-WATER - 250 ML IVPB ONE (10:30)
[2018-09-18] MEDS ORDERED: ERTAPENEM SODIUM 1 GM in SODIUM CHLORIDE 50 ML IVPB ONE (10:30)
[2018-09-18 15:07] VITALS: TEMP 98
[2018-09-18 15:10] VITALS: BP 111/67; PULSE 77
== END 2018-09-18 13:00 | disposition home or self-care (01) ==
LOC: JINFUSION 09:39 → J7W 09:40 → JINFUSION 13:00
PROVIDERS: ATTEND Internal Medicine Infectious Disease
DX: E11.621 Type 2 diabetes mellitus with foot ulcer (principal); L97.518 Non-pressure chronic ulcer of other part of right foot with other specified severity; M86.8X7 Other osteomyelitis, ankle and foot; Z79.4 Long term (current) use of insulin
CPT/HCPCS: 96365; 96366; 96367

== ENCOUNTER 2018-09-19 09:11 | Day surgery (SDC) | payer OTHER ==
[2018-09-19] MEDS ORDERED: VANCOMYCIN 750 MG in DEXTROSE 5%-WATER - 250 ML IVPB ONE (10:00)
[2018-09-19] MEDS ORDERED: ERTAPENEM SODIUM 1 GM in SODIUM CHLORIDE 50 ML IVPB ONE (10:00)
[2018-09-19 10:23] VITALS: TEMP 98
[2018-09-19 11:57] VITALS: BP 139/60; PULSE 88
== END 2018-09-19 12:01 | disposition home or self-care (01) ==
LOC: JINFUSION 09:11
PROVIDERS: ATTEND Internal Medicine Infectious Disease
DX: E11.621 Type 2 diabetes mellitus with foot ulcer (principal); L97.518 Non-pressure chronic ulcer of other part of right foot with other specified severity; M86.8X7 Other osteomyelitis, ankle and foot; Z79.4 Long term (current) use of insulin
CPT/HCPCS: 96365; 96366; 96367

== ENCOUNTER 2018-09-20 09:10 | Day surgery (SDC) | payer OTHER ==
[2018-09-20] MEDS ORDERED: VANCOMYCIN 750 MG in DEXTROSE 5%-WATER - 250 ML IVPB ONE (09:45)
[2018-09-20] MEDS ORDERED: ERTAPENEM SODIUM 1 GM in SODIUM CHLORIDE 50 ML IVPB ONE (09:45)
[2018-09-20 10:17] VITALS: TEMP 97.5
[2018-09-20 12:06] VITALS: BP 144/90; PULSE 74
== END 2018-09-20 14:58 | disposition home or self-care (01) ==
LOC: J7W 09:10 → JINFUSION 09:10
PROVIDERS: ATTEND Internal Medicine Infectious Disease
DX: E11.621 Type 2 diabetes mellitus with foot ulcer (principal); L97.518 Non-pressure chronic ulcer of other part of right foot with other specified severity; M86.8X7 Other osteomyelitis, ankle and foot; Z79.4 Long term (current) use of insulin
CPT/HCPCS: 96365; 96366; 96367

== ENCOUNTER 2018-09-22 09:26 | Day surgery (SDC) | payer OTHER ==
[2018-09-22 10:06] LABS: HEMATOCRIT 39.9 % (35.4-49); HEMOGLOBIN 12.5 GM/dL (11.7-16.9); MCH 22.6 pg (25.7-33.7); MCHC 31.3 g/dl (32.0-35.9); MEAN CELL VOLUME 72.2 fl (80-96); MEAN PLT VOLUME 7.6 fl (7.5-11.1); PLATELET COUNT 386 K/MM3 (134-434); RBC 5.52 M/mm3 (4.00-5.60); RDW 15.2 % (11.9-15.9); WHITE BLOOD COUNT 15.4 K/mm3 (4.0-10.0)
[2018-09-22 10:29] LABS: CALCIUM 9.5 mg/dL (8.5-10.1); CREATININE 1.7 mg/dL (0.55-1.3); POTASSIUM 4.9 mmol/L (3.5-5.1)
[2018-09-22 10:30] VITALS: TEMP 98.3
[2018-09-22] MEDS ORDERED: VANCOMYCIN 750 MG in SODIUM CHLORIDE 250 ML IVPB ONE (11:15)
[2018-09-22 11:24] LABS: ERYTHROCYTE SEDIMENTATION RATE 21 mm/hr (0-20)
[2018-09-22 12:50] VITALS: BP 130/74; PULSE 79
== END 2018-09-22 12:50 | disposition home or self-care (01) ==
LOC: JINFUSION 09:26
PROVIDERS: ATTEND Internal Medicine Infectious Disease
DX: E11.621 Type 2 diabetes mellitus with foot ulcer (principal); L97.518 Non-pressure chronic ulcer of other part of right foot with other specified severity; M86.8X7 Other osteomyelitis, ankle and foot; Z79.4 Long term (current) use of insulin
CPT/HCPCS: 36415; 80048; 85027; 85651; 86140; 96365; 96366; 96367; G0480

== ENCOUNTER 2018-09-23 09:35 | Day surgery (SDC) | payer OTHER ==
[~2018-09-23 09:35] MED LIST changes: +VANCOMYCIN 750 MG in SODIUM CHLORIDE 250 ML IVPB ONE
[2018-09-23 10:23] VITALS: TEMP 97.5
[2018-09-23 13:09] VITALS: BP 138/89; PULSE 80
== END 2018-09-23 12:15 | disposition home or self-care (01) ==
LOC: JINFUSION 09:35
PROVIDERS: ATTEND Internal Medicine Infectious Disease
DX: E11.621 Type 2 diabetes mellitus with foot ulcer (principal); L97.518 Non-pressure chronic ulcer of other part of right foot with other specified severity; M86.8X7 Other osteomyelitis, ankle and foot; Z79.4 Long term (current) use of insulin
CPT/HCPCS: 96365; 96366; 96367

== ENCOUNTER 2018-09-24 09:54 | Day surgery (SDC) | payer OTHER ==
[~2018-09-24 09:54] MED LIST changes: +VANCOMYCIN 750 MG in DEXTROSE 5%-WATER - 250 ML IVPB ONE; -VANCOMYCIN 750 MG in SODIUM CHLORIDE 250 ML IVPB ONE
[2018-09-24 10:57] VITALS: TEMP 98.3
[2018-09-24 12:49] VITALS: BP 140/84; PULSE 71
== END 2018-09-24 12:35 | disposition home or self-care (01) ==
LOC: JINFUSION 09:54
PROVIDERS: ATTEND Internal Medicine Infectious Disease
DX: E11.621 Type 2 diabetes mellitus with foot ulcer (principal); L97.518 Non-pressure chronic ulcer of other part of right foot with other specified severity; M86.8X7 Other osteomyelitis, ankle and foot; Z79.4 Long term (current) use of insulin
CPT/HCPCS: 96365; 96366; 96367

== ENCOUNTER 2018-09-25 09:23 | Day surgery (SDC) | payer OTHER ==
[2018-09-25 11:24] VITALS: BP 139/78; PULSE 89; TEMP 98.6
[2018-09-25] MEDS ORDERED: ERTAPENEM SODIUM 1 GM in SODIUM CHLORIDE 50 ML IVPB ONE (12:15)
[2018-09-25] MEDS ORDERED: VANCOMYCIN 750 MG in DEXTROSE 5%-WATER - 250 ML IVPB ONE (12:15)
== END 2018-09-25 12:40 | disposition home or self-care (01) ==
LOC: JINFUSION 09:23
PROVIDERS: ATTEND Internal Medicine Infectious Disease
DX: E11.621 Type 2 diabetes mellitus with foot ulcer (principal); L97.518 Non-pressure chronic ulcer of other part of right foot with other specified severity; M86.8X7 Other osteomyelitis, ankle and foot; Z79.4 Long term (current) use of insulin
CPT/HCPCS: 96365; 96366; 96367; G0463

== ENCOUNTER 2018-09-26 09:21 | Day surgery (SDC) | payer OTHER ==
[~2018-09-26 09:21] MED LIST changes: -VANCOMYCIN 750 MG in DEXTROSE 5%-WATER - 250 ML IVPB ONE; +VANCOMYCIN 750 MG in SODIUM CHLORIDE 250 ML IVPB ONE
[2018-09-26 15:13] VITALS: BP 127/79; PULSE 85; TEMP 98
[2018-09-27] MEDS ORDERED: VANCOMYCIN 750 MG in SODIUM CHLORIDE 250 ML IVPB ONE (10:00)
== END 2018-09-26 12:28 | disposition home or self-care (01) ==
LOC: JINFUSION 09:21
PROVIDERS: ATTEND Internal Medicine Infectious Disease
DX: E11.621 Type 2 diabetes mellitus with foot ulcer (principal); L97.518 Non-pressure chronic ulcer of other part of right foot with other specified severity; M86.8X7 Other osteomyelitis, ankle and foot; Z79.4 Long term (current) use of insulin
CPT/HCPCS: 96365; 96366; 96367

== ENCOUNTER 2018-09-27 08:14 | Day surgery (SDC) | payer OTHER ==
[2018-09-27] MEDS ORDERED: ERTAPENEM SODIUM 1 GM in SODIUM CHLORIDE 50 ML IVPB ONE (09:30)
[2018-09-27] MEDS ORDERED: VANCOMYCIN 750 MG in SODIUM CHLORIDE 250 ML IVPB ONE (10:00)
[2018-09-27 13:42] VITALS: BP 125/75; PULSE 86
== END 2018-09-27 13:47 | disposition home or self-care (01) ==
LOC: JINFUSION 08:14 → J7W 08:19 → JINFUSION 13:47
PROVIDERS: ATTEND Internal Medicine Infectious Disease
DX: E11.621 Type 2 diabetes mellitus with foot ulcer (principal); L97.518 Non-pressure chronic ulcer of other part of right foot with other specified severity; M86.8X7 Other osteomyelitis, ankle and foot; Z79.4 Long term (current) use of insulin

== ENCOUNTER 2018-09-28 08:11 | Day surgery (SDC) | payer OTHER ==
[2018-09-28] MEDS ORDERED: VANCOMYCIN 750 MG in SODIUM CHLORIDE 250 ML IVPB ONE (09:00)
[2018-09-28] MEDS ORDERED: ERTAPENEM SODIUM 1 GM in SODIUM CHLORIDE 50 ML IVPB ONE (09:00)
[2018-09-28 12:16] VITALS: BP 129/79; PULSE 77; TEMP 98.4
== END 2018-09-28 10:10 | disposition home or self-care (01) ==
LOC: J7W 08:11 → JINFUSION 08:11
PROVIDERS: ATTEND Internal Medicine Infectious Disease
DX: E11.621 Type 2 diabetes mellitus with foot ulcer (principal); L97.518 Non-pressure chronic ulcer of other part of right foot with other specified severity; M86.8X7 Other osteomyelitis, ankle and foot; Z79.4 Long term (current) use of insulin
CPT/HCPCS: 96365; 96367

== ENCOUNTER → 2018-09-29 | Day surgery (SDC) | payer OTHER ==
[2018-09-29 09:42] LABS: HEMATOCRIT 38.3 % (35.4-49); HEMOGLOBIN 12.2 GM/dL (11.7-16.9); MCH 22.7 pg (25.7-33.7); MCHC 31.8 g/dl (32.0-35.9); MEAN CELL VOLUME 71.2 fl (80-96); MEAN PLT VOLUME 7.5 fl (7.5-11.1); PLATELET COUNT 369 K/MM3 (134-434); RBC 5.39 M/mm3 (4.00-5.60); WHITE BLOOD COUNT 10.4 K/mm3 (4.0-10.0)
[2018-09-29 10:14] LABS: CALCIUM 8.7 mg/dL (8.5-10.1); CREATININE 1.7 mg/dL (0.55-1.3); POTASSIUM 4.6 mmol/L (3.5-5.1)
[2018-09-29 11:19] LABS: ERYTHROCYTE SEDIMENTATION RATE 29 mm/hr (0-20)
[2018-09-29 11:30] VITALS: TEMP 98.8
[2018-09-29 12:45] VITALS: BP 161/93; PULSE 83
== END | disposition home or self-care (01) ==
LOC: JINFUSION 09:10
PROVIDERS: ATTEND Internal Medicine Infectious Disease
DX: E11.621 Type 2 diabetes mellitus with foot ulcer (principal); L97.518 Non-pressure chronic ulcer of other part of right foot with other specified severity; M86.8X7 Other osteomyelitis, ankle and foot; Z79.4 Long term (current) use of insulin
CPT/HCPCS: 36415; 80048; 85027; 85651; 86140; 96365; 96366; 96367

== ENCOUNTER 2018-09-30 09:22 | Day surgery (SDC) | payer OTHER ==
[2018-09-30] MEDS ORDERED: VANCOMYCIN 750 MG in SODIUM CHLORIDE 250 ML IVPB ONE (10:00)
[2018-09-30] MEDS ORDERED: ERTAPENEM SODIUM 1 GM in SODIUM CHLORIDE 50 ML IVPB ONE (10:00)
[2018-09-30 11:57] VITALS: TEMP 98.1
[2018-09-30 12:31] VITALS: BP 134/80; PULSE 70
== END 2018-09-30 12:15 | disposition home or self-care (01) ==
LOC: JINFUSION 09:22
PROVIDERS: ATTEND Internal Medicine Infectious Disease
DX: E11.621 Type 2 diabetes mellitus with foot ulcer (principal); L97.518 Non-pressure chronic ulcer of other part of right foot with other specified severity; M86.8X7 Other osteomyelitis, ankle and foot; Z79.4 Long term (current) use of insulin
CPT/HCPCS: 96365; 96366; 96367; G0480

== ENCOUNTER 2018-10-01 08:52 | Day surgery (SDC) | payer OTHER | END 2018-10-01 11:50 | disposition home health service (06) | LOC: JINFUSION 08:52 ==

== ENCOUNTER 2018-10-02 09:05 | Day surgery (SDC) | payer OTHER | END 2018-10-02 12:20 | disposition home or self-care (01) | LOC: JINFUSION 09:05 ==

== ENCOUNTER 2018-10-03 09:28 | Day surgery (SDC) | payer OTHER | END 2018-10-03 12:35 | disposition home or self-care (01) | LOC: JINFUSION 09:28 ==

== ENCOUNTER 2018-10-04 09:55 | Day surgery (SDC) | payer OTHER | END 2018-10-04 15:15 | disposition home or self-care (01) | LOC: JINFUSION 09:55 → J7W 09:56 → JINFUSION 15:15 ==

== ENCOUNTER 2018-10-05 10:42 | Day surgery (SDC) | payer OTHER | END 2018-10-05 13:45 | disposition home or self-care (01) | LOC: JINFUSION 10:42 → J7W 10:43 → JINFUSION 13:45 ==

== ENCOUNTER 2018-10-06 10:59 | Day surgery (SDC) | payer OTHER | END 2018-10-06 16:13 | disposition home or self-care (01) | LOC: JINFUSION 10:59 → J7W 11:02 → JINFUSION 16:13 ==

== ENCOUNTER 2018-10-07 09:15 | Day surgery (SDC) | payer OTHER ==
[2018-10-07] MEDS ORDERED: VANCOMYCIN 1,000 MG in SODIUM CHLORIDE 250 ML IVPB ONE (10:00)
[2018-10-07] MEDS ORDERED: ERTAPENEM SODIUM 1 GM in SODIUM CHLORIDE 50 ML IVPB ONE (10:00)
[2018-10-07 14:33] VITALS: BP 101/69; PULSE 85; TEMP 98.1
== END 2018-10-07 12:25 | disposition home or self-care (01) ==
LOC: JINFUSION 09:15
PROVIDERS: ATTEND Internal Medicine Infectious Disease
DX: E11.621 Type 2 diabetes mellitus with foot ulcer (principal); L97.518 Non-pressure chronic ulcer of other part of right foot with other specified severity; M86.8X7 Other osteomyelitis, ankle and foot; Z79.4 Long term (current) use of insulin
CPT/HCPCS: 96365; 96366; 96367

== ENCOUNTER 2018-10-08 08:54 | Day surgery (SDC) | payer OTHER ==
[2018-10-08] MEDS ORDERED: ERTAPENEM SODIUM 1 GM in SODIUM CHLORIDE 50 ML IVPB ONE (09:00)
[2018-10-08] MEDS ORDERED: VANCOMYCIN HCL 1,250 MG in SODIUM CHLORIDE 250 ML IVPB ONE (09:00)
[2018-10-08] MEDS ORDERED: ERTAPENEM SODIUM 1 GM VIAL ONE (16:06)
[2018-10-08 16:15] VITALS: PULSE 87
[2018-10-08 18:53] VITALS: BP 140/66; TEMP 98.3
== END 2018-10-08 18:00 | disposition home or self-care (01) ==
LOC: JINFUSION 08:54
PROVIDERS: ATTEND Internal Medicine Infectious Disease
DX: E11.621 Type 2 diabetes mellitus with foot ulcer (principal); L97.518 Non-pressure chronic ulcer of other part of right foot with other specified severity; M86.8X7 Other osteomyelitis, ankle and foot; Z79.4 Long term (current) use of insulin
CPT/HCPCS: 36593; 36598; 96365; 96366; 96367; G0480

== ENCOUNTER 2018-10-09 10:13 | Day surgery (SDC) | payer OTHER ==
[~2018-10-09 10:13] MED LIST changes: -VANCOMYCIN 750 MG in SODIUM CHLORIDE 250 ML IVPB ONE; +VANCOMYCIN HCL 1,250 MG in SODIUM CHLORIDE 250 ML IVPB ONE
[2018-10-09 15:23] VITALS: BP 141/51; PULSE 91; TEMP 97.9
== END 2018-10-09 13:30 | disposition home or self-care (01) ==
LOC: JINFUSION 10:13
PROVIDERS: ATTEND Internal Medicine Infectious Disease
DX: E11.621 Type 2 diabetes mellitus with foot ulcer (principal); L97.518 Non-pressure chronic ulcer of other part of right foot with other specified severity; M86.8X7 Other osteomyelitis, ankle and foot; Z79.4 Long term (current) use of insulin
CPT/HCPCS: 96365; 96366; 96367

== ENCOUNTER 2018-10-10 10:30 | Day surgery (SDC) | payer OTHER | END 2018-10-10 13:16 | disposition home or self-care (01) | LOC: JINFUSION 10:30 ==

== ENCOUNTER 2018-10-11 09:17 | Day surgery (SDC) | payer OTHER ==
[2018-10-11] MEDS ORDERED: ERTAPENEM SODIUM 1 GM in SODIUM CHLORIDE 50 ML IVPB ONE (10:00)
[2018-10-11] MEDS ORDERED: VANCOMYCIN HCL 1,250 MG in SODIUM CHLORIDE 250 ML IVPB ONE (10:00)
[2018-10-11 11:18] VITALS: TEMP 97.5
[2018-10-11 13:29] VITALS: PULSE 85
[2018-10-11 13:40] VITALS: BP 144/83
== END 2018-10-11 14:50 | disposition home or self-care (01) ==
LOC: J7W 09:17 → JINFUSION 09:17
PROVIDERS: ATTEND Internal Medicine Infectious Disease
DX: E11.621 Type 2 diabetes mellitus with foot ulcer (principal); L97.518 Non-pressure chronic ulcer of other part of right foot with other specified severity; M86.8X7 Other osteomyelitis, ankle and foot; Z79.4 Long term (current) use of insulin
CPT/HCPCS: 96365; 96366; 96367

== ENCOUNTER 2018-10-12 10:27 | Day surgery (SDC) | payer OTHER ==
[2018-10-12] MEDS ORDERED: ERTAPENEM SODIUM 1 GM in SODIUM CHLORIDE 50 ML IVPB ONE (11:00)
[2018-10-12] MEDS ORDERED: VANCOMYCIN HCL 1,250 MG in SODIUM CHLORIDE 250 ML IVPB ONE (11:00)
[2018-10-12 11:22] VITALS: TEMP 97.7
[2018-10-12 13:49] VITALS: BP 141/89; PULSE 85
== END 2018-10-12 13:51 | disposition home or self-care (01) ==
LOC: JINFUSION 10:27 → J7W 10:28 → JINFUSION 13:51
PROVIDERS: ATTEND Internal Medicine Infectious Disease
DX: E11.621 Type 2 diabetes mellitus with foot ulcer (principal); L97.518 Non-pressure chronic ulcer of other part of right foot with other specified severity; M86.8X7 Other osteomyelitis, ankle and foot; Z79.4 Long term (current) use of insulin
CPT/HCPCS: 96365; 96366; 96367

== ENCOUNTER 2018-10-13 09:06 | Day surgery (SDC) | payer OTHER ==
[2018-10-13] MEDS ORDERED: ERTAPENEM SODIUM 1 GM in SODIUM CHLORIDE 50 ML IVPB ONE (09:30)
[2018-10-13] MEDS ORDERED: VANCOMYCIN HCL 1,250 MG in SODIUM CHLORIDE 250 ML IVPB ONE (09:30)
[2018-10-13 09:36] LABS: HEMATOCRIT 35.3 % (35.4-49); HEMOGLOBIN 11.2 GM/dL (11.7-16.9); MCH 22.2 pg (25.7-33.7); MCHC 31.6 g/dl (32.0-35.9); MEAN CELL VOLUME 70.1 fl (80-96); PLATELET COUNT 444 K/MM3 (134-434); RBC 5.04 M/mm3 (4.00-5.60); WHITE BLOOD COUNT 6.9 K/mm3 (4.0-10.0)
[2018-10-13 09:59] LABS: CALCIUM 9.1 mg/dL (8.5-10.1); CREATININE 1.5 mg/dL (0.55-1.3); POTASSIUM 4.3 mmol/L (3.5-5.1)
[2018-10-13 11:31] VITALS: TEMP 98.7
[2018-10-13 11:45] LABS: ERYTHROCYTE SEDIMENTATION RATE 69 mm/hr (0-20)
[2018-10-13 13:34] VITALS: BP 134/82; PULSE 88
== END 2018-10-13 12:30 | disposition home or self-care (01) ==
LOC: JINFUSION 09:06
PROVIDERS: ATTEND Internal Medicine Infectious Disease
DX: E11.621 Type 2 diabetes mellitus with foot ulcer (principal); L97.518 Non-pressure chronic ulcer of other part of right foot with other specified severity; M86.8X7 Other osteomyelitis, ankle and foot; Z79.4 Long term (current) use of insulin
CPT/HCPCS: 36415; 80048; 85027; 85651; 86140; 96365; 96366; 96367; G0480

== ENCOUNTER 2018-10-14 09:06 | Day surgery (SDC) | payer OTHER ==
[~2018-10-14 09:06] MED LIST changes: +VANCOMYCIN 1 GM in NS (PRE-DOCKED) 1,000 MG/250 ML IVPB ONE
[2018-10-14 10:22] VITALS: TEMP 98.6
[2018-10-14 13:29] VITALS: BP 124/81; PULSE 70
== END 2018-10-14 13:27 | disposition home or self-care (01) ==
LOC: JINFUSION 09:06
PROVIDERS: ATTEND Internal Medicine Infectious Disease
DX: E11.621 Type 2 diabetes mellitus with foot ulcer (principal); L97.518 Non-pressure chronic ulcer of other part of right foot with other specified severity; M86.8X7 Other osteomyelitis, ankle and foot; Z79.4 Long term (current) use of insulin
CPT/HCPCS: 96365; 96366; 96367

== ENCOUNTER 2018-10-15 09:06 | Day surgery (SDC) | payer OTHER ==
[~2018-10-15 09:06] MED LIST changes: -VANCOMYCIN 1 GM in NS (PRE-DOCKED) 1,000 MG/250 ML IVPB ONE
[2018-10-15 09:50] VITALS: TEMP 98.1
[2018-10-15 14:05] VITALS: BP 125/75; PULSE 72
== END 2018-10-15 13:49 | disposition home or self-care (01) ==
LOC: JINFUSION 09:06
PROVIDERS: ATTEND Internal Medicine Infectious Disease
DX: E11.621 Type 2 diabetes mellitus with foot ulcer (principal); L97.518 Non-pressure chronic ulcer of other part of right foot with other specified severity; M86.8X7 Other osteomyelitis, ankle and foot; Z79.4 Long term (current) use of insulin
CPT/HCPCS: 96365; 96366; 96367

== ENCOUNTER 2018-10-16 08:11 | Day surgery (SDC) | payer OTHER | END 2018-10-16 10:52 | disposition home or self-care (01) | LOC: JINFUSION 08:11 ==

== ENCOUNTER 2018-10-17 09:05 | Day surgery (SDC) | payer OTHER | END 2018-10-17 12:30 | disposition home or self-care (01) | LOC: JINFUSION 09:05 ==

== ENCOUNTER 2018-10-18 09:17 | Day surgery (SDC) | payer OTHER | END 2018-10-18 14:30 | disposition home or self-care (01) | LOC: JINFUSION 09:17 → J7W 09:18 → JINFUSION 14:30 ==

== ENCOUNTER 2018-10-19 10:26 | Day surgery (SDC) | payer OTHER ==
[2018-10-19] MEDS ORDERED: ERTAPENEM SODIUM 1 GM in SODIUM CHLORIDE 50 ML IVPB ONE (12:00)
[2018-10-19] MEDS ORDERED: VANCOMYCIN HCL 1,250 MG in SODIUM CHLORIDE 250 ML IVPB ONE (12:00)
[2018-10-19 12:19] VITALS: TEMP 97.5
[2018-10-19 14:31] VITALS: BP 144/80; PULSE 74
== END 2018-10-19 15:00 | disposition home or self-care (01) ==
LOC: J7W 10:26 → JINFUSION 10:26
PROVIDERS: ATTEND Internal Medicine Infectious Disease
DX: E11.621 Type 2 diabetes mellitus with foot ulcer (principal); L97.518 Non-pressure chronic ulcer of other part of right foot with other specified severity; M86.8X7 Other osteomyelitis, ankle and foot; Z79.4 Long term (current) use of insulin
CPT/HCPCS: 96365; 96366; 96367

== ENCOUNTER → 2018-10-31 | Day surgery (SDC) | payer OTHER | END | disposition home or self-care (01) | LOC: JRADIR 09:35 | PROVIDERS: ATTEND Internal Medicine Infectious Disease | PROC: 02PY03Z Removal of Infusion Device from Great Vessel, Open Approach (ICD-10-PCS; principal; 2018-10-31) | DX: Z45.2 Encounter for adjustment and management of vascular access device (principal) | CPT/HCPCS: 36589 ==